=== PATIENT | male | born 1975 | race African-American/Black ===

== ENCOUNTER 2016-08-28 09:29 | Inpatient (IN) | payer OTHER ==
[2016-08-28 10:09] VITALS: BMI 22.8
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
[2016-08-28] MEDS ORDERED: P-EPHED 60MG/TRIPROLIDI 2.5MG TABLET PO PRN (10:27)
[2016-08-28] MEDS ORDERED: MAGNESIUM HYDROX 2400MG/30ML ORAL SUSPENSION 30 ML CUP PO PRN (10:27)
[2016-08-28] MEDS ORDERED: diphenhydrAMINE HCL 50 MG CAPSULE PO PRN (10:27)
[2016-08-28] MEDS ORDERED: MAGNESIUM CITRATE 300 ML BOTTLE PO PRN (10:27)
[2016-08-28] MEDS ORDERED: IBUPROFEN 400 MG TABLET (FP) PO PRN (10:27)
[2016-08-28] MEDS ORDERED: chlordiazePOXIDE HCL 25 MG CAPSULE PO PRN (10:27)
[2016-08-28] MEDS ORDERED: ACETAMINOPHEN 325 MG TABLET (FP) PO PRN (10:27)
[2016-08-28] MEDS ORDERED: guaiFENesin/D-METHORPHAN HB 10 ML UNIT-DOSE CUPS PO PRN (10:27)
[2016-08-28] MEDS ORDERED: hydrOXYzine PAMOATE 50 MG CAPSULE (FP) PO PRN (10:27)
[2016-08-28] MEDS ORDERED: LOPERAMIDE HCL 2 MG CAPSULE PO PRN (10:27)
[2016-08-28] MEDS ORDERED: MENTHOL/PHENOL 1 EACH UD MM PRN (10:27)
[2016-08-28] MEDS ORDERED: ALBUTEROL SO4 6.7 GM HFA INHALER IH PRN (10:30)
[2016-08-28] MEDS ORDERED: chlordiazePOXIDE HCL 25 MG CAPSULE PO ONE (11:30)
[2016-08-28] MEDS ORDERED: ESTRADIOL 0.05 MG/24 HR TD SCH (12:00)
[2016-08-28] MEDS: BUDESONIDE/FORMETEROL FUMARATE 80/4.5 mcg INHALER IH SCH ×2 (12:50→22:47)
[2016-08-28] MEDS: SILVER SULFADIAZINE 1% TOP CREAM 400 GM JAR TP SCH ×2 (12:56→22:47)
[2016-08-28] MEDS: NICOTINE 21 MG/24 HOURS TOPICAL PATCH TD SCH (12:57)
[2016-08-28 14:43] LABS: URINE APPEARANCE CLEAR; URINE BILIRUBIN NEGATIVE (NEGATIVE); URINE BLOOD NEGATIVE (NEGATIVE); URINE COLOR LTYELLOW; URINE GLUCOSE (UA) NEGATIVE (NEGATIVE); URINE KETONE NEGATIVE (NEGATIVE); URINE LEUK ESTERASE NEGATIVE (NEGATIVE); URINE NITRITE NEGATIVE (NEGATIVE); URINE PROTEIN NEGATIVE (NEGATIVE); URINE UROBILINOGEN NEGATIVE E.U./dl (0.2-1.0)
[2016-08-28] MEDS: chlordiazePOXIDE HCL 25 MG CAPSULE PO SCH ×2 (17:12→22:46)
[2016-08-28] MEDS: THIAMINE HCL 100 MG TABLET (FP) PO SCH (22:47)
[2016-08-29] MEDS: chlordiazePOXIDE HCL 25 MG CAPSULE PO SCH ×4 (07:51→22:39)
[2016-08-29] MEDS ORDERED: ESTRADIOL 6 MG PO SCH (10:00)
[2016-08-29 10:31] LABS: ALBUMIN 3.3 g/dl (3.4-5.0); ANION GAP 11 (8-16); CALCIUM 8.5 mg/dL (8.5-10.1); CO2 27 mmol/L (21-32); COCKROFT - GAULT 84.58; GLUCOSE,RANDOM 103 mg/dL (74-106); SGOT/AST 37 U/L (15-37); SGPT/ALT 33 U/L (12-78)
[2016-08-29 10:33] LABS: ALK PHOS 55 U/L (45-117); BILIRUBIN,TOTAL 0.4 mg/dL (0.2-1.0)
[2016-08-29] MEDS: FINASTERIDE 5 MG TABLET (FP) PO SCH (10:47)
[2016-08-29] MEDS: FERROUS SO4 325 MG TABLET (FP) PO SCH (10:47)
[2016-08-29] MEDS: BUDESONIDE/FORMETEROL FUMARATE 80/4.5 mcg INHALER IH SCH ×2 (10:47→22:40)
[2016-08-29] MEDS: PRENATAL VITAMINS W/ FOLIC ACID TABLET (FP) PO SCH (10:47)
[2016-08-29] MEDS: SILVER SULFADIAZINE 1% TOP CREAM 400 GM JAR TP SCH ×2 (10:47→22:40)
[2016-08-29] MEDS: NICOTINE 21 MG/24 HOURS TOPICAL PATCH TD SCH (10:48)
--- NOTE | 2016-08-29 11:08 | EKG ---
Test Reason : Blood Pressure : / mmHG Vent. Rate : 085 BPM Atrial Rate : 085 BPM P-R Int : 124 ms QRS Dur : 094 ms QT Int : 364 ms P-R-T Axes : 080 072 058 degrees QTc Int : 433 ms NORMAL SINUS RHYTHM BIATRIAL ENLARGEMENT LEFT VENTRICULAR HYPERTROPHY ABNORMAL ECG NO PREVIOUS ECGS AVAILABLE Confirmed by MD NIKO, SHIKHA ([id number]) on 08/29/2016 11:07:48 AM Referred By: Confirmed By:SHIKHA POPE MD
[2016-08-29 11:17] LABS: MCH 26.7 pg (25.7-33.7); MCHC 32.2 g/dl (32.0-35.9); MEAN CELL VOLUME 83.1 fl (80-96); MEAN PLT VOLUME 8.4 fl (7.5-11.1); PLATELET COUNT 202 K/MM3 (134-434); RDW 13.6 % (11.9-15.9); WHITE BLOOD COUNT 6.7 K/mm3 (4.0-10.0)
--- NOTE | 2016-08-29 12:27 | PN ---
S CIWA - CIWA Score Nausea/Vomitin Muscle Tremors: 3 Anxiety: 3 Agitation: 3 Paroxysmal Sweats: 2 Orientation: 0-Oriented Tacttile Disturbances: 1-Very Mild Itch/Numbness Auditory Disturbances: 1-Very Mild Visual Disturbances: 1-Very Mild Sensitivity Headache: 2-Mild CIWA-Ar Total Score: 19 S Progress Note (SOAP) Subjective: ALERT,IRRITABLE,ANXIOUS,INTERRUPTED SLEEP,ORAL CANDIDIASIS Objective: 08/29/16 12:24 Vital Signs Temperature 99 F 08/29/16 09:48 Pulse Rate 99 H 08/29/16 09:48 Respiratory Rate 18 08/29/16 09:48 Blood Pressure 118/85 08/29/16 09:48 O2 Sat by Pulse Oximetry (%) 08/29/16 12:24 EKG NSR,LVH Laboratory Last Values WBC 6.7 K/mm3 (4.0-10.0) 08/29/16 07:40 RBC 4.65 M/mm3 (4.00-5.60) 08/29/16 07:40 Hgb 12.4 GM/dL (11.7-16.9) 08/29/16 07:40 Hct 38.6 % (35.4-49) 08/29/16 07:40 MCV 83.1 fl (80-96) 08/29/16 07:40 MCHC 32.2 g/dl (32.0-35.9) 08/29/16 07:40 RDW 13.6 % (11.9-15.9) 08/29/16 07:40 Plt Count 202 K/MM3 (134-434) D 08/29/16 07:40 MPV 8.4 fl (7.5-11.1) 08/29/16 07:40 Sodium 142 mmol/L (136-145) 08/29/16 07:40 Potassium 3.8 mmol/L (3.5-5.1) 08/29/16 07:40 Chloride 104 mmol/L (98-107) 08/29/16 07:40 Carbon Dioxide 27 mmol/L (21-32) 08/29/16 07:40 Anion Gap 11 (8-16) 08/29/16 07:40 BUN 13 mg/dL (7-18) D 08/29/16 07:40 Creatinine 1.0 mg/dL (0.7-1.3) 08/29/16 07:40 Creat Clearance w eGFR > 60 (>60) 08/29/16 07:40 Random Glucose 103 mg/dL (74-106) 08/29/16 07:40 Calcium 8.5 mg/dL (8.5-10.1) 08/29/16 07:40 Total Bilirubin 0.4 mg/dL (0.2-1.0) D 08/29/16 07:40 AST 37 U/L (15-37) D 08/29/16 07:40 ALT 33 U/L (12-78) 08/29/16 07:40 Alkaline Phosphatase 55 U/L (45-117) 08/29/16 07:40 Total Protein 7.0 g/dl (6.4-8.2) 08/29/16 07:40 Albumin 3.3 g/dl (3.4-5.0) L 08/29/16 07:40 Urine Color Ltyellow 08/28/16 13:00 Urine Appearance Clear 08/28/16 13:00 Urine pH 6.0 (5.0-8.0) 08/28/16 13:00 Ur Specific [place] 1.015 (1.005-1.025) 08/28/16 13:00 Urine Protein Negative (NEGATIVE) 08/28/16 13:00 Urine Glucose (UA) Negative (NEGATIVE) 08/28/16 13:00 Urine Ketones Negative (NEGATIVE) 08/28/16 13:00 Urine Blood Negative (NEGATIVE) 08/28/16 13:00 Urine Nitrite Negative (NEGATIVE) 08/28/16 13:00 Urine Bilirubin Negative (NEGATIVE) 08/28/16 13:00 Urine Urobilinogen Negative E.U./dl (0.2-1.0) 08/28/16 13:00 Ur Leukocyte Esterase Negative (NEGATIVE) 08/28/16 13:00 RPR Titer Nonreactive (NONREACTIVE) 08/29/16 07:40 Assessment: 08/29/16 12:27 WITHDRAWAL SYMPTOM Plan: CONTINUE DETOX
[2016-08-29] MEDS: MAG HYDROX/AL HYDROX/SIMETH 30 ML UNIT-DOSE CUP PO PRN (14:30)
[2016-08-29] MEDS: CLOTRIMAZOLE 10 MG TROCHE (FP) PO SCH ×3 (14:30→22:40)
[2016-08-29] MEDS: THIAMINE HCL 100 MG TABLET (FP) PO SCH (22:40)
[2016-08-30] MEDS: FERROUS SO4 325 MG TABLET (FP) PO SCH (07:31)
[2016-08-30] MEDS: CLOTRIMAZOLE 10 MG TROCHE (FP) PO SCH ×5 (07:32→22:30)
[2016-08-30] MEDS: chlordiazePOXIDE HCL 25 MG CAPSULE PO SCH ×2 (07:33→10:26)
[2016-08-30] MEDS: PRENATAL VITAMINS W/ FOLIC ACID TABLET (FP) PO SCH (10:26)
[2016-08-30] MEDS: FINASTERIDE 5 MG TABLET (FP) PO SCH (10:27)
[2016-08-30] MEDS: BUDESONIDE/FORMETEROL FUMARATE 80/4.5 mcg INHALER IH SCH ×2 (10:27→22:38)
[2016-08-30] MEDS: NICOTINE 21 MG/24 HOURS TOPICAL PATCH TD SCH (10:27)
--- NOTE | 2016-08-30 10:27 | PN ---
[facility] CIWA - CIWA Score Nausea/Vomitin-No Nausea/No Vomiting Muscle Tremors: 4-Moderate,w/Arms Extend Anxiety: 4-Mod. Anxious/Guarded Agitation: 4-Moderately Restless Paroxysmal Sweats: 3 Orientation: 0-Oriented Tacttile Disturbances: 0-None Auditory Disturbances: 0-None Visual Disturbances: 0-None Headache: 0-None Present CIWA-Ar Total Score: 15 BHS Progress Note (SOAP) Subjective: sweats interrupted sleep agitation diarrhea oral thrush Objective: 08/30/16 10:26 Vital Signs Temperature 98.1 F 08/30/16 09:58 Pulse Rate 92 H 08/30/16 09:58 Respiratory Rate 16 08/30/16 09:58 Blood Pressure 122/84 08/30/16 09:58 O2 Sat by Pulse Oximetry (%) Laboratory Tests 08/28/16 08/29/16 08/29/16 13:00 07:40 07:40 WBC 6.7 RBC 4.65 Hgb 12.4 Hct 38.6 MCV 83.1 MCHC 32.2 RDW 13.6 Plt Count 202 D MPV 8.4 Sodium 142 Potassium 3.8 Chloride 104 Carbon Dioxide 27 Anion Gap 11 BUN 13 D Creatinine 1.0 Creat Clearance w eGFR > 60 Random Glucose 103 Calcium 8.5 Total Bilirubin 0.4 D AST 37 D ALT 33 Alkaline Phosphatase 55 Total Protein 7.0 Albumin 3.3 L Urine Color Ltyellow Urine Appearance Clear Urine pH 6.0 Ur Specific [place] 1.015 Urine Protein Negative Urine Glucose (UA) Negative Urine Ketones Negative Urine Blood Negative Urine Nitrite Negative Urine Bilirubin Negative Urine Urobilinogen Negative Ur Leukocyte Esterase Negative RPR Titer 08/29/16 07:40 WBC RBC Hgb Hct MCV MCHC RDW Plt Count MPV Sodium Potassium Chloride Carbon Dioxide Anion Gap BUN Creatinine Creat Clearance w eGFR Random Glucose Calcium Total Bilirubin AST ALT Alkaline Phosphatase Total Protein Albumin Urine Color Urine Appearance Urine pH Ur Specific [place] Urine Protein Urine Glucose (UA) Urine Ketones Urine Blood Urine Nitrite Urine Bilirubin Urine Urobilinogen Ur Leukocyte Esterase RPR Titer Nonreactive awake/alert ambulating no acute distress Assessment: 08/30/16 10:26 withdrawal sx Plan: continue detox immodium prn increase fluids continue mycelex thrush
[2016-08-30] MEDS: SILVER SULFADIAZINE 1% TOP CREAM 400 GM JAR TP SCH ×2 (10:29→22:38)
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
[2016-08-30] MEDS: chlordiazePOXIDE 5 MG CAPSULE PO SCH ×2 (18:25→22:30)
[2016-08-30] MEDS: MAG HYDROX/AL HYDROX/SIMETH 30 ML UNIT-DOSE CUP PO PRN (19:19)
[2016-08-30] MEDS: THIAMINE HCL 100 MG TABLET (FP) PO SCH (22:30)
[2016-08-30] MEDS: QUEtiapine FUMARATE 100 MG TABLET (FP) PO SCH (22:30)
[2016-08-31] MEDS: chlordiazePOXIDE 5 MG CAPSULE PO SCH ×2 (06:57→10:53)
[2016-08-31] MEDS: CLOTRIMAZOLE 10 MG TROCHE (FP) PO SCH ×4 (06:57→17:41)
[2016-08-31] MEDS: FERROUS SO4 325 MG TABLET (FP) PO SCH (07:05)
--- NOTE | 2016-08-31 09:02 | PN ---
S Progress Note (SOAP) Objective: 08/31/16 09:01 Vital Signs Temperature 99.9 F H 08/31/16 06:31 Pulse Rate 62 08/31/16 06:31 Respiratory Rate 16 08/31/16 06:31 Blood Pressure 120/75 08/31/16 06:31 O2 Sat by Pulse Oximetry (%) Laboratory Tests 08/28/16 08/29/16 08/29/16 13:00 07:40 07:40 WBC 6.7 RBC 4.65 Hgb 12.4 Hct 38.6 MCV 83.1 MCHC 32.2 RDW 13.6 Plt Count 202 D MPV 8.4 Sodium 142 Potassium 3.8 Chloride 104 Carbon Dioxide 27 Anion Gap 11 BUN 13 D Creatinine 1.0 Creat Clearance w eGFR > 60 Random Glucose 103 Calcium 8.5 Total Bilirubin 0.4 D AST 37 D ALT 33 Alkaline Phosphatase 55 Total Protein 7.0 Albumin 3.3 L Urine Color Ltyellow Urine Appearance Clear Urine pH 6.0 Ur Specific [place] 1.015 Urine Protein Negative Urine Glucose (UA) Negative Urine Ketones Negative Urine Blood Negative Urine Nitrite Negative Urine Bilirubin Negative Urine Urobilinogen Negative Ur Leukocyte Esterase Negative RPR Titer 08/29/16 07:40 WBC RBC Hgb Hct MCV MCHC RDW Plt Count MPV Sodium Potassium Chloride Carbon Dioxide Anion Gap BUN Creatinine Creat Clearance w eGFR Random Glucose Calcium Total Bilirubin AST ALT Alkaline Phosphatase Total Protein Albumin Urine Color Urine Appearance Urine pH Ur Specific [place] Urine Protein Urine Glucose (UA) Urine Ketones Urine Blood Urine Nitrite Urine Bilirubin Urine Urobilinogen Ur Leukocyte Esterase RPR Titer Nonreactive Assessment: 08/31/16 09:02 witrhdrawal sx;s Plan: cont. detox increase fluids d/c in am
[2016-08-31] MEDS: PRENATAL VITAMINS W/ FOLIC ACID TABLET (FP) PO SCH (10:51)
[2016-08-31] MEDS: FINASTERIDE 5 MG TABLET (FP) PO SCH (10:51)
[2016-08-31] MEDS: BUDESONIDE/FORMETEROL FUMARATE 80/4.5 mcg INHALER IH SCH (10:52)
[2016-08-31] MEDS: SILVER SULFADIAZINE 1% TOP CREAM 400 GM JAR TP SCH (10:52)
[2016-08-31] MEDS: NICOTINE 21 MG/24 HOURS TOPICAL PATCH TD SCH (10:52)
[2016-08-31] MEDS: chlordiazePOXIDE HCL 10 MG CAPSULE PO SCH (17:41)
[2016-09-01] MEDS: CLOTRIMAZOLE 10 MG TROCHE (FP) PO SCH ×3 (00:14→10:35)
[2016-09-01] MEDS: chlordiazePOXIDE HCL 10 MG CAPSULE PO SCH ×3 (00:14→11:30)
[2016-09-01] MEDS: THIAMINE HCL 100 MG TABLET (FP) PO SCH (00:15)
[2016-09-01] MEDS: BUDESONIDE/FORMETEROL FUMARATE 80/4.5 mcg INHALER IH SCH ×2 (00:15→10:37)
[2016-09-01] MEDS: QUEtiapine FUMARATE 100 MG TABLET (FP) PO SCH (00:15)
[2016-09-01] MEDS: SILVER SULFADIAZINE 1% TOP CREAM 400 GM JAR TP SCH ×2 (00:15→10:36)
[2016-09-01] MEDS: FERROUS SO4 325 MG TABLET (FP) PO SCH (08:04)
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
[2016-09-01] MEDS: PRENATAL VITAMINS W/ FOLIC ACID TABLET (FP) PO SCH (10:35)
[2016-09-01] MEDS: FINASTERIDE 5 MG TABLET (FP) PO SCH (10:35)
[2016-09-01] MEDS: NICOTINE 21 MG/24 HOURS TOPICAL PATCH TD SCH (10:36)
[2016-09-01 10:48] VITALS: BP 126/98; PULSE 87; TEMP 97.3
== END 2016-09-01 11:49 | disposition home or self-care (01) | DRG 896 ==
LOC: YASAS 09:29 → Y6N 11:09
PROVIDERS: ADMIT Internal Medicine Addiction Medicine; ATTEND Internal Medicine Addiction Medicine
PROC: HZ2ZZZZ Detoxification Services for Substance Abuse Treatment (ICD-10-PCS; principal; 2016-08-28)
DX: F19.230 Other psychoactive substance dependence with withdrawal, uncomplicated (principal); B20 Human immunodeficiency virus [HIV] disease; F14.20 Cocaine dependence, uncomplicated; F10.230 Alcohol dependence with withdrawal, uncomplicated; F12.20 Cannabis dependence, uncomplicated; F17.210 Nicotine dependence, cigarettes, uncomplicated; F31.9 Bipolar disorder, unspecified; F19.24 Other psychoactive substance dependence with psychoactive substance-induced mood disorder; J45.909 Unspecified asthma, uncomplicated; I10 Essential (primary) hypertension; D64.9 Anemia, unspecified; Z86.69 Personal history of other diseases of the nervous system and sense organs; Z91.5 Personal history of self-harm; Z87.890 Personal history of sex reassignment; Z87.898 Personal history of other specified conditions; T54.3X1D Toxic effect of corrosive alkalis and alkali-like substances, accidental (unintentional), subsequent encounter; T25.7 Corrosion of third degree of ankle and foot
CPT/HCPCS: 36415; 80053; 81003; 85027; 86593; 93005; 93010

== ENCOUNTER 2016-11-01 12:10 | Inpatient (IN) | payer OTHER ==
[2016-11-01 16:24] VITALS: BMI 22.3
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
[2016-11-01] MEDS ORDERED: MAGNESIUM CITRATE 300 ML BOTTLE PO PRN (20:12)
[2016-11-01] MEDS ORDERED: LOPERAMIDE HCL 2 MG CAPSULE PO PRN (20:12)
[2016-11-01] MEDS ORDERED: guaiFENesin/D-METHORPHAN HB 10 ML UNIT-DOSE CUPS PO PRN (20:12)
[2016-11-01] MEDS ORDERED: P-EPHED 60MG/TRIPROLIDI 2.5MG TABLET PO PRN (20:12)
[2016-11-01] MEDS ORDERED: MENTHOL/PHENOL 1 EACH UD MM PRN (20:12)
[2016-11-01] MEDS ORDERED: diphenhydrAMINE HCL 50 MG CAPSULE PO PRN (20:12)
[2016-11-01] MEDS ORDERED: ACETAMINOPHEN 325 MG TABLET (FP) PO PRN (20:12)
[2016-11-01] MEDS ORDERED: chlordiazePOXIDE HCL 25 MG CAPSULE PO ONE (20:12)
[2016-11-01] MEDS ORDERED: MAGNESIUM HYDROX 2400MG/30ML ORAL SUSPENSION 30 ML CUP PO PRN (20:12)
[2016-11-01] MEDS ORDERED: chlordiazePOXIDE HCL 25 MG CAPSULE PO PRN (20:12)
[2016-11-01] MEDS ORDERED: MAG HYDROX/AL HYDROX/SIMETH 30 ML UNIT-DOSE CUP PO PRN (20:12)
[2016-11-01] MEDS ORDERED: hydrOXYzine PAMOATE 25 MG CAPSULE (FP) PO PRN (20:12)
[2016-11-01] MEDS ORDERED: IBUPROFEN 400 MG TABLET (FP) PO PRN (20:12)
[2016-11-01] MEDS: NICOTINE 21 MG/24 HOURS TOPICAL PATCH TD SCH (21:43)
[2016-11-01] MEDS: THIAMINE HCL 100 MG TABLET (FP) PO SCH (21:45)
[2016-11-01] MEDS: chlordiazePOXIDE HCL 25 MG CAPSULE PO SCH (23:07)
[2016-11-01 23:14] LABS: URINE APPEARANCE CLEAR; URINE BILIRUBIN NEGATIVE (NEGATIVE); URINE BLOOD NEGATIVE (NEGATIVE); URINE COLOR LTYELLOW; URINE GLUCOSE (UA) NEGATIVE (NEGATIVE); URINE KETONE NEGATIVE (NEGATIVE); URINE LEUK ESTERASE TRACE (NEGATIVE); URINE NITRITE NEGATIVE (NEGATIVE); URINE PROTEIN NEGATIVE (NEGATIVE); URINE UROBILINOGEN NEGATIVE mg/dL (0.2-1.0)
[2016-11-01 23:18] LABS: URINE BACTERIA RARE /hpf (NONE SEEN); URINE RBC 3 /hpf (0-3); URINE WBC 10 /hpf (3-5)
[2016-11-02] MEDS: chlordiazePOXIDE HCL 25 MG CAPSULE PO SCH ×4 (06:02→22:48)
[2016-11-02] MEDS: FERROUS SO4 325 MG TABLET (FP) PO SCH (08:31)
[2016-11-02] MEDS ORDERED: ABACAVIR SULFATE 300 MG PO SCH (10:00)
[2016-11-02] MEDS ORDERED: PATIENT'S OWN MEDICATION (NON-FORMULARY) (Dolutegravir Sodium 50 MG) PO SCH (10:00)
[2016-11-02] MEDS ORDERED: PATIENT'S OWN MEDICATION (NON-FORMULARY) (Darunavir/Cobicistat [Prezcobix 800 Mg-150 Mg Ta PO SCH (10:00)
[2016-11-02] MEDS ORDERED: ESTRADIOL 6 MG PO SCH (10:00)
[2016-11-02] MEDS: PRENATAL VITAMINS W/ FOLIC ACID TABLET (FP) PO SCH (10:22)
[2016-11-02] MEDS: NICOTINE 21 MG/24 HOURS TOPICAL PATCH TD SCH (10:23)
[2016-11-02 10:31] LABS: MCH 26.9 pg (25.7-33.7); MCHC 32.5 g/dl (32.0-35.9); MEAN CELL VOLUME 82.7 fl (80-96); PLATELET COUNT 196 K/MM3 (134-434); RDW 13.5 % (11.9-15.9); WHITE BLOOD COUNT 3.7 K/mm3 (4.0-10.0)
--- NOTE | 2016-11-02 10:54 | PN ---
S CIWA - CIWA Score Nausea/Vomitin-No Nausea/No Vomiting Muscle Tremors: 4-Moderate,w/Arms Extend Anxiety: 3 Agitation: 4-Moderately Restless Paroxysmal Sweats: 3 Orientation: 0-Oriented Tacttile Disturbances: 0-None Auditory Disturbances: 0-None Visual Disturbances: 0-None Headache: 1-Very Mild CIWA-Ar Total Score: 15 BHS Progress Note (SOAP) Subjective: irritable sweats shakes tired agitation I want my HIV meds at night time Objective: 11/02/16 10:53 Vital Signs Temperature 96.9 F L 11/02/16 10:40 Pulse Rate 75 11/02/16 10:40 Respiratory Rate 20 11/02/16 10:40 Blood Pressure 97/61 11/02/16 10:40 O2 Sat by Pulse Oximetry (%) Laboratory Tests 11/01/16 11/02/16 23:00 06:30 WBC 3.7 L D RBC 4.46 Hgb 12.0 Hct 36.9 MCV 82.7 MCH 26.9 MCHC 32.5 RDW 13.5 Plt Count 196 MPV 8.0 Urine Color Ltyellow Urine Appearance Clear Urine pH 5.0 Ur Specific [place] 1.025 Urine Protein Negative Urine Glucose (UA) Negative Urine Ketones Negative Urine Blood Negative Urine Nitrite Negative Urine Bilirubin Negative Urine Urobilinogen Negative Ur Leukocyte Esterase Trace Urine RBC 3 Urine WBC 10 Ur Epithelial Cells Rare Urine Bacteria Rare labs pending awake/alert ambulating no acute distress Assessment: 11/02/16 10:57 withdrawal sx Plan: continue detox increase fluids medication time changed to 10pm as per pt request. labs pending
[2016-11-02 10:59] LABS: ALK PHOS 41 U/L (45-117); ANION GAP 6 (8-16); BILIRUBIN,TOTAL 0.4 mg/dL (0.2-1.0); CALCIUM 8.1 mg/dL (8.5-10.1); CO2 25 mmol/L (21-32); CREATININE 0.9 mg/dL (0.7-1.3); GLUCOSE,RANDOM 87 mg/dL (74-106); SGOT/AST 31 U/L (15-37); SGPT/ALT 24 U/L (12-78); TOT PROT 6.3 g/dl (6.4-8.2)
[2016-11-02] MEDS ORDERED: SPIRONOLACTONE 50 MG PO SCH (11:00)
[2016-11-02] MEDS: SPIRONOLACTONE 50 MG PO SCH (12:15)
--- NOTE | 2016-11-02 16:10 | CONSULT ---
[facility] Psychiatric Consult - Data Date of interview: 11/02/16 Admission source: [facility] Identifying data: One of multiple admissions to [facility] for this 41 y/o transgender male seeking detox treatment on for alcohol,cannabis and cocaine (crack) dependence.Patient is single without children,domiciled and supported on [employer] funds. Substance Abuse History: Discussed in this interview.Patient confirmed all elements included in this [facility] report. - Smoking Cessation. Smoking history: Current every day smoker. Have you smoked in the past 12 months: Yes. Aproximately how many cigarettes per day: 20. Hx Chewing Tobacco Use: No. Initiated information on smoking cessation: Yes. 'Breaking Loose' booklet given : 11/01/16. - Substance & Tx. History. Hx Alcohol Use: Yes. Hx Substance Use : No. Substance Use Type: Alcohol, Cocaine. Hx Substance Use Treatment: Yes ( [facility] 08/28/16 to 09/01/16). - Substances Abused. Alcohol. Route: Oral. Frequency: Daily. Amount used: liquor- 2 pints, beer- 2 six packs. Age of first use: 12. Date of Last Use: 11/01/16. Cocaine. Route: Smoking. Frequency: Daily. Amount used: 100$. Age of first use: 23. Date of Last Use: 11/01/16. Appreciated. Medical History: No changes : HIV infection (1999),bronchial asthma,anemia and recent onset of seizures (drug-related) in 2016. Psychiatric History: Patient is an unreliable historian.In this interview he denies having a psychiatric history.This contrasts with information provided to this resume writer in a previous interview on 08/30/16 .As follows : " history of three psychiatric hospitalizations since childhood.First psychiatric problems are reported to having occurred at age 12 (first suicide attempt and hospitalization at [facility]).Patient states that she used the antihypertensive medications of her grand mother.Ms Hinojosa is known to several institutions : [facility].Patient endorses the diagnosis of Bipolar Disorder but she also indicates total non-adherence to OPD care." I don't see psychiatrists outside.I used to go to [facility]." No recent history of suicide attempts.End of quotation. Physical/Sexual Abuse/Trauma History: Patient declines to discuss this domain. Additional Comment: Urine Drug Screen Results: YANNICK-Cocaine.Noted. Mental Status Exam - Mental Status Exam Alert and Oriented to: Time, Place, Person Cognitive Function: Good Patient Appearance: Unkempt, Disheveled Mood: Euthymic Affect: Normal Range Patient Behavior: Passive (indifferent,unconcerned), Cooperative (superficially) Speech Pattern: Clear Voice Loudness: Normal Thought Process: Goal Oriented Thought Disorder: Not Present Hallucinations: Denies Suicidal Ideation: Denies Homicidal Ideation: Denies Insight/Judgement: Poor Sleep: Well Appetite: Good Muscle strength/Tone: Normal Gait/Station: Normal Psychiatric Findings - Problem List ([place] 1, 2,3) (1) Alcohol dependence with uncomplicated withdrawal Current Visit: Yes Status: Acute (2) Cocaine dependence Current Visit: Yes Status: Acute (3) Nicotine dependence Current Visit: Yes Status: Acute Qualifiers: Nicotine product type: cigarettes Substance use status: uncomplicated Qualified Code(s): F17.210 - Nicotine dependence, cigarettes, uncomplicated (4) Acquired immune deficiency syndrome (AIDS) Current Visit: Yes Status: Chronic (5) Asthma Current Visit: Yes Status: Chronic Qualifiers: Asthma severity: mild persistent (6) HTN (hypertension) Current Visit: Yes Status: Chronic Qualifiers: Hypertension type: essential hypertension Qualified Code(s): I10 - Essential (primary) hypertension - Initial Treatment Plan Initial Treatment Plan: Psychoeducation offered (patient not receptive) .Detoxification in progress.Observation.
--- NOTE | 2016-11-02 21:57 | EKG ---
Test Reason : Blood Pressure : / mmHG Vent. Rate : 062 BPM Atrial Rate : 062 BPM P-R Int : 136 ms QRS Dur : 096 ms QT Int : 424 ms P-R-T Axes : 066 071 065 degrees QTc Int : 430 ms NORMAL SINUS RHYTHM ST ELEVATION, CONSIDER EARLY REPOLARIZATION WHEN COMPARED WITH ECG OF 28-AUG-2016 11:06, NO SIGNIFICANT CHANGE WAS FOUND Confirmed by JOVANA NIELSON MD ([id number]) on 11/02/2016 9:57:01 PM Referred By: Confirmed By:JOVANA NIELSON MD
[2016-11-02] MEDS: THIAMINE HCL 100 MG TABLET (FP) PO SCH (22:48)
[2016-11-02] MEDS: PATIENT'S OWN MEDICATION (NON-FORMULARY) (Dolutegravir Sodium 50 MG) PO SCH (22:51)
[2016-11-02] MEDS: PATIENT'S OWN MEDICATION (NON-FORMULARY) (Darunavir/Cobicistat [Prezcobix 800 Mg-150 Mg Ta PO SCH (22:52)
[2016-11-02] MEDS: ABACAVIR SULFATE 600 MG PO SCH (22:52)
[2016-11-03] MEDS: chlordiazePOXIDE HCL 25 MG CAPSULE PO SCH ×4 (06:25→18:02)
[2016-11-03] MEDS: FERROUS SO4 325 MG TABLET (FP) PO SCH (08:16)
--- NOTE | 2016-11-03 10:31 | PN ---
S CIWA - CIWA Score Nausea/Vomitin-No Nausea/No Vomiting Muscle Tremors: 4-Moderate,w/Arms Extend Anxiety: 3 Agitation: 3 Paroxysmal Sweats: 3 Orientation: 0-Oriented Tacttile Disturbances: 0-None Auditory Disturbances: 0-None Visual Disturbances: 0-None Headache: 0-None Present CIWA-Ar Total Score: 13 S Progress Note (SOAP) Subjective: sweats interrupted sleep irritable Objective: 11/03/16 10:30 Vital Signs Temperature 98.7 F 11/03/16 10:00 Pulse Rate 82 11/03/16 10:00 Respiratory Rate 16 11/03/16 10:00 Blood Pressure 116/86 11/03/16 10:00 O2 Sat by Pulse Oximetry (%) Laboratory Tests 11/01/16 11/02/16 11/02/16 23:00 06:30 06:30 WBC 3.7 L D RBC 4.46 Hgb 12.0 Hct 36.9 MCV 82.7 MCH 26.9 MCHC 32.5 RDW 13.5 Plt Count 196 MPV 8.0 Sodium 142 Potassium 3.7 Chloride 111 H Carbon Dioxide 25 Anion Gap 6 L BUN 21 H D Creatinine 0.9 Creat Clearance w eGFR > 60 Random Glucose 87 Calcium 8.1 L Total Bilirubin 0.4 AST 31 ALT 24 D Alkaline Phosphatase 41 L D Total Protein 6.3 L Albumin 3.0 L Urine Color Ltyellow Urine Appearance Clear Urine pH 5.0 Ur Specific [place] 1.025 Urine Protein Negative Urine Glucose (UA) Negative Urine Ketones Negative Urine Blood Negative Urine Nitrite Negative Urine Bilirubin Negative Urine Urobilinogen Negative Ur Leukocyte Esterase Trace Urine RBC 3 Urine WBC 10 Ur Epithelial Cells Rare Urine Bacteria Rare RPR Titer 11/02/16 06:30 WBC RBC Hgb Hct MCV MCH MCHC RDW Plt Count MPV Sodium Potassium Chloride Carbon Dioxide Anion Gap BUN Creatinine Creat Clearance w eGFR Random Glucose Calcium Total Bilirubin AST ALT Alkaline Phosphatase Total Protein Albumin Urine Color Urine Appearance Urine pH Ur Specific [place] Urine Protein Urine Glucose (UA) Urine Ketones Urine Blood Urine Nitrite Urine Bilirubin Urine Urobilinogen Ur Leukocyte Esterase Urine RBC Urine WBC Ur Epithelial Cells Urine Bacteria RPR Titer Nonreactive awake/alert ambulating no acute distress Assessment: 11/03/16 10:30 withdrawal sx Plan: continue detox increase fluids
[2016-11-03] MEDS: PRENATAL VITAMINS W/ FOLIC ACID TABLET (FP) PO SCH (10:50)
[2016-11-03] MEDS: NICOTINE 21 MG/24 HOURS TOPICAL PATCH TD SCH (10:52)
[2016-11-03] MEDS: ESTRADIOL 2 MG PO SCH (10:53)
[2016-11-03] MEDS: SPIRONOLACTONE 50 MG PO SCH (10:53)
[2016-11-03] MEDS: chlordiazePOXIDE 5 MG CAPSULE PO SCH (22:06)
[2016-11-03] MEDS: THIAMINE HCL 100 MG TABLET (FP) PO SCH (22:07)
[2016-11-03] MEDS: PATIENT'S OWN MEDICATION (NON-FORMULARY) (Dolutegravir Sodium 50 MG) PO SCH (22:08)
[2016-11-03] MEDS: ABACAVIR SULFATE 600 MG PO SCH (22:08)
[2016-11-03] MEDS: PATIENT'S OWN MEDICATION (NON-FORMULARY) (Darunavir/Cobicistat [Prezcobix 800 Mg-150 Mg Ta PO SCH (22:08)
[2016-11-04] MEDS: chlordiazePOXIDE 5 MG CAPSULE PO SCH ×3 (06:10→17:08)
[2016-11-04] MEDS: FERROUS SO4 325 MG TABLET (FP) PO SCH (07:44)
[2016-11-04] MEDS: PRENATAL VITAMINS W/ FOLIC ACID TABLET (FP) PO SCH (10:37)
[2016-11-04] MEDS: ESTRADIOL 2 MG PO SCH (10:38)
[2016-11-04] MEDS: NICOTINE 21 MG/24 HOURS TOPICAL PATCH TD SCH (10:39)
[2016-11-04] MEDS: SPIRONOLACTONE 50 MG PO SCH (10:39)
--- NOTE | 2016-11-04 12:11 | PN ---
BHS Progress Note (SOAP) Subjective: Nausea (mild). Objective: PT. A & O X 3, OBSERVED AMBULATING ON UNIT. NO ACUTE DISTRESS. 11/04/16 12:10 Vital Signs Temperature 97.8 F 11/04/16 10:00 Pulse Rate 86 11/04/16 10:00 Respiratory Rate 18 11/04/16 10:00 Blood Pressure 124/71 11/04/16 10:00 O2 Sat by Pulse Oximetry (%) Laboratory Tests 11/01/16 11/02/16 11/02/16 23:00 06:30 06:30 WBC 3.7 L D RBC 4.46 Hgb 12.0 Hct 36.9 MCV 82.7 MCH 26.9 MCHC 32.5 RDW 13.5 Plt Count 196 MPV 8.0 Sodium 142 Potassium 3.7 Chloride 111 H Carbon Dioxide 25 Anion Gap 6 L BUN 21 H D Creatinine 0.9 Creat Clearance w eGFR > 60 Random Glucose 87 Calcium 8.1 L Total Bilirubin 0.4 AST 31 ALT 24 D Alkaline Phosphatase 41 L D Total Protein 6.3 L Albumin 3.0 L Urine Color Ltyellow Urine Appearance Clear Urine pH 5.0 Ur Specific [place] 1.025 Urine Protein Negative Urine Glucose (UA) Negative Urine Ketones Negative Urine Blood Negative Urine Nitrite Negative Urine Bilirubin Negative Urine Urobilinogen Negative Ur Leukocyte Esterase Trace Urine RBC 3 Urine WBC 10 Ur Epithelial Cells Rare Urine Bacteria Rare RPR Titer 11/02/16 06:30 WBC RBC Hgb Hct MCV MCH MCHC RDW Plt Count MPV Sodium Potassium Chloride Carbon Dioxide Anion Gap BUN Creatinine Creat Clearance w eGFR Random Glucose Calcium Total Bilirubin AST ALT Alkaline Phosphatase Total Protein Albumin Urine Color Urine Appearance Urine pH Ur Specific [place] Urine Protein Urine Glucose (UA) Urine Ketones Urine Blood Urine Nitrite Urine Bilirubin Urine Urobilinogen Ur Leukocyte Esterase Urine RBC Urine WBC Ur Epithelial Cells Urine Bacteria RPR Titer Nonreactive LABS NOTED. Assessment: 11/04/16 12:10 WITHDRAWAL SYMPTOMS. Plan: CONTINUE DETOX.
[2016-11-04] MEDS: chlordiazePOXIDE HCL 10 MG CAPSULE PO SCH (22:19)
[2016-11-04] MEDS: ABACAVIR SULFATE 600 MG PO SCH (22:19)
[2016-11-04] MEDS: PATIENT'S OWN MEDICATION (NON-FORMULARY) (Dolutegravir Sodium 50 MG) PO SCH (22:19)
[2016-11-04] MEDS: THIAMINE HCL 100 MG TABLET (FP) PO SCH (22:19)
[2016-11-04] MEDS: PATIENT'S OWN MEDICATION (NON-FORMULARY) (Darunavir/Cobicistat [Prezcobix 800 Mg-150 Mg Ta PO SCH (22:19)
[2016-11-05] MEDS: chlordiazePOXIDE HCL 10 MG CAPSULE PO SCH ×3 (07:37→17:25)
[2016-11-05] MEDS: FERROUS SO4 325 MG TABLET (FP) PO SCH (08:47)
[2016-11-05] MEDS: ESTRADIOL 2 MG PO SCH (09:44)
[2016-11-05] MEDS: SPIRONOLACTONE 50 MG PO SCH (09:45)
[2016-11-05] MEDS: PRENATAL VITAMINS W/ FOLIC ACID TABLET (FP) PO SCH (09:45)
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
[2016-11-05] MEDS: NICOTINE 21 MG/24 HOURS TOPICAL PATCH TD SCH (10:42)
[2016-11-05] MEDS ORDERED: diphenhydrAMINE HCL 50 MG CAPSULE PO PRN (21:46)
[2016-11-05] MEDS ORDERED: ACETAMINOPHEN 325 MG TABLET (FP) PO PRN (21:46)
[2016-11-05] MEDS ORDERED: guaiFENesin/D-METHORPHAN HB 10 ML UNIT-DOSE CUPS PO PRN ×3 (21:46→21:49)
[2016-11-05] MEDS ORDERED: IBUPROFEN 400 MG TABLET (FP) PO PRN ×2 (21:47→21:48)
[2016-11-05] MEDS ORDERED: LOPERAMIDE HCL 2 MG CAPSULE PO PRN ×2 (21:47→21:48)
[2016-11-05] MEDS ORDERED: hydrOXYzine PAMOATE 25 MG CAPSULE (FP) PO PRN ×2 (21:47→21:48)
[2016-11-05] MEDS ORDERED: MAG HYDROX/AL HYDROX/SIMETH 30 ML UNIT-DOSE CUP PO PRN (21:48)
[2016-11-05] MEDS ORDERED: P-EPHED 60MG/TRIPROLIDI 2.5MG TABLET PO PRN (21:50)
[2016-11-05] MEDS ORDERED: MAGNESIUM CITRATE 300 ML BOTTLE PO PRN (21:50)
[2016-11-05] MEDS ORDERED: MAGNESIUM HYDROX 2400MG/30ML ORAL SUSPENSION 30 ML CUP PO PRN (21:51)
[2016-11-05] MEDS ORDERED: MENTHOL/PHENOL 1 EACH UD MM PRN (21:51)
[2016-11-05] MEDS: ABACAVIR SULFATE 600 MG PO SCH (21:53)
[2016-11-05] MEDS ORDERED: PATIENT'S OWN MEDICATION (NON-FORMULARY) (Darunavir/Cobicistat [Prezcobix 800 Mg-150 Mg Ta PO SCH (22:00)
[2016-11-05] MEDS ORDERED: ABACAVIR SULFATE 600 MG PO SCH (22:00)
[2016-11-05] MEDS ORDERED: PATIENT'S OWN MEDICATION (NON-FORMULARY) (Dolutegravir Sodium 50 MG) PO SCH (22:00)
[2016-11-05] MEDS ORDERED: THIAMINE HCL 100 MG TABLET (FP) PO SCH (22:00)
[2016-11-06 07:29] VITALS: BP 113/75; PULSE 73; TEMP 98.1
[2016-11-06] MEDS ORDERED: FERROUS SO4 325 MG TABLET (FP) PO SCH (08:00)
[2016-11-06] MEDS ORDERED: PT OWN MED DRAWER 7, Y5N ONE (08:00)
[2016-11-06] MEDS ORDERED: NICOTINE 21 MG/24 HOURS TOPICAL PATCH TD SCH (10:00)
[2016-11-06] MEDS ORDERED: SPIRONOLACTONE 50 MG PO SCH (10:00)
[2016-11-06] MEDS ORDERED: PRENATAL VITAMINS W/ FOLIC ACID TABLET (FP) PO SCH (10:00)
[2016-11-06] MEDS ORDERED: ESTRADIOL 2 MG PO SCH (10:00)
== END 2016-11-06 09:20 | disposition left against medical advice (07) | DRG 894 ==
LOC: YASAS 12:10 → Y6N 18:42 → Y3E 11-05 11:24
PROVIDERS: ADMIT Internal Medicine; ATTEND Psychiatry & Neurology Psychiatry
PROC: HZ42ZZZ Group Counseling for Substance Abuse Treatment, Cognitive-Behavioral (ICD-10-PCS; principal; 2016-11-06)
DX: F10.230 Alcohol dependence with withdrawal, uncomplicated (principal); B20 Human immunodeficiency virus [HIV] disease; F14.20 Cocaine dependence, uncomplicated; F12.20 Cannabis dependence, uncomplicated; F17.210 Nicotine dependence, cigarettes, uncomplicated; F39 Unspecified mood [affective] disorder; F19.24 Other psychoactive substance dependence with psychoactive substance-induced mood disorder; I10 Essential (primary) hypertension; D64.9 Anemia, unspecified; Z86.69 Personal history of other diseases of the nervous system and sense organs; Z91.5 Personal history of self-harm; Z87.890 Personal history of sex reassignment; R63.4 Abnormal weight loss; Z68.22 Body mass index [BMI] 22.0-22.9, adult; F64.8 Other gender identity disorders
CPT/HCPCS: 36415; 80053; 81003; 81015; 85027; 86593; 93005; 93010

== ENCOUNTER 2019-02-27 16:18 | Inpatient (IN) | payer OTHER ==
[2019-02-27 19:51] VITALS: BMI 23.4
--- NOTE | 2019-02-27 21:40 | HP ---
CIWA Score Nausea/Vomitin Muscle Tremors: 3 Anxiety: 2 Agitation: 2 Paroxysmal Sweats: 2 Orientation: 0-Oriented Tacttile Disturbances: 0-None Auditory Disturbances: 0-None Visual Disturbances: 0-None Headache: 1-Very Mild CIWA-Ar Total Score: 12 - Admission Criteria OASAS Guidelines: Admission for Medically Managed Detox: Requires at least one of the followin. CIWA greater than 12 2. Seizures within the past 24 hours 3. Delirium tremens within the past 24 hours 4. Hallucinations within the past 24 hours 5. Acute intervention needed for co occurring medical disorder 6. Acute intervention needed for co occurring psychiatric disorder 7. Severe withdrawal that cannot be handled at a lower level of care (continued vomiting, continued diarrhea, abnormal vital signs) requiring intravenous medication and/or fluids 8. Patient presents the following: CIWA greater than 12 Admission Criteria Met: Admission criteria met Admitting History and Physical - Past Medical History ...LMP: 10/01/13 - Smoking History Smoking history: Current every day smoker Have you smoked in the past 12 months: Yes Aproximately how many cigarettes per day: 20 - Alcohol/Substance Use Hx Alcohol Use: Yes Admission ROS [facility] Chief Complaint: alcohol detox Allergies/Adverse Reactions: Allergies Allergy/AdvReac Type Severity Reaction Status Date / Time No Known Allergies Allergy Verified 02/27/19 19:38 History of Present Illness: 43 yo with HIV pos, asthma, no MH problems, was last here 2 years ago. Since then pt has been in an outpt program at [facility]-alcohol support groups, HIV care. Pt states she has been drinking a lot: 2 6packs/day- h/o blackouts, no seizures. Cocaine 4 times a week- $100 each time. HIV- Biktarvy, takes it every day, does not know CD4 or VL. DUR- no controlled meds Utox- THC, carlos, RUPA-0 - Ebola screening Have you traveled outside of the country in the last 21 days: No (N) Have you had contact with anyone from an Ebola affected area: No Do you have a fever: No - Review of Systems Constitutional: No Symptoms Reported EENT: reports: No Symptoms Reported Respiratory: reports: No Symptoms reported Cardiac: reports: No Symptoms Reported GI: reports: No Symptoms Reported : reports: No Symptoms Reported Musculoskeletal: reports: No Symptoms Reported Integumentary: reports: No Symptoms Reported Neuro: reports: No Symptoms reported Endocrine: reports: No Symptoms Reported Hematology: reports: No Symptoms Reported Psychiatric: reports: No Sypmtoms Reported Other Systems: Reviewed and Negative Patient History - Patient Medical History Hx Anemia: Yes (non compliance) Hx Asthma: Yes (on albuterol inhaler) Hx Chronic Obstructive Pulmonary Disease (COPD): No Hx Cancer: No Hx Cardiac Disorders: No Hx Congestive Heart Failure: No Hx Hypertension: No Hx Hypercholesterolemia: No Hx Pacemaker: No HX Cerebrovascular Accident: No Hx Seizures: No Hx Dementia: No Hx Diabetes: No Hx Gastrointestinal Disorders: No Hx Liver Disease: No Hx Genitourinary Disorders: No Hx Sexually Transmitted Disorders: No Hx Renal Disease (ESRD): No Hx Human Immunodeficiency Virus (HIV): Yes (SINCE 1999 - t cells ? 300) Hx Hepatitis C: No Hx Depression: Yes Hx Suicide Attempt: Yes (DRUG OVERDOSE A teen) Hx Bipolar Disorder: Yes Hx Schizophrenia: No - Patient Surgical History Past Surgical History: No Hx Neurologic Surgery: No Hx Cataract Extraction: No Hx Cardiac Surgery: No Hx Lung Surgery: No Hx Breast Surgery: No Hx Breast Biopsy: No Hx Abdominal Surgery: No Hx Appendectomy: No Hx Cholecystectomy: No Hx Genitourinary Surgery: No Hx Section: No Hx Orthopedic Surgery: No Anesthesia Reaction: No - PPD History Date: 08/30/16 Results: 0 - Reproductive History Last Menstrual Period: 10/01/13 - Smoking Cessation Smoking history: Current every day smoker Have you smoked in the past 12 months: Yes Aproximately how many cigarettes per day: 20 Hx Chewing Tobacco Use: No Initiated information on smoking cessation: Yes 'Breaking Loose' booklet given: 02/27/19 - Substances abused Alcohol Substance route: Oral Frequency: Daily Amount used: 2 six packs 12 oz cans Age of first use: 12 Date of last use: 02/27/19 Heroin Substance route: Smoking Frequency: 3-6 times per week Amount used: 1bag Age of first use: 40 Date of last use: 02/24/19 Crack Substance route: Smoking Frequency: Daily Amount used: $100/day Age of first use: 23 Date of last use: 02/26/19 Admission Physical Exam BHS - Vital Signs Vital Signs: Vital Signs - 24 hr 02/27/19 19:45 Temperature 99.6 F Pulse Rate 93 H Respiratory 18 Rate Blood Pressure 123/77 - Physical General Appearance: Yes: Within Normal Limits, Disheveled HEENTM: Yes: Within Normal Limits, Hearing grossly Normal, Normocephalic, Normal Voice Respiratory: Yes: Within Normal Limits, Lungs Clear Neck: Yes: Within Normal Limits Cardiology: Yes: Within Normal Limits, Regular Rhythm, Regular Rate Abdominal: Yes: Within Normal Limits, Normal Bowel Sounds Genitourinary: Yes: Within Normal Limits Back: Yes: Within Normal Limits, Normal Inspection Musculoskeletal: Yes: Within Normal Limits Extremities: Yes: Within Normal Limits, Normal Inspection Neurological: Yes: Within Normal Limits, kai[place] kura [place] maori II-XII NML intact, Fully Oriented Integumentary: Yes: Within Normal Limits Lymphatic: Yes: Within Normal Limits - Diagnostic (1) Acquired immune deficiency syndrome (AIDS) Current Visit: No Status: Chronic (2) Alcohol dependence with uncomplicated withdrawal Current Visit: No Status: Chronic (3) Asthma Current Visit: No Status: Chronic Qualifiers: Asthma severity: mild persistent (4) Cocaine dependence Current Visit: No Status: Chronic (5) Nicotine dependence Current Visit: No Status: Chronic Qualifiers: Nicotine product type: cigarettes Substance use status: uncomplicated Qualified Code(s): F17.210 - Nicotine dependence, cigarettes, uncomplicated Breathalyzer - Breathalyzer Breathalyzer: 0 Urine Drug Screen - Test Device Lot number: [id number] Expiration date: 11/07/20 - Results Urine drug screen results: THC-Marijuana, CARLOS-Cocaine Inpatient Rehab Admission - Rehab Decision to Admit Inpatient rehab admission?: No
[2019-02-27] MEDS ORDERED: NICOTINE POLACRILEX 2 MG GUM BUC PRN (21:48)
[2019-02-27] MEDS ORDERED: MAG HYDROX/AL HYDROX/SIMETH 30 ML UNIT-DOSE CUP PO PRN (21:48)
[2019-02-27] MEDS ORDERED: ONDANSETRON *ODT* 4 MG TABLET SL PRN (21:48)
[2019-02-27] MEDS ORDERED: MENTHOL/PHENOL 1 EACH UD MM PRN (21:48)
[2019-02-27] MEDS ORDERED: LORazepam 1 MG TABLET PO PRN (21:48)
[2019-02-27] MEDS ORDERED: MAGNESIUM HYDROX 2400MG/30ML ORAL SUSPENSION 30 ML CUP PO PRN (21:48)
[2019-02-27] MEDS ORDERED: ACETAMINOPHEN 325 MG TABLET (FP) PO PRN ×2 (21:48)
[2019-02-27] MEDS ORDERED: METHOCARBAMOL 500 MG TABLET PO PRN (21:48)
[2019-02-27] MEDS ORDERED: MELATONIN 5 MG TABLETS PO PRN (21:48)
[2019-02-27] MEDS ORDERED: IBUPROFEN 400 MG TABLET (FP) PO PRN (21:48)
[2019-02-27] MEDS ORDERED: MAGNESIUM CITRATE 300 ML BOTTLE PO PRN (21:48)
[2019-02-27] MEDS ORDERED: BISMUTH SUBSALICYLATE 524 MG/30 ML UD PO PRN (21:48)
[2019-02-27] MEDS ORDERED: hydrOXYzine PAMOATE 25 MG CAPSULE (FP) PO PRN (21:48)
[2019-02-27] MEDS ORDERED: ALBUTEROL SO4 8 GM HFA INHALER IH PRN (22:00)
[2019-02-27] MEDS: QUEtiapine FUMARATE 50 MG TABLET PO SCH (23:20)
[2019-02-27] MEDS: LORazepam 2 MG TABLET PO SCH (23:20)
[2019-02-27] MEDS: THIAMINE HCL 100 MG TABLET (FP) PO SCH (23:22)
[2019-02-28] MEDS: LORazepam 2 MG TABLET PO SCH ×4 (06:34→22:12)
[2019-02-28] MEDS ORDERED: PATIENT'S OWN MEDICATION (NON-FORMULARY) (Bictegrav/Emtricit/Tenofov Ala 1 EACH) PO SCH (10:00)
[2019-02-28 10:14] LABS: HEMOGLOBIN 12.6 GM/dL (10.7-15.3); MCH 27.6 pg (25.7-33.7); MCHC 32.2 g/dl (32.0-36.0); MEAN CELL VOLUME 85.8 fl (80-96); MEAN PLT VOLUME 7.5 fl (7.5-11.1); PLATELET COUNT 270 K/MM3 (134-434); RBC 4.55 M/mm3 (3.60-5.2); RDW 14.4 % (11.6-15.6); WHITE BLOOD COUNT 4.2 K/mm3 (4.0-10.0)
[2019-02-28] MEDS: NICOTINE 21 MG/24 HOURS TOPICAL PATCH TD SCH (10:24)
[2019-02-28] MEDS: SULFAMETHOXAZOLE/TRIMETHOPRIM 800MG/160MG D.S. TABLET PO SCH (10:24)
[2019-02-28] MEDS: PRENATAL VITAMINS W/ FOLIC ACID TABLET (FP) PO SCH (10:24)
[2019-02-28 10:30] LABS: ALBUMIN 2.9 g/dl (3.4-5.0); BILIRUBIN,TOTAL 0.2 mg/dL (0.2-1); BLOOD UREA NITROGEN 20.9 mg/dL (7-18); CALCIUM 8.4 mg/dL (8.5-10.1); CREATININE 1.2 mg/dL (0.55-1.3); POTASSIUM 4.1 mmol/L (3.5-5.1); TOT PROT 6.1 g/dl (6.4-8.2)
[2019-02-28] MEDS: BICTEGRAV/EMTRICIT/TENOFOV (BIKTARVY) 50-200-25 MG TABLET PO SCH (11:00)
[2019-02-28] MEDS: BUDESONIDE/FORMETEROL FUMARATE 80/4.5 mcg INHALER IH SCH ×2 (11:00→22:08)
[2019-02-28] MEDS: ESTRADIOL 2 MG TABLET (NON-FORMULARY) PO SCH (11:00)
--- NOTE | 2019-02-28 12:07 | PN ---
S CIWA - CIWA Score Nausea/Vomitin-Mild Nausea/No Vomiting Muscle Tremors: 3 Anxiety: 3 Agitation: 2 Paroxysmal Sweats: 2 Orientation: 0-Oriented Tacttile Disturbances: 1-Very Mild Itch/Numbness Auditory Disturbances: 0-None Visual Disturbances: 0-None Headache: 1-Very Mild CIWA-Ar Total Score: 13 BHS Progress Note (SOAP) Subjective: 43 years old female admitted on 02/27/19 for alcohol withdrawal sx management treated with ativan detox regimen ate breakfast resting on bed sleeping comfortably limited conversation with staff Objective: 02/28/19 12:10 Vital Signs Temperature 97.5 F L 02/28/19 09:18 Pulse Rate 96 H 02/28/19 09:18 Respiratory Rate 18 02/28/19 09:18 Blood Pressure 112/73 02/28/19 09:18 O2 Sat by Pulse Oximetry (%) Laboratory Last Values WBC 4.2 K/mm3 (4.0-10.0) 02/28/19 08:15 RBC 4.55 M/mm3 (3.60-5.2) 02/28/19 08:15 Hgb 12.6 GM/dL (10.7-15.3) 02/28/19 08:15 Hct 39.0 % (32.4-45.2) 02/28/19 08:15 MCV 85.8 fl (80-96) 02/28/19 08:15 MCH 27.6 pg (25.7-33.7) 02/28/19 08:15 MCHC 32.2 g/dl (32.0-36.0) 02/28/19 08:15 RDW 14.4 % (11.6-15.6) 02/28/19 08:15 Plt Count 270 K/MM3 (134-434) D 02/28/19 08:15 MPV 7.5 fl (7.5-11.1) 02/28/19 08:15 Sodium 140 mmol/L (136-145) 02/28/19 08:15 Potassium 4.1 mmol/L (3.5-5.1) 02/28/19 08:15 Chloride 108 mmol/L (98-107) H 02/28/19 08:15 Carbon Dioxide 26 mmol/L (21-32) 02/28/19 08:15 Anion Gap 7 MMOL/L (8-16) L 02/28/19 08:15 BUN 20.9 mg/dL (7-18) H 02/28/19 08:15 Creatinine 1.2 mg/dL (0.55-1.3) 02/28/19 08:15 Est GFR (CKD-EPI)AfAm 63.65 02/28/19 08:15 Est GFR (CKD-EPI)NonAf 54.92 02/28/19 08:15 Random Glucose 113 mg/dL (74-106) H 02/28/19 08:15 Calcium 8.4 mg/dL (8.5-10.1) L 02/28/19 08:15 Total Bilirubin 0.2 mg/dL (0.2-1) 02/28/19 08:15 AST 29 U/L (15-37) 02/28/19 08:15 ALT 29 U/L (13-61) 02/28/19 08:15 Alkaline Phosphatase 42 U/L (45-117) L 02/28/19 08:15 Total Protein 6.1 g/dl (6.4-8.2) L 02/28/19 08:15 Albumin 2.9 g/dl (3.4-5.0) L 02/28/19 08:15 lab noted Assessment: 02/28/19 12:10 alcohol withdrawal sx Plan: continue ativan detox regimen
--- NOTE | 2019-02-28 15:20 | CONSULT ---
[facility] Psychiatric Consult - Data Date of interview: 02/28/19 Admission source: [facility] Identifying data: Patient is approached at bedside. THREE visits. Found asleep and resting confortably. No evidence of distress. Nursing staff is made aware.
[2019-02-28] MEDS: QUEtiapine FUMARATE 50 MG TABLET PO SCH (22:08)
[2019-02-28] MEDS: THIAMINE HCL 100 MG TABLET (FP) PO SCH (22:08)
[2019-03-01] MEDS: LORazepam 1 MG TABLET PO SCH ×4 (05:39→22:09)
[2019-03-01] MEDS: BUDESONIDE/FORMETEROL FUMARATE 80/4.5 mcg INHALER IH SCH ×2 (10:38→22:08)
[2019-03-01] MEDS: PRENATAL VITAMINS W/ FOLIC ACID TABLET (FP) PO SCH (10:38)
[2019-03-01] MEDS: SULFAMETHOXAZOLE/TRIMETHOPRIM 800MG/160MG D.S. TABLET PO SCH (10:38)
[2019-03-01] MEDS: ESTRADIOL 2 MG TABLET (NON-FORMULARY) PO SCH (10:39)
[2019-03-01] MEDS: BICTEGRAV/EMTRICIT/TENOFOV (BIKTARVY) 50-200-25 MG TABLET PO SCH (10:39)
[2019-03-01] MEDS: NICOTINE 21 MG/24 HOURS TOPICAL PATCH TD SCH (10:40)
--- NOTE | 2019-03-01 12:45 | PN ---
S CIWA - CIWA Score Nausea/Vomitin-Mild Nausea/No Vomiting Muscle Tremors: 3 Anxiety: 2 Agitation: 0-Normal Activity Paroxysmal Sweats: 1-Minimal Palms Moist Orientation: 0-Oriented Tacttile Disturbances: 1-Very Mild Itch/Numbness Auditory Disturbances: 0-None Visual Disturbances: 0-None Headache: 1-Very Mild CIWA-Ar Total Score: 9 BHS Progress Note (SOAP) Subjective: 43 years old female admitted on 02/27/19 for alcohol withdrawal sx management treatd with ativan detox regimen ate breakfast tolerated food and fluid well social with peers in day room Objective: 03/01/19 12:45 Vital Signs Temperature 97.6 F 03/01/19 09:06 Pulse Rate 94 H 03/01/19 09:06 Respiratory Rate 18 03/01/19 09:06 Blood Pressure 115/71 03/01/19 09:06 O2 Sat by Pulse Oximetry (%) Laboratory Last Values WBC 4.2 K/mm3 (4.0-10.0) 02/28/19 08:15 RBC 4.55 M/mm3 (3.60-5.2) 02/28/19 08:15 Hgb 12.6 GM/dL (10.7-15.3) 02/28/19 08:15 Hct 39.0 % (32.4-45.2) 02/28/19 08:15 MCV 85.8 fl (80-96) 02/28/19 08:15 MCH 27.6 pg (25.7-33.7) 02/28/19 08:15 MCHC 32.2 g/dl (32.0-36.0) 02/28/19 08:15 RDW 14.4 % (11.6-15.6) 02/28/19 08:15 Plt Count 270 K/MM3 (134-434) D 02/28/19 08:15 MPV 7.5 fl (7.5-11.1) 02/28/19 08:15 Sodium 140 mmol/L (136-145) 02/28/19 08:15 Potassium 4.1 mmol/L (3.5-5.1) 02/28/19 08:15 Chloride 108 mmol/L (98-107) H 02/28/19 08:15 Carbon Dioxide 26 mmol/L (21-32) 02/28/19 08:15 Anion Gap 7 MMOL/L (8-16) L 02/28/19 08:15 BUN 20.9 mg/dL (7-18) H 02/28/19 08:15 Creatinine 1.2 mg/dL (0.55-1.3) 02/28/19 08:15 Est GFR (CKD-EPI)AfAm 63.65 02/28/19 08:15 Est GFR (CKD-EPI)NonAf 54.92 02/28/19 08:15 Random Glucose 113 mg/dL (74-106) H 02/28/19 08:15 Calcium 8.4 mg/dL (8.5-10.1) L 02/28/19 08:15 Total Bilirubin 0.2 mg/dL (0.2-1) 02/28/19 08:15 AST 29 U/L (15-37) 02/28/19 08:15 ALT 29 U/L (13-61) 02/28/19 08:15 Alkaline Phosphatase 42 U/L (45-117) L 02/28/19 08:15 Total Protein 6.1 g/dl (6.4-8.2) L 02/28/19 08:15 Albumin 2.9 g/dl (3.4-5.0) L 02/28/19 08:15 RPR Titer Nonreactive (NONREACTIVE) 02/28/19 08:15 lab noted Assessment: 03/01/19 12:45 alcohol withdrawal sx Plan: continue ativan detox regimen
[2019-03-01 18:43] LABS: URINE APPEARANCE CLEAR; URINE BILIRUBIN NEGATIVE (NEGATIVE); URINE COLOR YELLOW; URINE GLUCOSE (UA) NEGATIVE (NEGATIVE); URINE KETONE TRACE (NEGATIVE); URINE LEUK ESTERASE NEGATIVE (NEGATIVE); URINE NITRITE NEGATIVE (NEGATIVE); URINE PROTEIN NEGATIVE (NEGATIVE); URINE UROBILINOGEN 0.2 mg/dL (0.2-1.0)
[2019-03-01] MEDS: THIAMINE HCL 100 MG TABLET (FP) PO SCH (22:09)
[2019-03-01] MEDS: QUEtiapine FUMARATE 50 MG TABLET PO SCH (22:09)
[2019-03-02] MEDS ORDERED: LORazepam 0.5 MG TABLET PO PRN
[2019-03-02] MEDS: LORazepam 0.5 MG TABLET PO SCH ×4 (07:56→22:11)
[2019-03-02] MEDS: ESTRADIOL 2 MG TABLET (NON-FORMULARY) PO SCH (10:23)
[2019-03-02] MEDS: BUDESONIDE/FORMETEROL FUMARATE 80/4.5 mcg INHALER IH SCH ×2 (10:23→22:12)
[2019-03-02] MEDS: SULFAMETHOXAZOLE/TRIMETHOPRIM 800MG/160MG D.S. TABLET PO SCH (10:23)
[2019-03-02] MEDS: PRENATAL VITAMINS W/ FOLIC ACID TABLET (FP) PO SCH (10:23)
[2019-03-02] MEDS: NICOTINE 21 MG/24 HOURS TOPICAL PATCH TD SCH (10:23)
[2019-03-02] MEDS: BICTEGRAV/EMTRICIT/TENOFOV (BIKTARVY) 50-200-25 MG TABLET PO SCH (10:23)
--- NOTE | 2019-03-02 14:53 | PN ---
S CIWA - CIWA Score Nausea/Vomitin-Mild Nausea/No Vomiting Muscle Tremors: 1-None Visible, but [place] Anxiety: 2 Agitation: 2 Paroxysmal Sweats: No Perspiration Orientation: 0-Oriented Tacttile Disturbances: 1-Very Mild Itch/Numbness Auditory Disturbances: 0-None Visual Disturbances: 0-None Headache: 1-Very Mild CIWA-Ar Total Score: 8 BHS Progress Note (SOAP) Subjective: alert,irritable,anxious,interrupted sleep,pain in the body Objective: 03/02/19 14:52 Vital Signs Temperature 97.7 F 03/02/19 09:12 Pulse Rate 107 H 03/02/19 09:12 Respiratory Rate 18 03/02/19 09:12 Blood Pressure 113/81 03/02/19 09:12 O2 Sat by Pulse Oximetry (%) Assessment: 03/02/19 14:52 withdrawal symptom Plan: continue detox,ativan regimen,discharge in am
[2019-03-02] MEDS: QUEtiapine FUMARATE 50 MG TABLET PO SCH (22:11)
[2019-03-02] MEDS: THIAMINE HCL 100 MG TABLET (FP) PO SCH (22:11)
[2019-03-03] MEDS ORDERED: LORazepam 0.5 MG TABLET PO ONE (05:00)
[2019-03-03 09:28] VITALS: BP 124/78; PULSE 102; TEMP 97.6
[2019-03-03] MEDS: ESTRADIOL 2 MG TABLET (NON-FORMULARY) PO SCH (10:32)
[2019-03-03] MEDS: SULFAMETHOXAZOLE/TRIMETHOPRIM 800MG/160MG D.S. TABLET PO SCH (10:32)
[2019-03-03] MEDS: PRENATAL VITAMINS W/ FOLIC ACID TABLET (FP) PO SCH (10:32)
[2019-03-03] MEDS: BICTEGRAV/EMTRICIT/TENOFOV (BIKTARVY) 50-200-25 MG TABLET PO SCH (10:32)
[2019-03-03] MEDS: NICOTINE 21 MG/24 HOURS TOPICAL PATCH TD SCH (10:32)
[2019-03-03] MEDS: BUDESONIDE/FORMETEROL FUMARATE 80/4.5 mcg INHALER IH SCH (10:35)
--- NOTE | 2019-03-03 13:51 | DS ---
[facility] Detox Discharge Summary Admission Date: 02/27/19 Discharge Date: 03/03/19 - History Present History: Alcohol Dependence, Cannabis Dependence, Cocaine Dependence Additional Comments: Pt is medically cleared and is discharged today and is accepted to [facility] for continued management. Pt is alert and oriented x3 and in no respiratory distress. Pertinent Past History: H/O HIV+, asthma, alcohol, and cocaine use disorder. - Physical Exam Results Vital Signs: Vital Signs Temperature 97.6 F 03/03/19 09:27 Pulse Rate 102 H 03/03/19 09:27 Respiratory Rate 18 03/03/19 09:27 Blood Pressure 124/78 03/03/19 09:27 O2 Sat by Pulse Oximetry (%) Vital Signs 03/03/19 03/03/19 06:46 09:27 Temperature 97.9 F 97.6 F Pulse Rate 81 102 H Respiratory 18 18 Rate Blood Pressure 125/76 124/78 Laboratory Last Values WBC 4.2 K/mm3 (4.0-10.0) 02/28/19 08:15 RBC 4.55 M/mm3 (3.60-5.2) 02/28/19 08:15 Hgb 12.6 GM/dL (10.7-15.3) 02/28/19 08:15 Hct 39.0 % (32.4-45.2) 02/28/19 08:15 MCV 85.8 fl (80-96) 02/28/19 08:15 MCH 27.6 pg (25.7-33.7) 02/28/19 08:15 MCHC 32.2 g/dl (32.0-36.0) 02/28/19 08:15 RDW 14.4 % (11.6-15.6) 02/28/19 08:15 Plt Count 270 K/MM3 (134-434) D 02/28/19 08:15 MPV 7.5 fl (7.5-11.1) 02/28/19 08:15 Sodium 140 mmol/L (136-145) 02/28/19 08:15 Potassium 4.1 mmol/L (3.5-5.1) 02/28/19 08:15 Chloride 108 mmol/L (98-107) H 02/28/19 08:15 Carbon Dioxide 26 mmol/L (21-32) 02/28/19 08:15 Anion Gap 7 MMOL/L (8-16) L 02/28/19 08:15 BUN 20.9 mg/dL (7-18) H 02/28/19 08:15 Creatinine 1.2 mg/dL (0.55-1.3) 02/28/19 08:15 Est GFR (CKD-EPI)AfAm 63.65 02/28/19 08:15 Est GFR (CKD-EPI)NonAf 54.92 02/28/19 08:15 Random Glucose 113 mg/dL (74-106) H 02/28/19 08:15 Calcium 8.4 mg/dL (8.5-10.1) L 02/28/19 08:15 Total Bilirubin 0.2 mg/dL (0.2-1) 02/28/19 08:15 AST 29 U/L (15-37) 02/28/19 08:15 ALT 29 U/L (13-61) 02/28/19 08:15 Alkaline Phosphatase 42 U/L (45-117) L 02/28/19 08:15 Total Protein 6.1 g/dl (6.4-8.2) L 02/28/19 08:15 Albumin 2.9 g/dl (3.4-5.0) L 02/28/19 08:15 Urine Color Yellow 03/01/19 15:34 Urine Appearance Clear 03/01/19 15:34 Urine pH 8.0 (5.0-8.0) D 03/01/19 15:34 Ur Specific Burden 1.024 (1.010-1.035) 03/01/19 15:34 Urine Protein Negative (NEGATIVE) 03/01/19 15:34 Urine Glucose (UA) Negative (NEGATIVE) 03/01/19 15:34 Urine Ketones Trace (NEGATIVE) H 03/01/19 15:34 Urine Blood Negative (NEGATIVE) 03/01/19 15:34 Urine Nitrite Negative (NEGATIVE) 03/01/19 15:34 Urine Bilirubin Negative (NEGATIVE) 03/01/19 15:34 Urine Urobilinogen 0.2 mg/dL (0.2-1.0) 03/01/19 15:34 Ur Leukocyte Esterase Negative (NEGATIVE) 03/01/19 15:34 RPR Titer Nonreactive (NONREACTIVE) 02/28/19 08:15 Labs noted. Pertinent Admission Physical Exam Findings: withdrawal symptoms. - Treatment Hospital Course: Detox Protocol Followed, Detoxed Safely, Responded well, Discharged Condition Good, Rehab Referral Accepted - Medication Discharge Medications: Ambulatory Orders Estradiol [Estrace] 6 mg PO DAILY 03/06/12 Ferrous Sulfate [Feosol] 325 mg PO DAILY@0800 #30 ud 08/26/15 Albuterol Sulfate Inhaler - [Ventolin Hfa Inhaler -] 1 puff IH BID 02/27/19 Bictegrav/Emtricit/Tenofov Ala [Biktarvy 50-200-25 mg Tablet] 1 each PO DAILY Fluticasone/Salmeterol [Advair 250-50 Diskus] 2 puff IH DAILY 02/27/19 Quetiapine Fumarate [Seroquel] 50 mg PO HS 02/27/19 Sulfamethoxazole/Trimethoprim [Bactrim DS -] 1 each PO DAILY 02/27/19 - Diagnosis (1) Acquired immune deficiency syndrome (AIDS) Current Visit: No Status: Chronic (2) Alcohol dependence with uncomplicated withdrawal Current Visit: No Status: Chronic (3) Asthma Current Visit: No Status: Chronic Qualifiers: Asthma severity: mild persistent (4) Cannabis dependence Current Visit: No Status: Chronic (5) Cocaine dependence Current Visit: No Status: Chronic (6) HTN (hypertension) Current Visit: No Status: Chronic Qualifiers: Hypertension type: essential hypertension Qualified Code(s): I10 - Essential (primary) hypertension (7) Nicotine dependence Current Visit: No Status: Chronic Qualifiers: Nicotine product type: cigarettes Substance use status: uncomplicated Qualified Code(s): F17.210 - Nicotine dependence, cigarettes, uncomplicated (8) TRANSGENDER PATIENT Current Visit: No Status: Chronic - AMA Did Patient Leave Against Medical Advice: No BHS CIWA - CIWA Score Nausea/Vomitin-No Nausea/No Vomiting Muscle Tremors: None Anxiety: 3 Agitation: 0-Normal Activity Paroxysmal Sweats: 2 Orientation: 0-Oriented Tacttile Disturbances: 0-None Auditory Disturbances: 0-None Visual Disturbances: 0-None Headache: 0-None Present CIWA-Ar Total Score: 5
== END 2019-03-03 12:40 | disposition other institution (70) | DRG 897 ==
LOC: YASAS 16:18 → Y3N 22:18
PROVIDERS: ADMIT Allergy & Immunology; ATTEND Allergy & Immunology
PROC: HZ2ZZZZ Detoxification Services for Substance Abuse Treatment (ICD-10-PCS; principal; 2019-02-27)
DX: F10.230 Alcohol dependence with withdrawal, uncomplicated (principal); F14.20 Cocaine dependence, uncomplicated; B20 Human immunodeficiency virus [HIV] disease; F11.10 Opioid abuse, uncomplicated; F12.20 Cannabis dependence, uncomplicated; F17.210 Nicotine dependence, cigarettes, uncomplicated; F31.9 Bipolar disorder, unspecified; F64.0 Transsexualism; I10 Essential (primary) hypertension; J45.20 Mild intermittent asthma, uncomplicated; D64.9 Anemia, unspecified; Z91.5 Personal history of self-harm
CPT/HCPCS: 36415; 80053; 81003; 85027; 86593

== ENCOUNTER 2019-03-03 12:05 | Inpatient (IN) | payer OTHER ==
[2019-03-03] MEDS ORDERED: guaiFENesin 200 MG/10 ML 10 ML UNIT-DOSE CUPS PO PRN (14:00)
[2019-03-03] MEDS ORDERED: ACETAMINOPHEN 325 MG TABLET (FP) PO PRN (14:00)
[2019-03-03] MEDS ORDERED: MAGNESIUM HYDROX 2400MG/30ML ORAL SUSPENSION 30 ML CUP PO PRN (14:00)
[2019-03-03] MEDS ORDERED: P-EPHED 60MG/TRIPROLIDI 2.5MG TABLET PO PRN (14:00)
[2019-03-03] MEDS ORDERED: MENTHOL/PHENOL 1 EACH UD MM PRN (14:00)
[2019-03-03] MEDS ORDERED: IBUPROFEN 400 MG TABLET (FP) PO PRN (14:00)
[2019-03-03] MEDS ORDERED: LOPERAMIDE HCL 2 MG CAPSULE PO PRN (14:00)
--- NOTE | 2019-03-03 14:00 | HP ---
[facility] Rehab Assess/Revision - Admission History Admitted to Rehab from: [facility] Date of Admission to Rehab: 03/03/2019 - Vital signs Vital Signs: Vital Signs Period Temp Pulse Resp BP Sys/Keys Pulse Ox Last 24 Hr 98.1 F 108 18 122/86 - Findings Detox History & Physical reviewed: Yes Concur with findings: Yes Inpatient Rehab Admission - Rehab Decision to Admit Inpatient rehab admission?: Yes - Initial Determination Are CD services needed?: Yes Free of communicable disease: Yes Not in need of hospitalization: Yes - Rehab Admission Criteria Previous failed treatment: Yes Poor recovery environment: Yes Comorbidities: Yes Lacks judgement: No Patient is meeting Inpatient Rehab admission criteria:: Yes
[2019-03-03] MEDS ORDERED: ALBUTEROL SO4 8 GM HFA INHALER IH PRN (14:05)
[2019-03-03] MEDS ORDERED: PT OWN MED DRAWER 7, Y5N ONE (17:16)
[2019-03-03] MEDS: THIAMINE HCL 100 MG TABLET (FP) PO SCH (21:40)
[2019-03-03] MEDS: MELATONIN 5 MG TABLETS PO PRN (21:40)
[2019-03-03] MEDS: BUDESONIDE/FORMETEROL FUMARATE 160/4.5 mcg INHALER IH SCH (21:42)
[2019-03-03] MEDS ORDERED: BUDESONIDE/FORMETEROL FUMARATE 160/4.5 mcg INHALER IH SCH (22:00)
[2019-03-04] MEDS: SULFAMETHOXAZOLE/TRIMETHOPRIM 800MG/160MG D.S. TABLET PO SCH (09:48)
[2019-03-04] MEDS: PRENATAL VITAMINS W/ FOLIC ACID TABLET (FP) PO SCH (09:48)
[2019-03-04] MEDS: BICTEGRAV/EMTRICIT/TENOFOV (BIKTARVY) 50-200-25 MG TABLET PO SCH (09:49)
[2019-03-04] MEDS: ESTRADIOL 2 MG TABLET (NON-FORMULARY) PO SCH (09:49)
[2019-03-04] MEDS ORDERED: FLUTICASONE/SALMETEROL 100 MCG/50 MCG DISKUS IH SCH (10:00)
[2019-03-04] MEDS ORDERED: PATIENT'S OWN MEDICATION (NON-FORMULARY) (Bictegrav/Emtricit/Tenofov Ala 1 EACH) PO SCH (10:00)
[2019-03-04] MEDS ORDERED: ESTRADIOL 2 MG TABLET (NON-FORMULARY) PO SCH (10:00)
[2019-03-04] MEDS: hydrOXYzine PAMOATE 25 MG CAPSULE (FP) PO PRN ×2 (10:49→21:34)
[2019-03-04] MEDS: BUDESONIDE/FORMETEROL FUMARATE 160/4.5 mcg INHALER IH SCH (11:45)
[2019-03-04] MEDS: NICOTINE 21 MG/24 HOURS TOPICAL PATCH TD SCH (11:45)
[2019-03-04] MEDS: BUDESONIDE/FORMETEROL FUMARATE 80/4.5 mcg INHALER IH SCH ×2 (11:45→21:33)
[2019-03-04] MEDS: NICOTINE POLACRILEX 2 MG GUM BUC PRN (12:06)
[2019-03-04] MEDS: THIAMINE HCL 100 MG TABLET (FP) PO SCH (21:33)
[2019-03-04] MEDS: MELATONIN 5 MG TABLETS PO PRN (21:34)
[2019-03-05] MEDS ORDERED: PT OWN MED DRAWER 7, Y5N ONE ×2 (08:23→21:07)
[2019-03-05] MEDS: NICOTINE 21 MG/24 HOURS TOPICAL PATCH TD SCH (09:53)
[2019-03-05] MEDS: SULFAMETHOXAZOLE/TRIMETHOPRIM 800MG/160MG D.S. TABLET PO SCH (09:54)
[2019-03-05] MEDS: PRENATAL VITAMINS W/ FOLIC ACID TABLET (FP) PO SCH (09:54)
[2019-03-05] MEDS: BUDESONIDE/FORMETEROL FUMARATE 80/4.5 mcg INHALER IH SCH ×2 (09:54→21:07)
[2019-03-05] MEDS: BICTEGRAV/EMTRICIT/TENOFOV (BIKTARVY) 50-200-25 MG TABLET PO SCH (09:55)
[2019-03-05] MEDS: ESTRADIOL 2 MG TABLET (NON-FORMULARY) PO SCH (09:55)
--- NOTE | 2019-03-05 13:02 | CONSULT ---
[facility] Psychiatric Consult - Data Date of interview: 03/05/19 Admission source: [facility] Identifying data: Revisit to [facility] and admission to [address] for this 41 y/o transgender (male to female) for rehabilitative care (completed detoxification at [address] [place] [address]) to address CAMILLA issues (alcohol, cannabis, cocaine ( crack), nicotine) co-morbid with mood disorder + insomnia. Patient is single without children, domiciled ([place] setting), unemployed and supported on SSI benefits/HASA funds. Substance Abuse History: Discussed with patient. Details in current [facility] report as follows : Smoking history: Current every day smoker. Have you smoked in the past 12 months: Yes. Aproximately how many cigarettes per day: 20. Hx Chewing Tobacco Use: No. Initiated information on smoking cessation: Yes. 'Breaking Loose' booklet given: 02/27/19. Substances abused. Alcohol. Substance route: Oral. Frequency: Daily. Amount used: 2 six packs 12 oz cans. Age of first use: 12. Date of last use: 02/27/19. Heroin. Substance route: Smoking. Frequency: 3-6 times per week. Amount used: 1bag. Age of first use: 40. Date of last use: 02/24/19. Crack. Substance route: Smoking. Frequency: Daily. Amount used: $100/day. Age of first use: 23. Date of last use: 02/26/19 Medical History: Medical profile is remarkable for anemia, HIV infection [id number] (on HAART medications), bronchial asthma and distant antecedent of seizures (drug-related). Psychiatric History: Patient presents with a history of multiple psychiatric hospitalizations since childhood. Onset of psychiatric problems : age 12 (first suicide attempt - via overdose with antihypertensive medications + tylenol belonging to her grand-mother - which led to first psychiatric hospitalization at [facility]). Patient has been treated at several institutions : [facility], [facility], [facility], [facility]. Diagnosed with Bipolar Disorder. Ms Temple reports chronic non- adherence to OPD care. Lost to follow-up. She has been off psychotropic medications for several months (used to be on valproate, quetiapine, paroxetine , olanzapine). No recent history of suicide attempts. Physical/Sexual Abuse/Trauma History: Not discussed in this interview. Patient declines. Additional Comment: Urine drug screen results: THC-Marijuana, YANNICK-Cocaine. Noted. Mental Status Exam - Mental Status Exam Alert and Oriented to: Time, Place, Person Cognitive Function: Good Patient Appearance: Disheveled (thin habitus) Mood: Hopeful, Euthymic Affect: Appropriate, Normal Range Patient Behavior: Appropriate, Cooperative Speech Pattern: Clear Voice Loudness: Normal Thought Process: Intact, Goal Oriented Thought Disorder: Not Present Hallucinations: Denies Suicidal Ideation: Denies Homicidal Ideation: Denies Insight/Judgement: Fair Sleep: Poorly, Difficulty falling asleep Appetite: Good Gait/Station: Normal
[2019-03-05] MEDS: MINERAL OIL/PETROLAT/WATER TOPICAL CREAM 113 GM JAR TP SCH ×2 (14:47→21:05)
[2019-03-05] MEDS: COLLOIDAL OATMEAL 1 BAR EACH TP PRN (15:46)
[2019-03-05] MEDS: MELATONIN 5 MG TABLETS PO PRN (21:05)
[2019-03-05] MEDS: THIAMINE HCL 100 MG TABLET (FP) PO SCH (21:05)
[2019-03-05] MEDS: hydrOXYzine PAMOATE 25 MG CAPSULE (FP) PO PRN (21:07)
[2019-03-05] MEDS: MAG HYDROX/AL HYDROX/SIMETH 30 ML UNIT-DOSE CUP PO PRN (22:09)
[2019-03-06] MEDS: NICOTINE 21 MG/24 HOURS TOPICAL PATCH TD SCH (10:05)
[2019-03-06] MEDS: BICTEGRAV/EMTRICIT/TENOFOV (BIKTARVY) 50-200-25 MG TABLET PO SCH (10:06)
[2019-03-06] MEDS: SULFAMETHOXAZOLE/TRIMETHOPRIM 800MG/160MG D.S. TABLET PO SCH (10:06)
[2019-03-06] MEDS: PRENATAL VITAMINS W/ FOLIC ACID TABLET (FP) PO SCH (10:06)
[2019-03-06] MEDS: BUDESONIDE/FORMETEROL FUMARATE 80/4.5 mcg INHALER IH SCH ×2 (10:06→21:43)
[2019-03-06] MEDS: MINERAL OIL/PETROLAT/WATER TOPICAL CREAM 113 GM JAR TP SCH ×2 (10:07→21:43)
[2019-03-06] MEDS: ESTRADIOL 2 MG TABLET (NON-FORMULARY) PO SCH ×2 (10:07→13:09)
[2019-03-06] MEDS: NICOTINE POLACRILEX 2 MG GUM BUC PRN (10:08)
[2019-03-06] MEDS ORDERED: PT OWN MED DRAWER 7, Y5N ONE ×2 (11:16→16:24)
[2019-03-06] MEDS: THIAMINE HCL 100 MG TABLET (FP) PO SCH (21:44)
[2019-03-07] MEDS ORDERED: PT OWN MED DRAWER 7, Y5N ONE ×3 (08:55→13:43)
[2019-03-07] MEDS: BUDESONIDE/FORMETEROL FUMARATE 80/4.5 mcg INHALER IH SCH ×2 (10:35→21:06)
[2019-03-07] MEDS: MINERAL OIL/PETROLAT/WATER TOPICAL CREAM 113 GM JAR TP SCH ×2 (10:35→22:23)
[2019-03-07] MEDS: PRENATAL VITAMINS W/ FOLIC ACID TABLET (FP) PO SCH (10:35)
[2019-03-07] MEDS: SULFAMETHOXAZOLE/TRIMETHOPRIM 800MG/160MG D.S. TABLET PO SCH (10:35)
[2019-03-07] MEDS: NICOTINE 21 MG/24 HOURS TOPICAL PATCH TD SCH (10:35)
[2019-03-07] MEDS: BICTEGRAV/EMTRICIT/TENOFOV (BIKTARVY) 50-200-25 MG TABLET PO SCH (10:35)
[2019-03-07] MEDS: NICOTINE POLACRILEX 2 MG GUM BUC PRN (10:36)
[2019-03-07] MEDS: ESTRADIOL 2 MG TABLET (NON-FORMULARY) PO SCH (13:43)
[2019-03-07] MEDS: THIAMINE HCL 100 MG TABLET (FP) PO SCH (21:09)
[2019-03-07] MEDS: MELATONIN 5 MG TABLETS PO PRN (21:09)
[2019-03-07] MEDS: hydrOXYzine PAMOATE 50 MG CAPSULE (FP) PO PRN (21:11)
[2019-03-08] MEDS ORDERED: PT OWN MED DRAWER 7, Y5N ONE (08:05)
[2019-03-08] MEDS: MINERAL OIL/PETROLAT/WATER TOPICAL CREAM 113 GM JAR TP SCH ×2 (10:06→21:49)
[2019-03-08] MEDS: BICTEGRAV/EMTRICIT/TENOFOV (BIKTARVY) 50-200-25 MG TABLET PO SCH (10:06)
[2019-03-08] MEDS: SULFAMETHOXAZOLE/TRIMETHOPRIM 800MG/160MG D.S. TABLET PO SCH (10:06)
[2019-03-08] MEDS: NICOTINE 21 MG/24 HOURS TOPICAL PATCH TD SCH (10:07)
[2019-03-08] MEDS: PRENATAL VITAMINS W/ FOLIC ACID TABLET (FP) PO SCH (10:07)
[2019-03-08] MEDS: BUDESONIDE/FORMETEROL FUMARATE 80/4.5 mcg INHALER IH SCH ×2 (10:08→21:41)
[2019-03-08] MEDS: ESTRADIOL 2 MG TABLET (NON-FORMULARY) PO SCH (13:02)
[2019-03-08] MEDS: THIAMINE HCL 100 MG TABLET (FP) PO SCH (21:40)
[2019-03-08] MEDS: hydrOXYzine PAMOATE 50 MG CAPSULE (FP) PO PRN (21:41)
[2019-03-09] MEDS ORDERED: PT OWN MED DRAWER 7, Y5N ONE ×3 (09:06→20:41)
[2019-03-09] MEDS: MINERAL OIL/PETROLAT/WATER TOPICAL CREAM 113 GM JAR TP SCH ×2 (09:08→09:32)
[2019-03-09] MEDS: NICOTINE 21 MG/24 HOURS TOPICAL PATCH TD SCH (09:31)
[2019-03-09] MEDS: BUDESONIDE/FORMETEROL FUMARATE 80/4.5 mcg INHALER IH SCH ×2 (09:31→21:06)
[2019-03-09] MEDS: PRENATAL VITAMINS W/ FOLIC ACID TABLET (FP) PO SCH (09:32)
[2019-03-09] MEDS: BICTEGRAV/EMTRICIT/TENOFOV (BIKTARVY) 50-200-25 MG TABLET PO SCH (09:32)
[2019-03-09] MEDS: SULFAMETHOXAZOLE/TRIMETHOPRIM 800MG/160MG D.S. TABLET PO SCH (09:32)
--- NOTE | 2019-03-09 13:21 | PN ---
S Progress Note (SOAP) Subjective: Patient c/o gas and difficulty passing stool. states colace does not work for her. Objective: General: no apparent distress HEENTM:normocephalic Neck: supple ABD: soft, non-tender, +BS 03/09/19 13:19 Assessment: constipation, flatus 03/09/19 13:20 Plan: Started on senna and Gas-x. Instructed patient that she should ask for these medications.
[2019-03-09] MEDS: SIMETHICONE 80 MG TAB.CHEW (FP) PO PRN ×2 (14:28→21:07)
[2019-03-09] MEDS: ESTRADIOL 2 MG TABLET (NON-FORMULARY) PO SCH (14:28)
[2019-03-09] MEDS: THIAMINE HCL 100 MG TABLET (FP) PO SCH (21:06)
[2019-03-09] MEDS: SENNOSIDES 8.6MG TABLET (FP) PO PRN (21:07)
[2019-03-09] MEDS: MELATONIN 5 MG TABLETS PO PRN (21:08)
[2019-03-10] MEDS: SIMETHICONE 80 MG TAB.CHEW (FP) PO PRN ×2 (05:00→11:52)
[2019-03-10] MEDS ORDERED: PT OWN MED DRAWER 7, Y5N ONE (08:33)
[2019-03-10] MEDS: NICOTINE 21 MG/24 HOURS TOPICAL PATCH TD SCH (09:36)
[2019-03-10] MEDS: BUDESONIDE/FORMETEROL FUMARATE 80/4.5 mcg INHALER IH SCH ×2 (09:37→20:59)
[2019-03-10] MEDS: PRENATAL VITAMINS W/ FOLIC ACID TABLET (FP) PO SCH (09:37)
[2019-03-10] MEDS: MINERAL OIL/PETROLAT/WATER TOPICAL CREAM 113 GM JAR TP SCH ×2 (09:37→20:59)
[2019-03-10] MEDS: SULFAMETHOXAZOLE/TRIMETHOPRIM 800MG/160MG D.S. TABLET PO SCH (09:37)
[2019-03-10] MEDS: BICTEGRAV/EMTRICIT/TENOFOV (BIKTARVY) 50-200-25 MG TABLET PO SCH (09:37)
[2019-03-10] MEDS: ESTRADIOL 2 MG TABLET (NON-FORMULARY) PO SCH (13:57)
[2019-03-10] MEDS: MELATONIN 5 MG TABLETS PO PRN (20:59)
[2019-03-10] MEDS: SENNOSIDES 8.6MG TABLET (FP) PO PRN (20:59)
[2019-03-10] MEDS: THIAMINE HCL 100 MG TABLET (FP) PO SCH (20:59)
[2019-03-10] MEDS: hydrOXYzine PAMOATE 50 MG CAPSULE (FP) PO PRN (20:59)
[2019-03-11] MEDS ORDERED: PT OWN MED DRAWER 7, Y5N ONE ×2 (08:26→19:56)
[2019-03-11] MEDS: NICOTINE 21 MG/24 HOURS TOPICAL PATCH TD SCH (09:39)
[2019-03-11] MEDS: SULFAMETHOXAZOLE/TRIMETHOPRIM 800MG/160MG D.S. TABLET PO SCH (09:40)
[2019-03-11] MEDS: BUDESONIDE/FORMETEROL FUMARATE 80/4.5 mcg INHALER IH SCH ×2 (09:40→21:06)
[2019-03-11] MEDS: PRENATAL VITAMINS W/ FOLIC ACID TABLET (FP) PO SCH (09:40)
[2019-03-11] MEDS: SIMETHICONE 80 MG TAB.CHEW (FP) PO PRN (09:42)
[2019-03-11] MEDS: BICTEGRAV/EMTRICIT/TENOFOV (BIKTARVY) 50-200-25 MG TABLET PO SCH (09:43)
[2019-03-11] MEDS: MINERAL OIL/PETROLAT/WATER TOPICAL CREAM 113 GM JAR TP SCH ×2 (09:43→21:06)
[2019-03-11] MEDS: NICOTINE POLACRILEX 2 MG GUM BUC PRN (09:43)
[2019-03-11] MEDS: ESTRADIOL 2 MG TABLET (NON-FORMULARY) PO SCH (13:43)
[2019-03-11] MEDS: MAGNESIUM CITRATE 300 ML BOTTLE PO PRN (13:45)
[2019-03-11] MEDS: THIAMINE HCL 100 MG TABLET (FP) PO SCH (21:06)
[2019-03-11] MEDS: MELATONIN 5 MG TABLETS PO PRN (21:08)
[2019-03-11] MEDS: SENNOSIDES 8.6MG TABLET (FP) PO PRN (21:08)
[2019-03-11] MEDS: hydrOXYzine PAMOATE 50 MG CAPSULE (FP) PO PRN (21:09)
[2019-03-12] MEDS ORDERED: PT OWN MED DRAWER 7, Y5N ONE (08:58)
[2019-03-12] MEDS: NICOTINE 21 MG/24 HOURS TOPICAL PATCH TD SCH (10:19)
[2019-03-12] MEDS: PRENATAL VITAMINS W/ FOLIC ACID TABLET (FP) PO SCH (10:19)
[2019-03-12] MEDS: BICTEGRAV/EMTRICIT/TENOFOV (BIKTARVY) 50-200-25 MG TABLET PO SCH (10:19)
[2019-03-12] MEDS: SULFAMETHOXAZOLE/TRIMETHOPRIM 800MG/160MG D.S. TABLET PO SCH (10:19)
[2019-03-12] MEDS: BUDESONIDE/FORMETEROL FUMARATE 80/4.5 mcg INHALER IH SCH ×2 (10:19→21:44)
[2019-03-12] MEDS: MINERAL OIL/PETROLAT/WATER TOPICAL CREAM 113 GM JAR TP SCH ×2 (10:20→21:44)
[2019-03-12] MEDS: ESTRADIOL 2 MG TABLET (NON-FORMULARY) PO SCH (13:56)
[2019-03-12] MEDS: THIAMINE HCL 100 MG TABLET (FP) PO SCH (21:43)
[2019-03-12] MEDS: MELATONIN 5 MG TABLETS PO PRN (21:45)
[2019-03-12] MEDS: hydrOXYzine PAMOATE 50 MG CAPSULE (FP) PO PRN (21:45)
[2019-03-12] MEDS: SIMETHICONE 80 MG TAB.CHEW (FP) PO PRN (21:45)
[2019-03-13] MEDS ORDERED: PT OWN MED DRAWER 7, Y5N ONE ×5 (08:13→21:08)
[2019-03-13] MEDS: SULFAMETHOXAZOLE/TRIMETHOPRIM 800MG/160MG D.S. TABLET PO SCH (09:49)
[2019-03-13] MEDS: BICTEGRAV/EMTRICIT/TENOFOV (BIKTARVY) 50-200-25 MG TABLET PO SCH (09:49)
[2019-03-13] MEDS: PRENATAL VITAMINS W/ FOLIC ACID TABLET (FP) PO SCH (09:49)
[2019-03-13] MEDS: BUDESONIDE/FORMETEROL FUMARATE 80/4.5 mcg INHALER IH SCH ×2 (09:50→21:38)
[2019-03-13] MEDS: MINERAL OIL/PETROLAT/WATER TOPICAL CREAM 113 GM JAR TP SCH ×2 (09:50→21:39)
[2019-03-13] MEDS: NICOTINE 21 MG/24 HOURS TOPICAL PATCH TD SCH (09:50)
[2019-03-13] MEDS: SIMETHICONE 80 MG TAB.CHEW (FP) PO PRN ×2 (09:52→13:59)
[2019-03-13] MEDS: ESTRADIOL 2 MG TABLET (NON-FORMULARY) PO SCH (13:58)
[2019-03-13] MEDS: THIAMINE HCL 100 MG TABLET (FP) PO SCH (21:38)
[2019-03-13] MEDS: MELATONIN 5 MG TABLETS PO PRN (21:39)
[2019-03-13] MEDS: hydrOXYzine PAMOATE 50 MG CAPSULE (FP) PO PRN (21:39)
[2019-03-14] MEDS: BUDESONIDE/FORMETEROL FUMARATE 80/4.5 mcg INHALER IH SCH ×2 (09:49→21:40)
[2019-03-14] MEDS: SULFAMETHOXAZOLE/TRIMETHOPRIM 800MG/160MG D.S. TABLET PO SCH (09:50)
[2019-03-14] MEDS: BICTEGRAV/EMTRICIT/TENOFOV (BIKTARVY) 50-200-25 MG TABLET PO SCH (09:50)
[2019-03-14] MEDS: MINERAL OIL/PETROLAT/WATER TOPICAL CREAM 113 GM JAR TP SCH ×2 (09:50→21:39)
[2019-03-14] MEDS: PRENATAL VITAMINS W/ FOLIC ACID TABLET (FP) PO SCH (09:50)
[2019-03-14] MEDS: SIMETHICONE 80 MG TAB.CHEW (FP) PO PRN (09:50)
[2019-03-14] MEDS: NICOTINE 21 MG/24 HOURS TOPICAL PATCH TD SCH (09:51)
[2019-03-14] MEDS: NICOTINE POLACRILEX 2 MG GUM BUC PRN (09:51)
[2019-03-14] MEDS ORDERED: PT OWN MED DRAWER 7, Y5N ONE (12:56)
[2019-03-14] MEDS: ESTRADIOL 2 MG TABLET (NON-FORMULARY) PO SCH (13:11)
--- NOTE | 2019-03-14 17:40 | PN ---
Psychiatric Progress Note Vital Signs: Vital Signs Period Temp Pulse Resp BP Sys/Keys Pulse Ox Last 24 Hr 97.8 F 83 18-18 115/75 Date of Session: 03/14/19 Chief Complaint:: " I cannot sleep at night ". HPI: Psychiatric re-consult is sought to address insomnia. Hospital course is otherwise unremarkable. ROS: No issues. Current Medications: Active Medications Generic Name Dose Route Start Last Admin Trade Name Freq PRN Reason Stop Dose Admin Acetaminophen 650 mg 03/03/19 14:00 Tylenol - PO Q6H PRN FEVER Al Hydroxide/Mg Hydroxide 30 ml 03/03/19 14:00 03/05/19 22:09 Mylanta Oral Suspension - PO 30 ml Q6H PRN Administration DYSPEPSIA Albuterol Sulfate 2 puff 03/03/19 14:05 Ventolin Hfa Inhaler - IH Q6H PRN SHORT OF BREATH/WHEEZING Bictegravir/Emtricitabine/Tenofovir 1 each 03/04/19 10:00 03/14/19 09:50 Biktarvy 50-200-25 Mg Tablet PO 1 each DAILY OLVIN Administration Budesonide/Formoterol Fumarate 2 puff 03/04/19 11:00 03/14/19 09:49 Symbicort 80/4.5mcg - IH 2 puff BID OLVIN Administration Colloidal Oatmeal 1 applic 03/05/19 13:55 03/05/19 15:46 Aveeno Soap - TP 1 bar DAILY PRN Administration HYGEINE Estradiol 6 mg 03/06/19 14:00 03/14/19 13:11 Estradiol (Non-Formulary) PO 6 mg DAILY@1400 OLVIN Administration Eucalyptus/Menthol/Phenol/Sorbitol 1 each 03/03/19 14:00 Cepastat Lozenge - MM Q4H PRN SORE THROAT Guaifenesin 10 ml 03/03/19 14:00 Robitussin - PO Q6H PRN COUGH Hydroxyzine Pamoate 50 mg 03/06/19 08:07 03/13/19 21:39 Vistaril - PO 50 mg Q6H PRN Administration ANXIETY Ibuprofen 400 mg 03/03/19 14:00 03/10/19 05:00 Motrin - PO 400 mg Q6H PRN Administration Pain Level 4-6 Loperamide HCl 4 mg 03/03/19 14:00 Imodium - PO Q6H PRN DIARRHEA Magnesium Citrate 300 ml 03/03/19 14:00 03/11/19 13:45 Citroma - PO 300 ml Q48H PRN Administration CONSTIPATION Magnesium Hydroxide 30 ml 03/03/19 14:00 03/07/19 14:07 Milk Of Magnesia - PO 30 ml DAILY PRN Administration CONSTIPATION Melatonin 10 mg 03/12/19 14:38 03/13/19 21:39 Melatonin PO 10 mg HS PRN Administration INSOMNIA Multi-Ingredient Lotion 1 applic 03/05/19 14:00 03/14/19 09:50 Eucerin (Small Jar) - TP Not Given BID OLVIN Nicotine 21 mg 03/04/19 11:00 03/14/19 09:51 Nicoderm Patch - TD 21 mg DAILY OLVIN Administration Nicotine Polacrilex 2 mg 03/04/19 10:48 03/14/19 09:51 Nicorette Gum - BUC 2 mg Q2H PRN Administration NICOTINE REPLACEMENT RX Multivit/Folic Acid/Iron 1 tab 03/04/19 10:00 03/14/19 09:50 Vitamins (Sjr) - PO 1 tab DAILY OLVIN Administration Pseudoephedrine/Triprolidine 1 combo 03/03/19 14:00 Actifed - PO TID PRN NASAL CONGESTION Senna 2 tab 03/07/19 14:54 03/11/19 21:08 Senna - PO 2 tab HS PRN Administration CONSTIPATION Simethicone 80 mg 03/07/19 14:54 03/14/19 09:50 Mylicon - PO 80 mg QID PRN Administration GAS Suvorexant 10 mg 03/14/19 22:00 Belsomra PO HS PRN INSOMNIA Thiamine HCl 100 mg 03/03/19 22:00 03/13/19 21:38 Vitamin B1 - PO 100 mg HS OLVIN Administration Trimethoprim/Sulfamethoxazole 1 each 03/04/19 10:00 03/14/19 09:50 Bactrim Ds - PO 1 each DAILY OLVIN Administration Medication(s) Change(s): Suvorexant 10 mg po hs prn is added to the regimen with patient's informed consent. Current Side Effect: No Lab tests ordered: No Lab tests reviewed: Yes Provider note:: Chart reviewed. Met with the patient (in the presence of female nursing home director, Isaac Tolliver). She is already known to this magazine writer (see my note from [address] [place] [address] for details). Doing well. Patient is complaining of difficulty staying asleep. Principles of sleep hygiene are discussed. Side effects/benefits of belsomra revisited with patient. Verbal consent granted to MD. Mental status assessed. Stable. See MSE report. Total face to face time:: 25 Mental Status Exam - Mental Status Exam Alert and Oriented to: Time, Place, Person Cognitive Function: Good Patient Appearance: Well Groomed Mood: Hopeful, Euthymic Affect: Appropriate, Mood Congruent, Normal Range Patient Behavior: Appropriate, Cooperative Speech Pattern: Clear Voice Loudness: Normal Thought Process: Intact, Goal Oriented Thought Disorder: Not Present Hallucinations: Denies Suicidal Ideation: Denies Homicidal Ideation: Denies Insight/Judgement: Fair Sleep: Poorly, Difficulty falling asleep Appetite: Good Gait/Station: Normal Psychiatric Treatment Plan - Problem List (1) Insomnia Current Visit: Yes Comment: .
[2019-03-14] MEDS: THIAMINE HCL 100 MG TABLET (FP) PO SCH (21:36)
[2019-03-14] MEDS: MELATONIN 5 MG TABLETS PO PRN (21:37)
[2019-03-14] MEDS: hydrOXYzine PAMOATE 50 MG CAPSULE (FP) PO PRN (21:37)
[2019-03-14] MEDS: SUVOREXANT 10 MG TABLET PO PRN (21:38)
[2019-03-15] MEDS ORDERED: PT OWN MED DRAWER 7, Y5N ONE ×3 (08:38→21:34)
[2019-03-15] MEDS: SULFAMETHOXAZOLE/TRIMETHOPRIM 800MG/160MG D.S. TABLET PO SCH (09:50)
[2019-03-15] MEDS: NICOTINE 21 MG/24 HOURS TOPICAL PATCH TD SCH (09:50)
[2019-03-15] MEDS: BICTEGRAV/EMTRICIT/TENOFOV (BIKTARVY) 50-200-25 MG TABLET PO SCH (09:50)
[2019-03-15] MEDS: BUDESONIDE/FORMETEROL FUMARATE 80/4.5 mcg INHALER IH SCH ×2 (09:50→21:38)
[2019-03-15] MEDS: PRENATAL VITAMINS W/ FOLIC ACID TABLET (FP) PO SCH (09:50)
[2019-03-15] MEDS: MINERAL OIL/PETROLAT/WATER TOPICAL CREAM 113 GM JAR TP SCH ×2 (09:51→21:37)
[2019-03-15] MEDS: SIMETHICONE 80 MG TAB.CHEW (FP) PO PRN (09:53)
[2019-03-15] MEDS: ESTRADIOL 2 MG TABLET (NON-FORMULARY) PO SCH (14:09)
[2019-03-15] MEDS: THIAMINE HCL 100 MG TABLET (FP) PO SCH (21:36)
[2019-03-15] MEDS: SUVOREXANT 10 MG TABLET PO PRN (21:36)
[2019-03-16] MEDS ORDERED: PT OWN MED DRAWER 7, Y5N ONE ×2 (08:11→20:41)
[2019-03-16] MEDS: BUDESONIDE/FORMETEROL FUMARATE 80/4.5 mcg INHALER IH SCH ×2 (09:52→21:54)
[2019-03-16] MEDS: NICOTINE 21 MG/24 HOURS TOPICAL PATCH TD SCH (09:52)
[2019-03-16] MEDS: PRENATAL VITAMINS W/ FOLIC ACID TABLET (FP) PO SCH (09:53)
[2019-03-16] MEDS: SULFAMETHOXAZOLE/TRIMETHOPRIM 800MG/160MG D.S. TABLET PO SCH (09:53)
[2019-03-16] MEDS: BICTEGRAV/EMTRICIT/TENOFOV (BIKTARVY) 50-200-25 MG TABLET PO SCH (09:53)
[2019-03-16] MEDS: MINERAL OIL/PETROLAT/WATER TOPICAL CREAM 113 GM JAR TP SCH ×2 (09:54→22:08)
--- NOTE | 2019-03-16 11:10 | PN ---
Psychiatric Progress Note Vital Signs: Vital Signs Period Temp Pulse Resp BP Sys/Keys Pulse Ox Last 24 Hr 98.0 F 76 18-18 117/82 Date of Session: 03/16/19 Chief Complaint:: " I'm having trouble sleeping and anxiety." HPI: Patient admitted to [facility] for alcohol, cannabis, cocaine (crack), and nicotine dependence co-morbid mood disorder + insomnia. Consultation ordered to address anxiety and insomnia. ROS: Patient is coherent, alert + oriented X3. Current Medications: Active Medications Generic Name Dose Route Start Last Admin Trade Name Freq PRN Reason Stop Dose Admin Acetaminophen 650 mg 03/03/19 14:00 Tylenol - PO Q6H PRN FEVER Al Hydroxide/Mg Hydroxide 30 ml 03/03/19 14:00 03/05/19 22:09 Mylanta Oral Suspension - PO 30 ml Q6H PRN Administration DYSPEPSIA Albuterol Sulfate 2 puff 03/03/19 14:05 Ventolin Hfa Inhaler - IH Q6H PRN SHORT OF BREATH/WHEEZING Bictegravir/Emtricitabine/Tenofovir 1 each 03/04/19 10:00 03/16/19 09:53 Biktarvy 50-200-25 Mg Tablet PO 1 each DAILY OLVIN Administration Budesonide/Formoterol Fumarate 2 puff 03/04/19 11:00 03/16/19 09:52 Symbicort 80/4.5mcg - IH 2 puff BID OLVIN Administration Colloidal Oatmeal 1 applic 03/05/19 13:55 03/05/19 15:46 Aveeno Soap - TP 1 bar DAILY PRN Administration HYGEINE Estradiol 6 mg 03/06/19 14:00 03/15/19 14:09 Estradiol (Non-Formulary) PO 6 mg DAILY@1400 OLVIN Administration Eucalyptus/Menthol/Phenol/Sorbitol 1 each 03/03/19 14:00 Cepastat Lozenge - MM Q4H PRN SORE THROAT Guaifenesin 10 ml 03/03/19 14:00 Robitussin - PO Q6H PRN COUGH Hydroxyzine Pamoate 50 mg 03/06/19 08:07 03/14/19 21:37 Vistaril - PO 50 mg Q6H PRN Administration ANXIETY Ibuprofen 400 mg 03/03/19 14:00 03/10/19 05:00 Motrin - PO 400 mg Q6H PRN Administration Pain Level 4-6 Loperamide HCl 4 mg 03/03/19 14:00 Imodium - PO Q6H PRN DIARRHEA Magnesium Citrate 300 ml 03/03/19 14:00 03/11/19 13:45 Citroma - PO 300 ml Q48H PRN Administration CONSTIPATION Magnesium Hydroxide 30 ml 03/03/19 14:00 03/07/19 14:07 Milk Of Magnesia - PO 30 ml DAILY PRN Administration CONSTIPATION Melatonin 10 mg 03/12/19 14:38 03/14/19 21:37 Melatonin PO 10 mg HS PRN Administration INSOMNIA Multi-Ingredient Lotion 1 applic 03/05/19 14:00 03/16/19 09:54 Eucerin (Small Jar) - TP Not Given BID OLVIN Nicotine 21 mg 03/04/19 11:00 03/16/19 09:52 Nicoderm Patch - TD 21 mg DAILY OLVIN Administration Nicotine Polacrilex 2 mg 03/04/19 10:48 03/14/19 09:51 Nicorette Gum - BUC 2 mg Q2H PRN Administration NICOTINE REPLACEMENT RX Multivit/Folic Acid/Iron 1 tab 03/04/19 10:00 03/16/19 09:53 Vitamins (Sjr) - PO 1 tab DAILY OLVIN Administration Pseudoephedrine/Triprolidine 1 combo 03/03/19 14:00 Actifed - PO TID PRN NASAL CONGESTION Senna 2 tab 03/07/19 14:54 03/11/19 21:08 Senna - PO 2 tab HS PRN Administration CONSTIPATION Simethicone 80 mg 03/07/19 14:54 03/15/19 09:53 Mylicon - PO 80 mg QID PRN Administration GAS Suvorexant 10 mg 03/14/19 22:00 03/15/19 21:36 Belsomra PO 10 mg HS PRN Administration INSOMNIA Thiamine HCl 100 mg 03/03/19 22:00 03/15/19 21:36 Vitamin B1 - PO 100 mg HS OLVIN Administration Trimethoprim/Sulfamethoxazole 1 each 03/04/19 10:00 03/16/19 09:53 Bactrim Ds - PO 1 each DAILY OLVIN Administration Medication(s) Change(s): Yes. Will d/c Belsomra 10mg. Will order Belsomra 15mg HS. Current Side Effect: No Lab tests ordered: No Lab tests reviewed: Yes Provider note:: Patient reports anxiety and difficulty sleeping despite accepting belsomra 10mg HS. Medications reviewed with patient. Will d/c belsomra 10mg HS and will order Belsomra 15mg HS. Patient informed that vistaril 50mg is available every 6 hours as needed. As per the MAR patient last accepted vistaril 50mg on 03/14/19. Patient educated on the importance of proper sleep hygiene and on utilizing her coping skills to help manage her anxiety. Patient satisfied and receptive to feedback. Benefits and side effects discussed. Verbal consent given. Total face to face time:: 25 Mental Status Exam - Mental Status Exam Alert and Oriented to: Time, Place, Person Cognitive Function: Good Patient Appearance: Well Groomed Mood: Euthymic Affect: Mood Congruent Patient Behavior: Cooperative Speech Pattern: Appropriate Voice Loudness: Normal Thought Process: Goal Oriented Thought Disorder: Not Present Hallucinations: Denies Suicidal Ideation: Denies Homicidal Ideation: Denies Insight/Judgement: Poor Sleep: Poorly Appetite: Fair Muscle strength/Tone: Normal Gait/Station: Normal Psychiatric Treatment Plan - Problem List (1) Alcohol use disorder Current Visit: Yes (2) Cocaine use disorder Current Visit: Yes (3) Insomnia Current Visit: Yes Comment: . (4) Mood disorder Current Visit: No
[2019-03-16] MEDS: ESTRADIOL 2 MG TABLET (NON-FORMULARY) PO SCH (14:36)
[2019-03-16] MEDS: THIAMINE HCL 100 MG TABLET (FP) PO SCH (21:53)
[2019-03-16] MEDS: MELATONIN 5 MG TABLETS PO PRN (21:54)
[2019-03-16] MEDS: hydrOXYzine PAMOATE 50 MG CAPSULE (FP) PO PRN (21:55)
[2019-03-16] MEDS: SUVOREXANT 15 MG TABLET PO PRN (21:56)
[2019-03-17] MEDS: NICOTINE 21 MG/24 HOURS TOPICAL PATCH TD SCH (09:47)
[2019-03-17] MEDS: BUDESONIDE/FORMETEROL FUMARATE 80/4.5 mcg INHALER IH SCH ×2 (09:48→21:23)
[2019-03-17] MEDS: BICTEGRAV/EMTRICIT/TENOFOV (BIKTARVY) 50-200-25 MG TABLET PO SCH (09:48)
[2019-03-17] MEDS: SULFAMETHOXAZOLE/TRIMETHOPRIM 800MG/160MG D.S. TABLET PO SCH (09:48)
[2019-03-17] MEDS: PRENATAL VITAMINS W/ FOLIC ACID TABLET (FP) PO SCH (09:48)
[2019-03-17] MEDS: MINERAL OIL/PETROLAT/WATER TOPICAL CREAM 113 GM JAR TP SCH ×2 (09:49→21:22)
[2019-03-17] MEDS: ESTRADIOL 2 MG TABLET (NON-FORMULARY) PO SCH (13:11)
[2019-03-17] MEDS ORDERED: PT OWN MED DRAWER 7, Y5N ONE (13:12)
[2019-03-17] MEDS: SIMETHICONE 80 MG TAB.CHEW (FP) PO PRN (13:13)
[2019-03-17] MEDS: hydrOXYzine PAMOATE 50 MG CAPSULE (FP) PO PRN (21:20)
[2019-03-17] MEDS: THIAMINE HCL 100 MG TABLET (FP) PO SCH (21:20)
[2019-03-17] MEDS: SUVOREXANT 15 MG TABLET PO PRN (21:22)
[2019-03-17] MEDS: MELATONIN 5 MG TABLETS PO PRN (21:22)
[2019-03-18] MEDS ORDERED: PT OWN MED DRAWER 7, Y5N ONE ×2 (08:28→18:30)
[2019-03-18] MEDS: PRENATAL VITAMINS W/ FOLIC ACID TABLET (FP) PO SCH (10:09)
[2019-03-18] MEDS: SULFAMETHOXAZOLE/TRIMETHOPRIM 800MG/160MG D.S. TABLET PO SCH (10:09)
[2019-03-18] MEDS: BICTEGRAV/EMTRICIT/TENOFOV (BIKTARVY) 50-200-25 MG TABLET PO SCH (10:10)
[2019-03-18] MEDS: BUDESONIDE/FORMETEROL FUMARATE 80/4.5 mcg INHALER IH SCH ×2 (10:10→21:09)
[2019-03-18] MEDS: NICOTINE 21 MG/24 HOURS TOPICAL PATCH TD SCH (10:10)
[2019-03-18] MEDS: MINERAL OIL/PETROLAT/WATER TOPICAL CREAM 113 GM JAR TP SCH ×2 (10:11→21:08)
[2019-03-18] MEDS: ESTRADIOL 2 MG TABLET (NON-FORMULARY) PO SCH (13:49)
[2019-03-18] MEDS: THIAMINE HCL 100 MG TABLET (FP) PO SCH (21:09)
[2019-03-18] MEDS: hydrOXYzine PAMOATE 50 MG CAPSULE (FP) PO PRN (21:09)
[2019-03-18] MEDS: SUVOREXANT 15 MG TABLET PO PRN (21:09)
[2019-03-18] MEDS: MELATONIN 5 MG TABLETS PO PRN (21:10)
[2019-03-19] MEDS ORDERED: PT OWN MED DRAWER 7, Y5N ONE ×3 (08:31→21:08)
[2019-03-19] MEDS: SULFAMETHOXAZOLE/TRIMETHOPRIM 800MG/160MG D.S. TABLET PO SCH (09:38)
[2019-03-19] MEDS: PRENATAL VITAMINS W/ FOLIC ACID TABLET (FP) PO SCH (09:38)
[2019-03-19] MEDS: BICTEGRAV/EMTRICIT/TENOFOV (BIKTARVY) 50-200-25 MG TABLET PO SCH (09:39)
[2019-03-19] MEDS: MINERAL OIL/PETROLAT/WATER TOPICAL CREAM 113 GM JAR TP SCH ×2 (09:40→21:06)
[2019-03-19] MEDS: NICOTINE 21 MG/24 HOURS TOPICAL PATCH TD SCH (09:40)
[2019-03-19] MEDS: BUDESONIDE/FORMETEROL FUMARATE 80/4.5 mcg INHALER IH SCH ×2 (09:40→21:06)
[2019-03-19] MEDS: ESTRADIOL 2 MG TABLET (NON-FORMULARY) PO SCH (14:03)
[2019-03-19] MEDS: SUVOREXANT 15 MG TABLET PO PRN (21:05)
[2019-03-19] MEDS: THIAMINE HCL 100 MG TABLET (FP) PO SCH (21:05)
[2019-03-19] MEDS: hydrOXYzine PAMOATE 50 MG CAPSULE (FP) PO PRN (21:06)
[2019-03-19] MEDS: MELATONIN 5 MG TABLETS PO PRN (21:07)
[2019-03-20] MEDS: NICOTINE 21 MG/24 HOURS TOPICAL PATCH TD SCH (09:55)
[2019-03-20] MEDS: MINERAL OIL/PETROLAT/WATER TOPICAL CREAM 113 GM JAR TP SCH ×2 (09:56→21:30)
[2019-03-20] MEDS: SULFAMETHOXAZOLE/TRIMETHOPRIM 800MG/160MG D.S. TABLET PO SCH (09:56)
[2019-03-20] MEDS: BICTEGRAV/EMTRICIT/TENOFOV (BIKTARVY) 50-200-25 MG TABLET PO SCH (09:56)
[2019-03-20] MEDS: PRENATAL VITAMINS W/ FOLIC ACID TABLET (FP) PO SCH (09:56)
[2019-03-20] MEDS: BUDESONIDE/FORMETEROL FUMARATE 80/4.5 mcg INHALER IH SCH ×2 (09:57→21:15)
[2019-03-20] MEDS ORDERED: PT OWN MED DRAWER 7, Y5N ONE ×3 (10:44→21:47)
--- NOTE | 2019-03-20 13:52 | PN ---
[facility] Progress Note (SOAP) Subjective: patient c/o blister between her first and second toes. States it hurts to walk. Objective: P/E General: no apparent distress MSK: Limping, favoring right foot SKIN:Blister between toes on plantar aspect of foot; raised, fluid filled. Also , fungus on great toes, bilaterally 03/20/19 13:50 Assessment: Blister, plantar aspect of foot, between 1st and 2nd toes. tinea pedis 03/20/19 13:48 03/20/19 13:50 Plan: Blister: Blister was cleaned with alcohol. Then 3 punctures were made with a needle, clear fluid drained. Clean 2x2 applied. Patient cautioned to keep feet clean and dry. Tinea: tinactin cream ordered. Patient encouraged to follow up with brand strategist or PCP upon admission.
[2019-03-20] MEDS: ESTRADIOL 2 MG TABLET (NON-FORMULARY) PO SCH (13:56)
[2019-03-20] MEDS: SIMETHICONE 80 MG TAB.CHEW (FP) PO PRN (21:16)
[2019-03-20] MEDS: MELATONIN 5 MG TABLETS PO PRN (21:16)
[2019-03-20] MEDS: SENNOSIDES 8.6MG TABLET (FP) PO PRN (21:16)
[2019-03-20] MEDS: THIAMINE HCL 100 MG TABLET (FP) PO SCH (21:16)
[2019-03-20] MEDS: MAGNESIUM CITRATE 300 ML BOTTLE PO PRN (21:18)
[2019-03-20] MEDS: TOLNAFTATE 1% CREAM 15 GM TUBE TP SCH ×2 (21:30→21:47)
[2019-03-21] MEDS ORDERED: PT OWN MED DRAWER 7, Y5N ONE ×2 (08:38→09:40)
[2019-03-21] MEDS: NICOTINE 21 MG/24 HOURS TOPICAL PATCH TD SCH (09:38)
[2019-03-21] MEDS: PRENATAL VITAMINS W/ FOLIC ACID TABLET (FP) PO SCH (09:38)
[2019-03-21] MEDS: SULFAMETHOXAZOLE/TRIMETHOPRIM 800MG/160MG D.S. TABLET PO SCH (09:38)
[2019-03-21] MEDS: BUDESONIDE/FORMETEROL FUMARATE 80/4.5 mcg INHALER IH SCH ×2 (09:38→21:12)
[2019-03-21] MEDS: BICTEGRAV/EMTRICIT/TENOFOV (BIKTARVY) 50-200-25 MG TABLET PO SCH (09:39)
[2019-03-21] MEDS: TOLNAFTATE 1% CREAM 15 GM TUBE TP SCH ×2 (09:40→21:12)
[2019-03-21] MEDS: MINERAL OIL/PETROLAT/WATER TOPICAL CREAM 113 GM JAR TP SCH ×2 (09:40→21:11)
[2019-03-21] MEDS: COLLOIDAL OATMEAL 1 BAR EACH TP PRN (10:20)
--- NOTE | 2019-03-21 10:24 | DS ---
[facility] Rehab Discharge Summary - [facility] Rehab Discharge Summary Admission Date: 03/03/19 Discharge Date: 03/22/19 - History Present History: Alcohol dependence, Cocaine dependence Pertinent Past History: 43 yo with HIV pos, asthma, no MH problems, was last here 2 years ago. Since then pt has been in an outpt program at [facility]-alcohol support groups, HIV care. Pt states she has been drinking a lot: 2 6packs/day- h/o blackouts, no seizures. Cocaine 4 times a week- $100 each time. HIV- Biktarvy, takes it every day, does not know CD4 or VL. 0 - Discharge Physical Exam Vital Signs: Vital Signs Temperature 97.9 F 03/21/19 07:23 Pulse Rate 76 03/21/19 07:23 Respiratory Rate 18 03/21/19 07:23 Blood Pressure 106/78 03/21/19 07:23 O2 Sat by Pulse Oximetry (%) Pertinent Admission Physical Exam Findings: P/E General: No apparent distress HEENTM: Normocephalic, PERRLA Neck: supple Heart: S1 s2 Lungs: clear ABD: +BS, non-tender, non-distended MSK: Full weight bearing, full ROM, Steady gait Neuro: CN 2-12 intact SKIN: Blister, between 1st and 2nd toe, resolving - Treatment Discharge Condition: Discharge condition good (Medically stable for discharge.Patient will go to [facility] for aftercare.) Hospital Course: Patient attended groups, had 1:1 with counselor, was seen by psychiatric service. Her only medical problems while in rehab were constipation and a blister on her right foot. Both were resolved satisfactorily. - Medication Discharge Medications: Ambulatory Orders Estradiol [Estrace] 6 mg PO DAILY 03/06/12 Quetiapine Fumarate [Seroquel] 50 mg PO HS 02/27/19 Albuterol Sulfate Inhaler - [Ventolin HFA Inhaler -] 2 puff IH BID PRN #1 inhaler 03/21/19 Bictegrav/Emtricit/Tenofov Ala [Biktarvy 50-200-25 mg Tablet] 1 each PO DAILY # 30 tablet 03/21/19 Bictegrav/Emtricit/Tenofov Ala [Biktarvy 50-200-25 mg Tablet] 1 each PO DAILY # 30 tablet 03/21/19 Budesonide/Formeterol Fumarate [SYMBICORT 80/4.5mcg -] 2 inh PO BID #1 inhaler 03/21/19 Estradiol [Estradiol (Non-Formulary)] 6 mg PO DAILY@1400 #30 tablet 03/21/19 Ferrous Sulfate [Feosol] 325 mg PO DAILY@0800 #30 ud 03/21/19 Fluticasone/Salmeterol [Advair 250-50 Diskus] 2 puff IH DAILY #1 blst.w.dev 02/27 Sulfamethoxazole/Trimethoprim [Bactrim DS -] 1 each PO DAILY #30 tablet - Medication-Assisted Treatment (MAT) Medication-Assisted Treatment (MAT): No - Discharge Instructions Diet, activity, other medical instructions: Diet: as tolerated Activity: as tolerated Other medical instructions: Please follow up with aftercare referral and see PCP /HIV Specialist within 2 weeks of discharge. - Diagnosis (1) Alcohol use disorder Current Visit: Yes Status: Chronic (2) Cocaine use disorder Current Visit: Yes Status: Chronic - Follow-up Referral Minutes to complete discharge: 20 - AMA Did Patient Leave Against Medical Advice: No Additional Comments: Prescriptions transmitted to [facility] pharmacy.
[2019-03-21] MEDS: ESTRADIOL 2 MG TABLET (NON-FORMULARY) PO SCH (13:45)
[2019-03-21] MEDS: THIAMINE HCL 100 MG TABLET (FP) PO SCH (21:07)
[2019-03-21] MEDS: MELATONIN 5 MG TABLETS PO PRN (21:09)
[2019-03-21] MEDS: hydrOXYzine PAMOATE 50 MG CAPSULE (FP) PO PRN (21:11)
[2019-03-21] MEDS ORDERED: SUVOREXANT 15 MG TABLET PO PRN (22:00)
[2019-03-22 06:48] VITALS: BP 117/81; PULSE 73; TEMP 98.2
[2019-03-22] MEDS: BUDESONIDE/FORMETEROL FUMARATE 80/4.5 mcg INHALER IH SCH (09:03)
[2019-03-22] MEDS: TOLNAFTATE 1% CREAM 15 GM TUBE TP SCH (09:03)
[2019-03-22] MEDS: SULFAMETHOXAZOLE/TRIMETHOPRIM 800MG/160MG D.S. TABLET PO SCH (09:03)
[2019-03-22] MEDS: PRENATAL VITAMINS W/ FOLIC ACID TABLET (FP) PO SCH (09:03)
[2019-03-22] MEDS: MAG HYDROX/AL HYDROX/SIMETH 30 ML UNIT-DOSE CUP PO PRN (09:06)
[2019-03-22] MEDS: NICOTINE 21 MG/24 HOURS TOPICAL PATCH TD SCH (09:07)
== END 2019-03-22 09:30 | disposition home or self-care (01) | DRG 895 ==
LOC: YASAS 12:05 → Y3E 12:06
PROVIDERS: ADMIT Neuromusculoskeletal Medicine & OMM; ATTEND Neuromusculoskeletal Medicine & OMM
PROC: HZ42ZZZ Group Counseling for Substance Abuse Treatment, Cognitive-Behavioral (ICD-10-PCS; principal; 2019-03-02)
DX: F10.20 Alcohol dependence, uncomplicated (principal); F14.20 Cocaine dependence, uncomplicated; F12.20 Cannabis dependence, uncomplicated; F17.210 Nicotine dependence, cigarettes, uncomplicated; F39 Unspecified mood [affective] disorder; Z21 Asymptomatic human immunodeficiency virus [HIV] infection status; G47.00 Insomnia, unspecified; D64.9 Anemia, unspecified; J45.909 Unspecified asthma, uncomplicated; B35.3 Tinea pedis; K59.00 Constipation, unspecified; S90.821A Blister (nonthermal), right foot, initial encounter; Z86.69 Personal history of other diseases of the nervous system and sense organs

== ENCOUNTER 2021-05-15 13:13 | Inpatient (IN) | payer OTHER ==
[2021-05-15] MEDS ORDERED: MAGNESIUM CITRATE 300 ML BOTTLE PO PRN (14:38)
[2021-05-15] MEDS ORDERED: ONDANSETRON *ODT* 4 MG TABLET SL PRN (14:38)
[2021-05-15] MEDS ORDERED: chlordiazePOXIDE HCL 25 MG CAPSULE PO PRN (14:38)
[2021-05-15] MEDS ORDERED: BISMUTH SUBSALICYLATE 524 MG/30 ML PO PRN (14:38)
[2021-05-15] MEDS ORDERED: MAG HYDROX/AL HYDROX/SIMETH 30 ML UNIT-DOSE CUP PO PRN (14:38)
[2021-05-15] MEDS ORDERED: IBUPROFEN 400 MG TABLET (FP) PO PRN (14:38)
[2021-05-15] MEDS ORDERED: ACETAMINOPHEN 325 MG TABLET (FP) PO PRN ×2 (14:38)
[2021-05-15] MEDS ORDERED: NICOTINE 10 MG CARTRIDGE (INHALER) IH PRN (14:38)
[2021-05-15] MEDS ORDERED: MAGNESIUM HYDROX 2400MG/30ML ORAL SUSPENSION 30 ML CUP PO PRN (14:38)
[2021-05-15] MEDS ORDERED: MENTHOL/PHENOL 1 EACH UD MM PRN (14:38)
[2021-05-15 14:59] VITALS: BMI 26.1
[2021-05-15] MEDS: guaiFENesin 200 MG/10 ML 10 ML UNIT-DOSE CUPS PO PRN ×2 (15:59→22:55)
[2021-05-15] MEDS: hydrOXYzine PAMOATE 25 MG CAPSULE (FP) PO SCH ×2 (20:53→22:51)
[2021-05-15] MEDS: chlordiazePOXIDE HCL 25 MG CAPSULE PO SCH ×2 (20:53→22:51)
[2021-05-15] MEDS: THIAMINE HCL 100 MG TABLET (FP) PO SCH (22:51)
[2021-05-15] MEDS: MELATONIN 5 MG TABLETS PO SCH (22:51)
[2021-05-16] MEDS: guaiFENesin 200 MG/10 ML 10 ML UNIT-DOSE CUPS PO PRN (05:21)
[2021-05-16] MEDS: chlordiazePOXIDE HCL 25 MG CAPSULE PO SCH ×4 (05:21→22:17)
[2021-05-16] MEDS: hydrOXYzine PAMOATE 25 MG CAPSULE (FP) PO SCH ×5 (05:22→22:18)
[2021-05-16] MEDS: PRENATAL VITAMINS W/ FOLIC ACID TABLET (FP) PO SCH (10:15)
[2021-05-16] MEDS ORDERED: ALBUTEROL SO4 HFA INHALER IH PRN (13:32)
[2021-05-16] MEDS ORDERED: BICTEGRAV/EMTRICIT/TENOFOV (BIKTARVY) 50-200-25 MG TABLET PO SCH (13:45)
[2021-05-16 13:53] LABS: HEMATOCRIT 36.2 % (32.4-45.2); HEMOGLOBIN 12.1 GM/dL (10.7-15.3); MCH 27.6 pg (25.7-33.7); MCHC 33.4 g/dl (32.0-36.0); MEAN CELL VOLUME 82.7 fl (80-96); MEAN PLT VOLUME 7.2 fl (7.5-11.1); PLATELET COUNT 277 10^3/uL (134-434); RBC 4.38 M/mm3 (3.60-5.2); RDW 13.9 % (11.6-15.6); WHITE BLOOD COUNT 4.7 K/mm3 (4.0-10.0)
[2021-05-16] MEDS: SULFAMETHOXAZOLE/TRIMETHOPRIM 800MG/160MG D.S. TABLET PO SCH (14:02)
[2021-05-16 14:26] LABS: ALBUMIN 3.2 g/dl (3.4-5.0); BLOOD UREA NITROGEN 16.3 mg/dL (7-18); CALCIUM 9.2 mg/dL (8.5-10.1)
[2021-05-16 14:28] LABS: CREATININE 1.2 mg/dL (0.55-1.3)
[2021-05-16 14:31] LABS: BILIRUBIN,TOTAL 0.2 mg/dL (0.2-1)
[2021-05-16] MEDS: THIAMINE HCL 100 MG TABLET (FP) PO SCH (22:17)
[2021-05-16] MEDS: ESTRADIOL 2 MG PO SCH (22:17)
[2021-05-16] MEDS: QUEtiapine FUMARATE 50 MG TABLET PO SCH (22:17)
[2021-05-16] MEDS: PATIENT'S OWN MEDICATION (NON-FORMULARY) (Elviteg/Cob/Emtri/Tenof Alafen 1 TAB Tablet) PO SCH (22:17)
[2021-05-16] MEDS: BUDESONIDE/FORMETEROL FUMARATE 80/4.5 mcg INHALER IH SCH (22:19)
[2021-05-16] MEDS: MELATONIN 5 MG TABLETS PO SCH (22:19)
[2021-05-16] MEDS: guaiFENesin 200 MG/10 ML 10 ML UNIT-DOSE CUPS PO SCH (22:20)
[2021-05-17] MEDS: guaiFENesin 200 MG/10 ML 10 ML UNIT-DOSE CUPS PO SCH ×3 (02:50→18:31)
[2021-05-17] MEDS: chlordiazePOXIDE HCL 25 MG CAPSULE PO SCH ×4 (05:13→23:31)
[2021-05-17] MEDS: hydrOXYzine PAMOATE 25 MG CAPSULE (FP) PO SCH ×5 (05:15→23:41)
[2021-05-17] MEDS: BUDESONIDE/FORMETEROL FUMARATE 80/4.5 mcg INHALER IH SCH ×2 (10:55→23:30)
[2021-05-17] MEDS: PRENATAL VITAMINS W/ FOLIC ACID TABLET (FP) PO SCH (10:55)
[2021-05-17] MEDS: SULFAMETHOXAZOLE/TRIMETHOPRIM 800MG/160MG D.S. TABLET PO SCH (10:56)
[2021-05-17] MEDS: PATIENT'S OWN MEDICATION (NON-FORMULARY) (Elviteg/Cob/Emtri/Tenof Alafen 1 TAB Tablet) PO SCH (10:58)
[2021-05-17] MEDS: ESTRADIOL 2 MG PO SCH (10:58)
[2021-05-17] MEDS: QUEtiapine FUMARATE 50 MG TABLET PO SCH (23:30)
[2021-05-17] MEDS: MELATONIN 5 MG TABLETS PO SCH (23:30)
[2021-05-17] MEDS: THIAMINE HCL 100 MG TABLET (FP) PO SCH (23:41)
[2021-05-18] MEDS ORDERED: chlordiazePOXIDE HCL 10 MG CAPSULE PO PRN
[2021-05-18] MEDS: guaiFENesin 200 MG/10 ML 10 ML UNIT-DOSE CUPS PO SCH ×2 (03:30→10:16)
[2021-05-18] MEDS: chlordiazePOXIDE HCL 10 MG CAPSULE PO SCH ×4 (05:10→22:34)
[2021-05-18] MEDS: hydrOXYzine PAMOATE 25 MG CAPSULE (FP) PO SCH ×5 (05:10→22:34)
[2021-05-18] MEDS: PRENATAL VITAMINS W/ FOLIC ACID TABLET (FP) PO SCH (10:13)
[2021-05-18] MEDS: BUDESONIDE/FORMETEROL FUMARATE 80/4.5 mcg INHALER IH SCH ×2 (10:13→22:33)
[2021-05-18] MEDS: ESTRADIOL 2 MG PO SCH (10:14)
[2021-05-18] MEDS: SULFAMETHOXAZOLE/TRIMETHOPRIM 800MG/160MG D.S. TABLET PO SCH (10:14)
[2021-05-18] MEDS: METHOCARBAMOL 500 MG TABLET PO PRN (10:14)
[2021-05-18] MEDS ORDERED: NICOTINE POLACRILEX 2 MG GUM BUC PRN (10:35)
[2021-05-18] MEDS: MELATONIN 5 MG TABLETS PO SCH (22:34)
[2021-05-18] MEDS: THIAMINE HCL 100 MG TABLET (FP) PO SCH (22:34)
[2021-05-18] MEDS: QUEtiapine FUMARATE 50 MG TABLET PO SCH (22:34)
[2021-05-19] MEDS: chlordiazePOXIDE HCL 10 MG CAPSULE PO SCH ×2 (06:27→17:49)
[2021-05-19] MEDS: hydrOXYzine PAMOATE 25 MG CAPSULE (FP) PO SCH ×5 (06:28→21:58)
[2021-05-19] MEDS: ELVITEG/COB/EMTRI/TENOF (GENVOYA) TABLET (NF) PO SCH (07:05)
[2021-05-19] MEDS: ESTRADIOL 2 MG PO SCH (10:04)
[2021-05-19] MEDS: PRENATAL VITAMINS W/ FOLIC ACID TABLET (FP) PO SCH (10:05)
[2021-05-19] MEDS: SULFAMETHOXAZOLE/TRIMETHOPRIM 800MG/160MG D.S. TABLET PO SCH (10:05)
[2021-05-19] MEDS: NICOTINE 21 MG/24 HOURS TOPICAL PATCH TD SCH ×2 (10:05→10:08)
[2021-05-19] MEDS: BUDESONIDE/FORMETEROL FUMARATE 80/4.5 mcg INHALER IH SCH ×2 (10:05→21:59)
[2021-05-19] MEDS: METHOCARBAMOL 500 MG TABLET PO PRN (10:05)
[2021-05-19] MEDS: MELATONIN 5 MG TABLETS PO SCH (21:58)
[2021-05-19] MEDS: QUEtiapine FUMARATE 50 MG TABLET PO SCH (21:58)
[2021-05-19] MEDS: THIAMINE HCL 100 MG TABLET (FP) PO SCH (21:58)
[2021-05-20] MEDS ORDERED: chlordiazePOXIDE HCL 10 MG CAPSULE PO ONE (05:00)
[2021-05-20] MEDS: hydrOXYzine PAMOATE 25 MG CAPSULE (FP) PO SCH ×4 (06:15→13:35)
[2021-05-20] MEDS: ELVITEG/COB/EMTRI/TENOF (GENVOYA) TABLET (NF) PO SCH (07:13)
[2021-05-20] MEDS: METHOCARBAMOL 500 MG TABLET PO PRN (10:06)
[2021-05-20] MEDS: PRENATAL VITAMINS W/ FOLIC ACID TABLET (FP) PO SCH (10:06)
[2021-05-20] MEDS: SULFAMETHOXAZOLE/TRIMETHOPRIM 800MG/160MG D.S. TABLET PO SCH (10:06)
[2021-05-20] MEDS: NICOTINE 21 MG/24 HOURS TOPICAL PATCH TD SCH ×2 (10:07→10:08)
[2021-05-20] MEDS: ESTRADIOL 2 MG PO SCH (10:07)
[2021-05-20] MEDS: BUDESONIDE/FORMETEROL FUMARATE 80/4.5 mcg INHALER IH SCH (10:09)
[2021-05-20 13:33] VITALS: BP 131/81; PULSE 87; TEMP 97.4
== END 2021-05-20 16:17 | disposition other institution (70) | DRG 897 ==
LOC: YASAS 13:13 → Y6N 18:26
PROVIDERS: ADMIT Allergy & Immunology; ATTEND Allergy & Immunology
PROC: HZ2ZZZZ Detoxification Services for Substance Abuse Treatment (ICD-10-PCS; principal; 2021-05-15)
DX: F10.230 Alcohol dependence with withdrawal, uncomplicated (principal); F14.20 Cocaine dependence, uncomplicated; F12.20 Cannabis dependence, uncomplicated; F17.210 Nicotine dependence, cigarettes, uncomplicated; F31.9 Bipolar disorder, unspecified; F19.24 Other psychoactive substance dependence with psychoactive substance-induced mood disorder; F64.0 Transsexualism; R73.9 Hyperglycemia, unspecified; Z62.810 Personal history of physical and sexual abuse in childhood; Z91.410 Personal history of adult physical and sexual abuse; Z86.19 Personal history of other infectious and parasitic diseases; Z86.69 Personal history of other diseases of the nervous system and sense organs; Z91.14 Patient's other noncompliance with medication regimen
CPT/HCPCS: 36415; 80053; 80164; 82962; 85027; 86593; 86780; 93005; 93010; C9803; U0003; U0005

== ENCOUNTER 2022-05-03 10:36 | Inpatient (IN) | payer OTHER ==
[2022-05-03 11:03] VITALS: BMI 21.9
[2022-05-03] MEDS ORDERED: BENZOCAINE/MENTHOL (CHLORASEPTIC ) LOZENGE MM PRN (11:30)
[2022-05-03] MEDS ORDERED: P-EPHED 60MG/TRIPROLIDI 2.5MG TABLET PO PRN (11:30)
[2022-05-03] MEDS ORDERED: NICOTINE POLACRILEX 2 MG GUM BC PRN (11:30)
[2022-05-03] MEDS ORDERED: POLYETHYLENE GLYCOL (HEALTHYLAX) 3350 17 GM PACKET PO PRN (11:30)
[2022-05-03] MEDS ORDERED: IBUPROFEN 400 MG TABLET (FP) PO PRN (11:30)
[2022-05-03] MEDS ORDERED: hydrOXYzine PAMOATE 25 MG CAPSULE (FP) PO PRN (11:30)
[2022-05-03] MEDS ORDERED: MAGNESIUM HYDROX 2400MG/30ML ORAL SUSPENSION 30 ML CUP PO PRN (11:30)
[2022-05-03] MEDS ORDERED: LOPERAMIDE HCL 2 MG CAPSULE PO PRN (11:30)
[2022-05-03] MEDS ORDERED: MAG HYDROX/AL HYDROX/SIMETH 30 ML UNIT-DOSE CUP PO PRN (11:30)
[2022-05-03] MEDS ORDERED: PATIENT'S OWN MEDICATION (NON-FORMULARY) (Elviteg/Cob/Emtri/Tenof Alafen 1 TAB Tablet) PO SCH (12:00)
[2022-05-03 15:46] LABS: ALBUMIN 3.1 g/dl (3.4-5.0)
[2022-05-03 15:50] LABS: CREATININE 1.1 mg/dL (0.55-1.3)
[2022-05-03 15:51] LABS: BILIRUBIN,TOTAL 0.1 mg/dL (0.2-1); TOT PROT 6.7 g/dl (6.4-8.2)
[2022-05-03] MEDS: NICOTINE 7 MG/24 HOURS TOPICAL PATCH TD SCH (15:53)
[2022-05-03] MEDS: PRENATAL VITAMINS W/ FOLIC ACID TABLET (FP) PO SCH (15:54)
[2022-05-03] MEDS: BUDESONIDE/FORMETEROL FUMARATE 160/4.5 mcg INHALER IH SCH ×2 (15:54→23:11)
[2022-05-03 16:08] LABS: HEMATOCRIT 44.5 % (32.4-45.2); HEMOGLOBIN 14.1 GM/dL (10.7-15.3); MCH 27.1 pg (25.7-33.7); MCHC 31.8 g/dl (32.0-36.0); MEAN CELL VOLUME 85.2 fl (80-96); MEAN PLT VOLUME 7.5 fl (7.5-11.1); PLATELET COUNT 305 10^3/uL (134-434); RBC 5.23 M/mm3 (3.60-5.2); RDW 13.7 % (11.6-15.6); WHITE BLOOD COUNT 8.8 K/mm3 (4.0-10.0)
[2022-05-03 18:50] LABS: SYPHILIS W/ RPR CONF REACTIVE (NONREACTIVE)
[2022-05-03] MEDS: MELATONIN 5 MG TABLETS PO SCH (23:11)
[2022-05-03] MEDS: THIAMINE HCL 100 MG TABLET (FP) PO SCH (23:11)
[2022-05-04 08:44] VITALS: RESP 18
[2022-05-04] MEDS: NICOTINE 7 MG/24 HOURS TOPICAL PATCH TD SCH (10:46)
[2022-05-04] MEDS: BUDESONIDE/FORMETEROL FUMARATE 160/4.5 mcg INHALER IH SCH ×2 (10:46→22:31)
[2022-05-04] MEDS: PRENATAL VITAMINS W/ FOLIC ACID TABLET (FP) PO SCH (10:46)
[2022-05-04] MEDS: ELVITEG/COB/EMTRI/TENOF (GENVOYA) TABLET (NF) PO SCH (10:46)
[2022-05-04 11:20] LABS: EPI CELLS 30 /uL (0-25.1); HYALINE CASTS 2 /uL (0-3.1); PH,URINE 6.5 (5.0-8.0); URINE APPEARANCE CLEAR; URINE BACTERIA 1531 /uL (0-1359); URINE BILIRUBIN NEGATIVE (NEGATIVE); URINE COLOR YELLOW; URINE GLUCOSE (UA) NEGATIVE (NEGATIVE); URINE KETONE TRACE (NEGATIVE); URINE LEUK ESTERASE 1+ (NEGATIVE); URINE NITRITE NEGATIVE (NEGATIVE); URINE PROTEIN NEGATIVE (NEGATIVE); URINE RBC 10 /uL (0-23.9); URINE WBC 34 /uL (0-25.8)
[2022-05-04] MEDS: MELATONIN 5 MG TABLETS PO SCH (22:30)
[2022-05-04] MEDS: QUEtiapine FUMARATE 50 MG TABLET PO SCH (22:30)
[2022-05-04] MEDS: THIAMINE HCL 100 MG TABLET (FP) PO SCH (22:31)
[2022-05-05] MEDS: ELVITEG/COB/EMTRI/TENOF (GENVOYA) TABLET (NF) PO SCH (07:03)
[2022-05-05] MEDS: PRENATAL VITAMINS W/ FOLIC ACID TABLET (FP) PO SCH (10:22)
[2022-05-05] MEDS: BUDESONIDE/FORMETEROL FUMARATE 160/4.5 mcg INHALER IH SCH ×2 (10:22→21:55)
[2022-05-05] MEDS: NICOTINE 7 MG/24 HOURS TOPICAL PATCH TD SCH (10:22)
[2022-05-05] MEDS: ALBUTEROL SO4 HFA INHALER IH PRN (16:13)
[2022-05-05] MEDS: QUEtiapine FUMARATE 50 MG TABLET PO SCH (21:55)
[2022-05-05] MEDS: MELATONIN 5 MG TABLETS PO SCH (21:55)
[2022-05-05] MEDS: THIAMINE HCL 100 MG TABLET (FP) PO SCH (21:55)
[2022-05-06] MEDS: ELVITEG/COB/EMTRI/TENOF (GENVOYA) TABLET (NF) PO SCH (08:59)
[2022-05-06] MEDS: ALBUTEROL SO4 HFA INHALER IH PRN (09:00)
[2022-05-06] MEDS: PRENATAL VITAMINS W/ FOLIC ACID TABLET (FP) PO SCH (10:24)
[2022-05-06] MEDS: SULFAMETHOXAZOLE/TRIMETHOPRIM 800MG/160MG D.S. TABLET PO SCH (10:24)
[2022-05-06] MEDS: NICOTINE 7 MG/24 HOURS TOPICAL PATCH TD SCH (10:24)
[2022-05-06] MEDS: BUDESONIDE/FORMETEROL FUMARATE 160/4.5 mcg INHALER IH SCH ×2 (10:24→21:41)
[2022-05-06] MEDS: guaiFENesin 200 MG/10 ML 10 ML UNIT-DOSE CUPS PO PRN (10:28)
[2022-05-06] MEDS ORDERED: NICOTINE 14 MG/24 HOURS TOPICAL PATCH TD PRN (15:40)
[2022-05-06] MEDS: THIAMINE HCL 100 MG TABLET (FP) PO SCH (21:41)
[2022-05-06] MEDS: QUEtiapine FUMARATE 50 MG TABLET PO SCH (21:41)
[2022-05-06] MEDS: MELATONIN 5 MG TABLETS PO SCH (21:41)
[2022-05-07] MEDS: ELVITEG/COB/EMTRI/TENOF (GENVOYA) TABLET (NF) PO SCH (07:13)
[2022-05-07] MEDS: BUDESONIDE/FORMETEROL FUMARATE 160/4.5 mcg INHALER IH SCH ×2 (10:43→21:34)
[2022-05-07] MEDS: ALBUTEROL SO4 HFA INHALER IH PRN ×2 (10:43→21:33)
[2022-05-07] MEDS: SULFAMETHOXAZOLE/TRIMETHOPRIM 800MG/160MG D.S. TABLET PO SCH (10:43)
[2022-05-07] MEDS: PRENATAL VITAMINS W/ FOLIC ACID TABLET (FP) PO SCH (10:43)
[2022-05-07] MEDS: ACETAMINOPHEN 325 MG TABLET (FP) PO PRN (10:44)
[2022-05-07] MEDS: guaiFENesin 200 MG/10 ML 10 ML UNIT-DOSE CUPS PO PRN (10:47)
[2022-05-07] MEDS: QUEtiapine FUMARATE 50 MG TABLET PO SCH (21:32)
[2022-05-07] MEDS: THIAMINE HCL 100 MG TABLET (FP) PO SCH (21:32)
[2022-05-07] MEDS: MELATONIN 5 MG TABLETS PO SCH (21:32)
[2022-05-08] MEDS: ELVITEG/COB/EMTRI/TENOF (GENVOYA) TABLET (NF) PO SCH (07:45)
[2022-05-08] MEDS: SULFAMETHOXAZOLE/TRIMETHOPRIM 800MG/160MG D.S. TABLET PO SCH (10:32)
[2022-05-08] MEDS: PRENATAL VITAMINS W/ FOLIC ACID TABLET (FP) PO SCH (10:32)
[2022-05-08] MEDS: BUDESONIDE/FORMETEROL FUMARATE 160/4.5 mcg INHALER IH SCH ×2 (10:33→21:46)
[2022-05-08] MEDS: NICOTINE 21 MG/24 HOURS TOPICAL PATCH TD SCH (11:38)
[2022-05-08] MEDS: NICOTINE 10 MG CARTRIDGE (INHALER) IH PRN (19:33)
[2022-05-08] MEDS: THIAMINE HCL 100 MG TABLET (FP) PO SCH (21:45)
[2022-05-08] MEDS: QUEtiapine FUMARATE 50 MG TABLET PO SCH (21:45)
[2022-05-08] MEDS: MELATONIN 5 MG TABLETS PO SCH (21:46)
[2022-05-09] MEDS: ELVITEG/COB/EMTRI/TENOF (GENVOYA) TABLET (NF) PO SCH (07:27)
[2022-05-09] MEDS: BUDESONIDE/FORMETEROL FUMARATE 160/4.5 mcg INHALER IH SCH ×2 (10:07→21:29)
[2022-05-09] MEDS: NICOTINE 21 MG/24 HOURS TOPICAL PATCH TD SCH (10:08)
[2022-05-09] MEDS: SULFAMETHOXAZOLE/TRIMETHOPRIM 800MG/160MG D.S. TABLET PO SCH (10:08)
[2022-05-09] MEDS: PRENATAL VITAMINS W/ FOLIC ACID TABLET (FP) PO SCH (10:08)
[2022-05-09] MEDS: THIAMINE HCL 100 MG TABLET (FP) PO SCH (21:29)
[2022-05-09] MEDS: QUEtiapine FUMARATE 50 MG TABLET PO SCH (21:29)
[2022-05-09] MEDS: MELATONIN 5 MG TABLETS PO SCH (21:29)
[2022-05-10] MEDS: ELVITEG/COB/EMTRI/TENOF (GENVOYA) TABLET (NF) PO SCH (07:12)
[2022-05-10] MEDS: ALBUTEROL SO4 HFA INHALER IH PRN (10:14)
[2022-05-10] MEDS: BUDESONIDE/FORMETEROL FUMARATE 160/4.5 mcg INHALER IH SCH ×2 (10:14→21:47)
[2022-05-10] MEDS: PRENATAL VITAMINS W/ FOLIC ACID TABLET (FP) PO SCH (10:15)
[2022-05-10] MEDS: SULFAMETHOXAZOLE/TRIMETHOPRIM 800MG/160MG D.S. TABLET PO SCH (10:15)
[2022-05-10] MEDS: NICOTINE 21 MG/24 HOURS TOPICAL PATCH TD SCH (10:15)
[2022-05-10] MEDS: ACETAMINOPHEN 325 MG TABLET (FP) PO PRN (10:15)
[2022-05-10] MEDS: NICOTINE 10 MG CARTRIDGE (INHALER) IH PRN (10:17)
[2022-05-10] MEDS: guaiFENesin 200 MG/10 ML 10 ML UNIT-DOSE CUPS PO PRN (10:18)
[2022-05-10] MEDS: THIAMINE HCL 100 MG TABLET (FP) PO SCH (21:47)
[2022-05-10] MEDS: QUEtiapine FUMARATE 50 MG TABLET PO SCH (21:47)
[2022-05-10] MEDS: MELATONIN 5 MG TABLETS PO SCH (21:47)
[2022-05-11] MEDS: ELVITEG/COB/EMTRI/TENOF (GENVOYA) TABLET (NF) PO SCH (07:11)
[2022-05-11 07:29] VITALS: BP 130/85; PULSE 85; TEMP 97.2
[2022-05-11] MEDS: PRENATAL VITAMINS W/ FOLIC ACID TABLET (FP) PO SCH (09:57)
[2022-05-11] MEDS: BUDESONIDE/FORMETEROL FUMARATE 160/4.5 mcg INHALER IH SCH (09:57)
[2022-05-11] MEDS: NICOTINE 21 MG/24 HOURS TOPICAL PATCH TD SCH (09:57)
[2022-05-11] MEDS: ALBUTEROL SO4 HFA INHALER IH PRN (09:58)
== END 2022-05-11 10:50 | disposition home or self-care (01) | DRG 895 ==
LOC: YASAS 10:36 → Y5N 15:29
PROVIDERS: ADMIT Allergy & Immunology; ATTEND Psychiatry & Neurology Pain Medicine
PROC: HZ42ZZZ Group Counseling for Substance Abuse Treatment, Cognitive-Behavioral (ICD-10-PCS; principal; 2022-05-03)
DX: F14.10 Cocaine abuse, uncomplicated (principal); F19.282 Other psychoactive substance dependence with psychoactive substance-induced sleep disorder; B20 Human immunodeficiency virus [HIV] disease; F12.20 Cannabis dependence, uncomplicated; F17.210 Nicotine dependence, cigarettes, uncomplicated; F19.24 Other psychoactive substance dependence with psychoactive substance-induced mood disorder; F31.9 Bipolar disorder, unspecified; Z79.899 Other long term (current) drug therapy; F64.0 Transsexualism; J45.909 Unspecified asthma, uncomplicated; Z62.810 Personal history of physical and sexual abuse in childhood; Z91.410 Personal history of adult physical and sexual abuse; Z86.19 Personal history of other infectious and parasitic diseases
CPT/HCPCS: 36415; 71045-TC-FY; 80053; 81003; 82962; 85027; 86593; 86780; 86803; 87811; C9803-CS; U0003; U0005

== ENCOUNTER 2022-11-19 12:28 | Inpatient (IN) | payer OTHER ==
[2022-11-19 14:27] VITALS: BMI 22.6
[2022-11-19] MEDS ORDERED: BISMUTH SUBSALICYLATE 524 MG/30 ML PO PRN (17:02)
[2022-11-19] MEDS ORDERED: POLYETHYLENE GLYCOL (HEALTHYLAX) 3350 17 GM PACKET PO PRN (17:02)
[2022-11-19] MEDS ORDERED: BENZONATATE 200 MG CAPSULE PO PRN (17:02)
[2022-11-19] MEDS ORDERED: NALOXONE HCL 0.4 MG/ML VIAL IM PRN (17:02)
[2022-11-19] MEDS ORDERED: MAGNESIUM HYDROX 2400MG/30ML ORAL SUSPENSION 30 ML CUP PO PRN (17:02)
[2022-11-19] MEDS ORDERED: METHOCARBAMOL 500 MG TABLET PO PRN (17:02)
[2022-11-19] MEDS ORDERED: IBUPROFEN 400 MG TABLET (FP) PO PRN (17:02)
[2022-11-19] MEDS ORDERED: BENZOCAINE/MENTHOL (CHLORASEPTIC ) LOZENGE MM PRN (17:02)
[2022-11-19] MEDS ORDERED: IBUPROFEN 600 MG TABLET (FP) PO PRN (17:02)
[2022-11-19] MEDS ORDERED: ACETAMINOPHEN 325 MG TABLET (FP) PO PRN (17:02)
[2022-11-19] MEDS ORDERED: LOPERAMIDE HCL 2 MG CAPSULE PO PRN (17:02)
[2022-11-19] MEDS ORDERED: guaiFENesin 600 MG TABLET.ER (FP) PO PRN (17:02)
[2022-11-19] MEDS ORDERED: DICYCLOMINE HCL 10 MG CAPSULE PO PRN (17:02)
[2022-11-19] MEDS ORDERED: ONDANSETRON *ODT* 4 MG TABLET SL PRN (17:02)
[2022-11-19] MEDS ORDERED: NALOXONE HCL (KLOXXADO) 8 MG SPRAY NS PRN (17:02)
[2022-11-19] MEDS ORDERED: MAG HYDROX/AL HYDROX/SIMETH 30 ML UNIT-DOSE CUP PO PRN (17:02)
[2022-11-19] MEDS ORDERED: ALBUTEROL SO4 2.5/IPRATROPIUM 0.5 INH SOL 3 ML VIAL.NEB. NEB ONE ×2 (17:04→17:10)
[2022-11-19] MEDS: predniSONE 20 MG TABLET (UD) PO SCH (18:52)
[2022-11-19] MEDS ORDERED: ALBUTEROL SO4 HFA INHALER IH PRN (19:25)
[2022-11-19] MEDS: THIAMINE HCL 100 MG TABLET (FP) PO SCH (22:45)
[2022-11-19] MEDS: MELATONIN 5 MG TABLETS PO SCH (22:45)
[2022-11-19] MEDS: BUDESONIDE/FORMETEROL FUMARATE 160/4.5 mcg INHALER IH SCH (23:02)
[2022-11-20 09:38] LABS: CALCIUM 8.4 mg/dL (8.5-10.1); HEMATOCRIT 36.4 % (32.4-45.2); HEMOGLOBIN 11.5 GM/dL (10.7-15.3); MCHC 31.8 g/dl (32.0-36.0); MEAN CELL VOLUME 84.9 fl (80-96); MEAN PLT VOLUME 7.2 fl (7.5-11.1); PLATELET COUNT 420 10^3/uL (134-434); RBC 4.28 M/mm3 (3.60-5.2); RDW 14.1 % (11.6-15.6); WHITE BLOOD COUNT 6.3 K/mm3 (4.0-10.0)
[2022-11-20 09:39] LABS: ALBUMIN 2.8 g/dl (3.4-5.0); BLOOD UREA NITROGEN 25.3 mg/dL (7-18)
[2022-11-20 09:42] LABS: CREATININE 1.1 mg/dL (0.55-1.3)
[2022-11-20 09:44] LABS: BILIRUBIN,TOTAL 0.3 mg/dL (0.2-1); TOT PROT 7.6 g/dl (6.4-8.2)
[2022-11-20] MEDS ORDERED: ELVITEG/COB/EMTRI/TENOF (GENVOYA) TABLET PO SCH (10:00)
[2022-11-20] MEDS: PRENATAL VITAMINS W/ FOLIC ACID TABLET (FP) PO SCH (10:24)
[2022-11-20] MEDS: BUDESONIDE/FORMETEROL FUMARATE 160/4.5 mcg INHALER IH SCH ×2 (10:24→22:18)
[2022-11-20] MEDS: predniSONE 20 MG TABLET (UD) PO SCH (11:00)
[2022-11-20] MEDS: PATIENT'S OWN MEDICATION (NON-FORMULARY) (Darunavir/Cob/Emtri/Tenof Alaf 1 EACH Tablet) PO SCH (11:28)
[2022-11-20] MEDS: SULFAMETHOXAZOLE/TRIMETHOPRIM 800MG/160MG D.S. TABLET PO SCH (11:28)
[2022-11-20] MEDS: hydrOXYzine PAMOATE 25 MG CAPSULE (FP) PO PRN ×2 (15:08→22:19)
[2022-11-20] MEDS: MELATONIN 5 MG TABLETS PO SCH (22:18)
[2022-11-20] MEDS: THIAMINE HCL 100 MG TABLET (FP) PO SCH (22:18)
[2022-11-21 09:45] VITALS: TEMP 97.7
[2022-11-21] MEDS: predniSONE 20 MG TABLET (UD) PO SCH (10:33)
[2022-11-21] MEDS: SULFAMETHOXAZOLE/TRIMETHOPRIM 800MG/160MG D.S. TABLET PO SCH (10:33)
[2022-11-21] MEDS: PRENATAL VITAMINS W/ FOLIC ACID TABLET (FP) PO SCH (10:34)
[2022-11-21] MEDS: BUDESONIDE/FORMETEROL FUMARATE 160/4.5 mcg INHALER IH SCH (10:34)
[2022-11-21] MEDS: PATIENT'S OWN MEDICATION (NON-FORMULARY) (Darunavir/Cob/Emtri/Tenof Alaf 1 EACH Tablet) PO SCH (10:34)
[2022-11-21 12:59] VITALS: BP 129/91; PULSE 90; RESP 18
[2022-11-21] MEDS ORDERED: QUEtiapine FUMARATE 50 MG TABLET PO SCH (22:00)
== END 2022-11-21 15:47 | disposition other institution (70) | DRG 897 ==
LOC: YASAS 12:28 → Y6N 18:20
PROVIDERS: ADMIT Allergy & Immunology; ATTEND Psychiatry & Neurology Pain Medicine
PROC: HZ2ZZZZ Detoxification Services for Substance Abuse Treatment (ICD-10-PCS; principal; 2022-11-19)
DX: F10.230 Alcohol dependence with withdrawal, uncomplicated (principal); F14.20 Cocaine dependence, uncomplicated; J45.22 Mild intermittent asthma with status asthmaticus; F19.24 Other psychoactive substance dependence with psychoactive substance-induced mood disorder; F31.9 Bipolar disorder, unspecified; F64.0 Transsexualism; Z21 Asymptomatic human immunodeficiency virus [HIV] infection status; Z62.810 Personal history of physical and sexual abuse in childhood; Z86.19 Personal history of other infectious and parasitic diseases
CPT/HCPCS: 36415; 80053; 85027; 86593; 86780; 87635; 94640

== ENCOUNTER 2022-11-21 15:56 | Inpatient (IN) | payer OTHER ==
[2022-11-21] MEDS ORDERED: BENZONATATE 200 MG CAPSULE PO PRN (21:44)
[2022-11-21] MEDS ORDERED: guaiFENesin 600 MG TABLET.ER (FP) PO PRN (21:44)
[2022-11-21] MEDS ORDERED: MAGNESIUM HYDROX 2400MG/30ML ORAL SUSPENSION 30 ML CUP PO PRN (21:44)
[2022-11-21] MEDS ORDERED: ACETAMINOPHEN 325 MG TABLET (FP) PO PRN (21:44)
[2022-11-21] MEDS ORDERED: BENZOCAINE/MENTHOL (CHLORASEPTIC ) LOZENGE MM PRN (21:44)
[2022-11-21] MEDS ORDERED: NALOXONE HCL (KLOXXADO) 8 MG SPRAY NS PRN (21:44)
[2022-11-21] MEDS ORDERED: IBUPROFEN 400 MG TABLET (FP) PO PRN (21:44)
[2022-11-21] MEDS ORDERED: AMMONIUM LACTATE 12% LOTION 225 GM BOTTLE TP PRN (21:44)
[2022-11-21] MEDS ORDERED: COLLOIDAL OATMEAL 1 BAR EACH TP PRN (21:44)
[2022-11-21] MEDS ORDERED: POLYETHYLENE GLYCOL (HEALTHYLAX) 3350 17 GM PACKET PO PRN (21:44)
[2022-11-21] MEDS ORDERED: TUBERCULIN PPD 5 TU/0.1ML SYRINGE (IN PATIENT USE ONLY) ID ONE (21:44)
[2022-11-21] MEDS ORDERED: NALOXONE HCL 0.4 MG/ML VIAL IVPUSH PRN (21:44)
[2022-11-21] MEDS ORDERED: LOPERAMIDE HCL 2 MG CAPSULE PO PRN (21:44)
[2022-11-21] MEDS ORDERED: MAG HYDROX/AL HYDROX/SIMETH 30 ML UNIT-DOSE CUP PO PRN (21:44)
[2022-11-21] MEDS: BUDESONIDE/FORMETEROL FUMARATE 160/4.5 mcg INHALER IH SCH (22:22)
[2022-11-21] MEDS: THIAMINE HCL 100 MG TABLET (FP) PO SCH (22:22)
[2022-11-21] MEDS: MELATONIN 5 MG TABLETS PO SCH (22:22)
[2022-11-22 07:07] VITALS: RESP 18
[2022-11-22] MEDS: PRENATAL VITAMINS W/ FOLIC ACID TABLET (FP) PO SCH (09:51)
[2022-11-22] MEDS: SULFAMETHOXAZOLE/TRIMETHOPRIM 800MG/160MG D.S. TABLET PO SCH (09:53)
[2022-11-22] MEDS: BUDESONIDE/FORMETEROL FUMARATE 160/4.5 mcg INHALER IH SCH ×2 (09:53→21:29)
[2022-11-22] MEDS: DARUNAVIR/COB/EMTRI/TENOF (SYMTUZA) TABLET (NF) PO SCH (11:24)
[2022-11-22] MEDS: THIAMINE HCL 100 MG TABLET (FP) PO SCH (21:29)
[2022-11-22] MEDS: MELATONIN 5 MG TABLETS PO SCH (21:29)
[2022-11-23] MEDS: DARUNAVIR/COB/EMTRI/TENOF (SYMTUZA) TABLET (NF) PO SCH (08:11)
[2022-11-23] MEDS ORDERED: PATIENT'S OWN MEDICATION (NON-FORMULARY) (Darunavir/Cob/Emtri/Tenof Alaf 1 EACH Tablet) PO SCH (10:00)
[2022-11-23] MEDS: PRENATAL VITAMINS W/ FOLIC ACID TABLET (FP) PO SCH (10:25)
[2022-11-23] MEDS: SULFAMETHOXAZOLE/TRIMETHOPRIM 800MG/160MG D.S. TABLET PO SCH (10:25)
[2022-11-23] MEDS: BUDESONIDE/FORMETEROL FUMARATE 160/4.5 mcg INHALER IH SCH ×2 (10:54→21:31)
[2022-11-23] MEDS: THIAMINE HCL 100 MG TABLET (FP) PO SCH (21:32)
[2022-11-23] MEDS: QUEtiapine FUMARATE 50 MG TABLET PO SCH (21:32)
[2022-11-23] MEDS: MELATONIN 5 MG TABLETS PO SCH (21:32)
[2022-11-24] MEDS: ALBUTEROL SO4 HFA INHALER IH PRN (06:14)
[2022-11-24] MEDS: DARUNAVIR/COB/EMTRI/TENOF (SYMTUZA) TABLET (NF) PO SCH (07:36)
[2022-11-24] MEDS: PRENATAL VITAMINS W/ FOLIC ACID TABLET (FP) PO SCH (10:05)
[2022-11-24] MEDS: BUDESONIDE/FORMETEROL FUMARATE 160/4.5 mcg INHALER IH SCH ×2 (10:06→21:33)
[2022-11-24] MEDS: SULFAMETHOXAZOLE/TRIMETHOPRIM 800MG/160MG D.S. TABLET PO SCH (10:06)
[2022-11-24] MEDS: THIAMINE HCL 100 MG TABLET (FP) PO SCH (21:33)
[2022-11-24] MEDS: MELATONIN 5 MG TABLETS PO SCH (21:33)
[2022-11-24] MEDS: QUEtiapine FUMARATE 50 MG TABLET PO SCH (21:34)
[2022-11-25] MEDS: DARUNAVIR/COB/EMTRI/TENOF (SYMTUZA) TABLET (NF) PO SCH (07:06)
[2022-11-25] MEDS: SULFAMETHOXAZOLE/TRIMETHOPRIM 800MG/160MG D.S. TABLET PO SCH (09:52)
[2022-11-25] MEDS: PRENATAL VITAMINS W/ FOLIC ACID TABLET (FP) PO SCH (09:52)
[2022-11-25] MEDS: BUDESONIDE/FORMETEROL FUMARATE 160/4.5 mcg INHALER IH SCH ×2 (09:52→21:18)
[2022-11-25] MEDS: THIAMINE HCL 100 MG TABLET (FP) PO SCH (21:17)
[2022-11-25] MEDS: MELATONIN 5 MG TABLETS PO SCH (21:17)
[2022-11-25] MEDS: QUEtiapine FUMARATE 50 MG TABLET PO SCH (21:18)
[2022-11-26] MEDS: DARUNAVIR/COB/EMTRI/TENOF (SYMTUZA) TABLET (NF) PO SCH (07:15)
[2022-11-26] MEDS: PRENATAL VITAMINS W/ FOLIC ACID TABLET (FP) PO SCH (09:43)
[2022-11-26] MEDS: SULFAMETHOXAZOLE/TRIMETHOPRIM 800MG/160MG D.S. TABLET PO SCH (09:43)
[2022-11-26] MEDS: BUDESONIDE/FORMETEROL FUMARATE 160/4.5 mcg INHALER IH SCH ×2 (09:43→21:26)
[2022-11-26] MEDS: MELATONIN 5 MG TABLETS PO SCH (21:26)
[2022-11-26] MEDS: THIAMINE HCL 100 MG TABLET (FP) PO SCH (21:26)
[2022-11-26] MEDS: QUEtiapine FUMARATE 50 MG TABLET PO SCH (21:26)
[2022-11-27] MEDS: DARUNAVIR/COB/EMTRI/TENOF (SYMTUZA) TABLET (NF) PO SCH (07:06)
[2022-11-27] MEDS: SULFAMETHOXAZOLE/TRIMETHOPRIM 800MG/160MG D.S. TABLET PO SCH (10:17)
[2022-11-27] MEDS: PRENATAL VITAMINS W/ FOLIC ACID TABLET (FP) PO SCH (10:17)
[2022-11-27] MEDS: BUDESONIDE/FORMETEROL FUMARATE 160/4.5 mcg INHALER IH SCH ×2 (10:17→21:35)
[2022-11-27] MEDS: MELATONIN 5 MG TABLETS PO SCH (21:35)
[2022-11-27] MEDS: QUEtiapine FUMARATE 50 MG TABLET PO SCH (21:35)
[2022-11-27] MEDS: THIAMINE HCL 100 MG TABLET (FP) PO SCH (21:35)
[2022-11-28] MEDS: DARUNAVIR/COB/EMTRI/TENOF (SYMTUZA) TABLET (NF) PO SCH (07:01)
[2022-11-28] MEDS: BUDESONIDE/FORMETEROL FUMARATE 160/4.5 mcg INHALER IH SCH ×2 (09:54→21:27)
[2022-11-28] MEDS: PRENATAL VITAMINS W/ FOLIC ACID TABLET (FP) PO SCH (09:54)
[2022-11-28] MEDS: ALBUTEROL SO4 HFA INHALER IH PRN (09:55)
[2022-11-28] MEDS: SULFAMETHOXAZOLE/TRIMETHOPRIM 800MG/160MG D.S. TABLET PO SCH (09:55)
[2022-11-28] MEDS: QUEtiapine FUMARATE 50 MG TABLET PO SCH (21:26)
[2022-11-28] MEDS: MELATONIN 5 MG TABLETS PO SCH (21:26)
[2022-11-28] MEDS: THIAMINE HCL 100 MG TABLET (FP) PO SCH (21:27)
[2022-11-29] MEDS: DARUNAVIR/COB/EMTRI/TENOF (SYMTUZA) TABLET (NF) PO SCH (07:15)
[2022-11-29] MEDS: PRENATAL VITAMINS W/ FOLIC ACID TABLET (FP) PO SCH (09:42)
[2022-11-29] MEDS: SULFAMETHOXAZOLE/TRIMETHOPRIM 800MG/160MG D.S. TABLET PO SCH (09:42)
[2022-11-29] MEDS: BUDESONIDE/FORMETEROL FUMARATE 160/4.5 mcg INHALER IH SCH ×2 (09:42→21:49)
[2022-11-29] MEDS: ALBUTEROL SO4 HFA INHALER IH PRN (09:43)
[2022-11-29] MEDS: THIAMINE HCL 100 MG TABLET (FP) PO SCH (21:49)
[2022-11-29] MEDS: QUEtiapine FUMARATE 50 MG TABLET PO SCH (21:49)
[2022-11-29] MEDS: MELATONIN 5 MG TABLETS PO SCH (22:26)
[2022-11-30] MEDS: DARUNAVIR/COB/EMTRI/TENOF (SYMTUZA) TABLET (NF) PO SCH (07:12)
[2022-11-30] MEDS: BUDESONIDE/FORMETEROL FUMARATE 160/4.5 mcg INHALER IH SCH ×2 (09:40→21:41)
[2022-11-30] MEDS: ALBUTEROL SO4 HFA INHALER IH PRN (09:41)
[2022-11-30] MEDS: PRENATAL VITAMINS W/ FOLIC ACID TABLET (FP) PO SCH (09:42)
[2022-11-30] MEDS: SULFAMETHOXAZOLE/TRIMETHOPRIM 800MG/160MG D.S. TABLET PO SCH (09:42)
[2022-11-30] MEDS: THIAMINE HCL 100 MG TABLET (FP) PO SCH (21:41)
[2022-11-30] MEDS: MELATONIN 5 MG TABLETS PO SCH (21:41)
[2022-11-30] MEDS: QUEtiapine FUMARATE 50 MG TABLET PO SCH (21:41)
[2022-12-01] MEDS: DARUNAVIR/COB/EMTRI/TENOF (SYMTUZA) TABLET (NF) PO SCH (07:01)
[2022-12-01] MEDS: SULFAMETHOXAZOLE/TRIMETHOPRIM 800MG/160MG D.S. TABLET PO SCH (09:35)
[2022-12-01] MEDS: BUDESONIDE/FORMETEROL FUMARATE 160/4.5 mcg INHALER IH SCH ×2 (09:35→21:26)
[2022-12-01] MEDS: PRENATAL VITAMINS W/ FOLIC ACID TABLET (FP) PO SCH (09:35)
[2022-12-01] MEDS: THIAMINE HCL 100 MG TABLET (FP) PO SCH (21:26)
[2022-12-01] MEDS: QUEtiapine FUMARATE 50 MG TABLET PO SCH (21:26)
[2022-12-01] MEDS: MELATONIN 5 MG TABLETS PO SCH (21:26)
[2022-12-02] MEDS: DARUNAVIR/COB/EMTRI/TENOF (SYMTUZA) TABLET (NF) PO SCH (07:08)
[2022-12-02] MEDS: BUDESONIDE/FORMETEROL FUMARATE 160/4.5 mcg INHALER IH SCH ×2 (09:45→21:39)
[2022-12-02] MEDS: SULFAMETHOXAZOLE/TRIMETHOPRIM 800MG/160MG D.S. TABLET PO SCH (09:45)
[2022-12-02] MEDS: PRENATAL VITAMINS W/ FOLIC ACID TABLET (FP) PO SCH (09:45)
[2022-12-02] MEDS: ALBUTEROL SO4 HFA INHALER IH PRN (09:46)
[2022-12-02] MEDS: THIAMINE HCL 100 MG TABLET (FP) PO SCH (21:39)
[2022-12-02] MEDS: MELATONIN 5 MG TABLETS PO SCH (21:39)
[2022-12-02] MEDS: QUEtiapine FUMARATE 50 MG TABLET PO SCH (21:39)
[2022-12-03] MEDS: DARUNAVIR/COB/EMTRI/TENOF (SYMTUZA) TABLET (NF) PO SCH (07:45)
[2022-12-03] MEDS: BUDESONIDE/FORMETEROL FUMARATE 160/4.5 mcg INHALER IH SCH ×2 (09:52→21:33)
[2022-12-03] MEDS: PRENATAL VITAMINS W/ FOLIC ACID TABLET (FP) PO SCH (09:52)
[2022-12-03] MEDS: SULFAMETHOXAZOLE/TRIMETHOPRIM 800MG/160MG D.S. TABLET PO SCH (09:52)
[2022-12-03] MEDS: ALBUTEROL SO4 HFA INHALER IH PRN (09:53)
[2022-12-03] MEDS: QUEtiapine FUMARATE 50 MG TABLET PO SCH (21:34)
[2022-12-03] MEDS: MELATONIN 5 MG TABLETS PO SCH (21:34)
[2022-12-03] MEDS: THIAMINE HCL 100 MG TABLET (FP) PO SCH (21:34)
[2022-12-04] MEDS: ALBUTEROL SO4 HFA INHALER IH PRN (06:48)
[2022-12-04] MEDS: DARUNAVIR/COB/EMTRI/TENOF (SYMTUZA) TABLET (NF) PO SCH (07:43)
[2022-12-04] MEDS: BUDESONIDE/FORMETEROL FUMARATE 160/4.5 mcg INHALER IH SCH ×2 (09:45→21:40)
[2022-12-04] MEDS: PRENATAL VITAMINS W/ FOLIC ACID TABLET (FP) PO SCH (09:45)
[2022-12-04] MEDS: SULFAMETHOXAZOLE/TRIMETHOPRIM 800MG/160MG D.S. TABLET PO SCH (09:45)
[2022-12-04] MEDS: THIAMINE HCL 100 MG TABLET (FP) PO SCH (21:40)
[2022-12-04] MEDS: QUEtiapine FUMARATE 50 MG TABLET PO SCH (21:40)
[2022-12-04] MEDS: MELATONIN 5 MG TABLETS PO SCH (21:40)
[2022-12-05] MEDS: DARUNAVIR/COB/EMTRI/TENOF (SYMTUZA) TABLET (NF) PO SCH (07:08)
[2022-12-05 07:18] VITALS: TEMP 97.4
[2022-12-05] MEDS: IBUPROFEN 600 MG TABLET (FP) PO PRN ×2 (08:57→20:55)
[2022-12-05] MEDS: BUDESONIDE/FORMETEROL FUMARATE 160/4.5 mcg INHALER IH SCH ×2 (09:46→21:34)
[2022-12-05] MEDS: PRENATAL VITAMINS W/ FOLIC ACID TABLET (FP) PO SCH (09:47)
[2022-12-05] MEDS: SULFAMETHOXAZOLE/TRIMETHOPRIM 800MG/160MG D.S. TABLET PO SCH (09:47)
[2022-12-05] MEDS: QUEtiapine FUMARATE 50 MG TABLET PO SCH (21:34)
[2022-12-05] MEDS: MELATONIN 5 MG TABLETS PO SCH (21:34)
[2022-12-05] MEDS: THIAMINE HCL 100 MG TABLET (FP) PO SCH (21:34)
[2022-12-06] MEDS: DARUNAVIR/COB/EMTRI/TENOF (SYMTUZA) TABLET (NF) PO SCH (07:12)
[2022-12-06 07:18] VITALS: BP 126/90; PULSE 81
[2022-12-06] MEDS: SULFAMETHOXAZOLE/TRIMETHOPRIM 800MG/160MG D.S. TABLET PO SCH (09:35)
[2022-12-06] MEDS: PRENATAL VITAMINS W/ FOLIC ACID TABLET (FP) PO SCH (09:35)
[2022-12-06] MEDS: BUDESONIDE/FORMETEROL FUMARATE 160/4.5 mcg INHALER IH SCH (09:36)
== END 2022-12-06 10:32 | disposition home or self-care (01) | DRG 895 ==
LOC: YASAS 15:56 → Y5N 15:57
PROVIDERS: ADMIT Allergy & Immunology; ATTEND Psychiatry & Neurology Pain Medicine
PROC: HZ42ZZZ Group Counseling for Substance Abuse Treatment, Cognitive-Behavioral (ICD-10-PCS; principal; 2022-11-21)
DX: F10.20 Alcohol dependence, uncomplicated (principal); F14.20 Cocaine dependence, uncomplicated; F12.20 Cannabis dependence, uncomplicated; F17.210 Nicotine dependence, cigarettes, uncomplicated; Z21 Asymptomatic human immunodeficiency virus [HIV] infection status; F64.0 Transsexualism
CPT/HCPCS: 83036

== ENCOUNTER 2024-02-27 11:02 | Inpatient (IN) | payer OTHER ==
[2024-02-27 11:50] VITALS: BMI 22.9
[2024-02-27] MEDS ORDERED: LOPERAMIDE HCL 2 MG CAPSULE PO PRN (12:06)
[2024-02-27] MEDS ORDERED: DICYCLOMINE HCL 10 MG CAPSULE PO PRN (12:06)
[2024-02-27] MEDS ORDERED: ONDANSETRON *ODT* 4 MG TABLET SL PRN (12:06)
[2024-02-27] MEDS ORDERED: guaiFENesin 600 MG TABLET.ER (FP) PO PRN (12:06)
[2024-02-27] MEDS ORDERED: IBUPROFEN 400 MG TABLET (FP) PO PRN (12:06)
[2024-02-27] MEDS ORDERED: BENZONATATE 200 MG CAPSULE PO PRN (12:06)
[2024-02-27] MEDS ORDERED: MAG HYDROX/AL HYDROX/SIMETH 30 ML UNIT-DOSE CUP PO PRN (12:06)
[2024-02-27] MEDS ORDERED: MAGNESIUM HYDROX 2400MG/30ML ORAL SUSPENSION 30 ML CUP PO PRN (12:06)
[2024-02-27] MEDS ORDERED: NALOXONE (NARCAN) HCL 4 MG/0.1 ML SPRAY NS PRN (12:06)
[2024-02-27] MEDS ORDERED: BISMUTH SUBSALICYLATE 262 MG/15 ML BTL PO PRN (12:06)
[2024-02-27] MEDS ORDERED: POLYETHYLENE GLYCOL (HEALTHYLAX) 3350 17 GM PACKET PO PRN (12:06)
[2024-02-27] MEDS ORDERED: BENZOCAINE/MENTHOL (CHLORASEPTIC ) LOZENGE MM PRN (12:06)
[2024-02-27] MEDS ORDERED: ALBUTEROL SO4 HFA INHALER IH PRN (12:24)
[2024-02-27] MEDS ORDERED: NICOTINE POLACRILEX 2 MG GUM BUC PRN (12:26)
[2024-02-27] MEDS ORDERED: ELVITEG/COB/EMTRI/TENOF (GENVOYA) TABLET PO SCH (12:30)
[2024-02-27] MEDS: NICOTINE 21 MG/24 HOURS TOPICAL PATCH TD SCH (12:36)
[2024-02-27] MEDS: chlordiazePOXIDE HCL 25 MG CAPSULE PO PRN (12:42)
[2024-02-27] MEDS ORDERED: NICOTINE 21 MG/24 HOURS TOPICAL PATCH ONE (12:45)
[2024-02-27] MEDS ORDERED: chlordiazePOXIDE HCL 25 MG CAPSULE ONE (12:45)
[2024-02-27] MEDS: METHOCARBAMOL 500 MG TABLET PO PRN (12:46)
[2024-02-27] MEDS ORDERED: METHOCARBAMOL 500 MG TABLET ONE (13:11)
[2024-02-27] MEDS: DARUNAVIR/COB/EMTRI/TENOF ALAF 1 EACH TABLET PO SCH (13:51)
[2024-02-27] MEDS: SULFAMETHOXAZOLE/TRIMETHOPRIM 800MG/160MG D.S. TABLET PO SCH (13:51)
[2024-02-27] MEDS: chlordiazePOXIDE HCL 25 MG CAPSULE PO SCH (17:16)
[2024-02-27] MEDS: BUDESONIDE/FORMETEROL FUMARATE 160/4.5 mcg INHALER IH SCH (22:41)
[2024-02-27] MEDS: THIAMINE 100 MG TABLET PO SCH (22:42)
[2024-02-27] MEDS: MELATONIN 5 MG TABLETS PO SCH (22:42)
[2024-02-27] MEDS: risperiDONE 1 MG TABLET PO SCH (22:42)
[2024-02-28] MEDS: BUDESONIDE/FORMETEROL FUMARATE 80/4.5 mcg INHALER IH SCH (00:41)
[2024-02-28] MEDS: PRENATAL VITAMINS W/ FOLIC ACID TABLET (FP) PO SCH (10:14)
[2024-02-28 11:33] LABS: POTASSIUM 4.4 mmol/L (3.5-5.1)
[2024-02-28 11:35] LABS: CALCIUM 8.5 mg/dL (8.5-10.1)
[2024-02-28 11:36] LABS: ALBUMIN 3.1 g/dl (3.4-5.0); BLOOD UREA NITROGEN 21.8 mg/dL (7-18); HEMATOCRIT 32.7 % (32.4-45.2); HEMOGLOBIN 10.8 GM/dL (10.7-15.3); MEAN CELL VOLUME 84.8 fl (80-96); MEAN PLT VOLUME 7.1 fl (7.5-11.1); PLATELET COUNT 271 10^3/uL (134-434); RBC 3.85 M/mm3 (3.60-5.2); RDW 13.8 % (11.6-15.6); WHITE BLOOD COUNT 4.6 K/mm3 (4.0-10.0)
[2024-02-28 11:40] LABS: BILIRUBIN,TOTAL 0.2 mg/dL (0.2-1); TOT PROT 6.4 g/dl (6.4-8.2)
[2024-02-28] MEDS: ACETAMINOPHEN 325 MG TABLET (FP) PO PRN (17:45)
[2024-02-29] MEDS: chlordiazePOXIDE HCL 25 MG CAPSULE PO SCH (05:50)
[2024-02-29] MEDS: IBUPROFEN 600 MG TABLET (FP) PO PRN (20:40)
[2024-03-01] MEDS ORDERED: chlordiazePOXIDE HCL 10 MG CAPSULE PO PRN
[2024-03-01] MEDS: chlordiazePOXIDE HCL 10 MG CAPSULE PO SCH (05:40)
[2024-03-01] MEDS: ESTRADIOL 2 MG TABLET (NON-FORMULARY) PO SCH (22:18)
[2024-03-02] MEDS: hydrOXYzine PAMOATE 25 MG CAPSULE (FP) PO PRN (01:59)
[2024-03-02] MEDS: chlordiazePOXIDE HCL 10 MG CAPSULE PO SCH (05:20)
[2024-03-02 17:03] VITALS: RESP 18
[2024-03-03] MEDS: chlordiazePOXIDE HCL 10 MG CAPSULE PO ONE (05:53)
[2024-03-03] MEDS ORDERED: NALOXONE (NYS OPIOID OVERDOSE PROGRAM) 4 MG/0.1 ML SPRAY NS PRN (08:00)
[2024-03-03 11:38] VITALS: BP 113/70; PULSE 79; TEMP 98
== END 2024-03-03 10:50 | disposition other institution (70) | DRG 897 ==
LOC: YASAS 11:02 → Y3N 12:36
PROVIDERS: ADMIT Allergy & Immunology; ATTEND Surgery
PROC: HZ2ZZZZ Detoxification Services for Substance Abuse Treatment (ICD-10-PCS; principal; 2024-02-27)
DX: F10.230 Alcohol dependence with withdrawal, uncomplicated (principal); F14.20 Cocaine dependence, uncomplicated; F12.20 Cannabis dependence, uncomplicated; F17.210 Nicotine dependence, cigarettes, uncomplicated; F19.24 Other psychoactive substance dependence with psychoactive substance-induced mood disorder; F31.9 Bipolar disorder, unspecified; Z21 Asymptomatic human immunodeficiency virus [HIV] infection status; E11.9 Type 2 diabetes mellitus without complications; J45.20 Mild intermittent asthma, uncomplicated; K21.9 Gastro-esophageal reflux disease without esophagitis; Z86.69 Personal history of other diseases of the nervous system and sense organs; Z79.899 Other long term (current) drug therapy
CPT/HCPCS: 36415; 80053; 80178; 80305; 80307; 81025; 83036; 85027; 86593; 86780; 93005; 93010

== ENCOUNTER 2024-03-03 11:55 | Inpatient (IN) | payer OTHER ==
[2024-03-03] MEDS ORDERED: BENZONATATE 200 MG CAPSULE PO PRN (15:29)
[2024-03-03] MEDS ORDERED: NICOTINE POLACRILEX 2 MG GUM BUC PRN (15:29)
[2024-03-03] MEDS ORDERED: POLYETHYLENE GLYCOL (HEALTHYLAX) 3350 17 GM PACKET PO PRN (15:29)
[2024-03-03] MEDS ORDERED: IBUPROFEN 600 MG TABLET (FP) PO PRN (15:29)
[2024-03-03] MEDS ORDERED: ACETAMINOPHEN 325 MG TABLET (FP) PO PRN (15:29)
[2024-03-03] MEDS ORDERED: NALOXONE (NARCAN) HCL 4 MG/0.1 ML SPRAY NS PRN (15:29)
[2024-03-03] MEDS ORDERED: IBUPROFEN 400 MG TABLET (FP) PO PRN (15:29)
[2024-03-03] MEDS ORDERED: BENZOCAINE/MENTHOL (CHLORASEPTIC ) LOZENGE MM PRN (15:29)
[2024-03-03] MEDS ORDERED: guaiFENesin 600 MG TABLET.ER (FP) PO PRN (15:29)
[2024-03-03] MEDS ORDERED: NALOXONE HCL 0.4 MG/ML VIAL IVPUSH PRN (15:29)
[2024-03-03] MEDS ORDERED: MAGNESIUM HYDROX 2400MG/30ML ORAL SUSPENSION 30 ML CUP PO PRN (15:29)
[2024-03-03] MEDS ORDERED: PATIENT'S OWN MEDICATION (NON-FORMULARY) (Fluticasone Propion/Salmeterol [Advair 250-50 Di IH SCH (22:00)
[2024-03-03] MEDS: risperiDONE 1 MG TABLET PO SCH (22:31)
[2024-03-03] MEDS: MELATONIN 5 MG TABLETS PO SCH (22:31)
[2024-03-03] MEDS: THIAMINE 100 MG TABLET PO SCH (22:33)
[2024-03-03] MEDS: BUDESONIDE/FORMETEROL FUMARATE 80/4.5 mcg INHALER IH SCH (22:34)
[2024-03-04] MEDS: NICOTINE 21 MG/24 HOURS TOPICAL PATCH TD SCH (09:12)
[2024-03-04] MEDS: PRENATAL VITAMINS W/ FOLIC ACID TABLET (FP) PO SCH (09:12)
[2024-03-04] MEDS: SULFAMETHOXAZOLE/TRIMETHOPRIM 800MG/160MG D.S. TABLET PO SCH (09:13)
[2024-03-04] MEDS: ESTRADIOL 2 MG TABLET (NON-FORMULARY) PO SCH (09:13)
[2024-03-04] MEDS: DARUNAVIR/COB/EMTRI/TENOF ALAF 1 EACH TABLET PO SCH (09:14)
[2024-03-04] MEDS ORDERED: ESTRADIOL 2 MG TABLET (NON-FORMULARY) PO SCH ×2 (10:00)
[2024-03-04] MEDS: METHOCARBAMOL 500 MG TABLET PO PRN (16:57)
[2024-03-04] MEDS: hydrOXYzine PAMOATE 25 MG CAPSULE (FP) PO PRN (16:57)
[2024-03-09] MEDS: NICOTINE 7 MG/24 HOURS TOPICAL PATCH TD SCH (15:36)
[2024-03-09] MEDS: LOPERAMIDE HCL 2 MG CAPSULE PO PRN (19:09)
[2024-03-11] MEDS: MAG HYDROX/AL HYDROX/SIMETH 30 ML UNIT-DOSE CUP PO PRN (13:26)
[2024-03-14] MEDS: MELATONIN 5 MG TABLETS PO SCH (21:12)
[2024-03-14] MEDS: LIDOCAINE PATCH REMOVAL MC SCH (21:13)
[2024-03-15] MEDS: LIDOCAINE 4% PATCH TP SCH (03:10)
[2024-03-15] MEDS: NICOTINE 14 MG/24 HOURS TOPICAL PATCH TD SCH (10:44)
[2024-03-16] MEDS ORDERED: LANOLIN (EMOLL) 30 GM TUBE TP SCH (10:00)
[2024-03-16] MEDS: PETROLATUM, WHITE 30 GM TUBE TP SCH (10:29)
[2024-03-16] MEDS: VITAMINS A AND D TOPICAL OINTMENT TP SCH (10:29)
[2024-03-19 07:06] VITALS: BP 124/76; PULSE 63; RESP 18; TEMP 97.7
[2024-03-19] MEDS: NALOXONE (NYS OPIOID OVERDOSE PROGRAM) 4 MG/0.1 ML SPRAY NS SCH (10:14)
== END 2024-03-19 10:20 | disposition home or self-care (01) | DRG 895 ==
LOC: YASAS 11:55 → Y3NR 11:58 → Y5N 03-05 12:09
PROVIDERS: ADMIT Neuromusculoskeletal Medicine & OMM; ATTEND Psychiatry & Neurology Pain Medicine
PROC: HZ42ZZZ Group Counseling for Substance Abuse Treatment, Cognitive-Behavioral (ICD-10-PCS; principal; 2024-03-03)
DX: F10.20 Alcohol dependence, uncomplicated (principal); F14.20 Cocaine dependence, uncomplicated; F16.10 Hallucinogen abuse, uncomplicated; F12.10 Cannabis abuse, uncomplicated; F17.210 Nicotine dependence, cigarettes, uncomplicated; F41.8 Other specified anxiety disorders; F64.0 Transsexualism; Z21 Asymptomatic human immunodeficiency virus [HIV] infection status; J45.909 Unspecified asthma, uncomplicated; Z86.59 Personal history of other mental and behavioral disorders
CPT/HCPCS: 80305; 80307; 87811

== ENCOUNTER 2024-09-17 14:28 | Inpatient (IN) | payer OTHER ==
[2024-09-17 14:55] VITALS: BMI 23.9
[2024-09-17] MEDS ORDERED: IBUPROFEN 600 MG TABLET (FP) PO PRN (15:14)
[2024-09-17] MEDS ORDERED: LOPERAMIDE HCL 2 MG CAPSULE PO PRN (15:14)
[2024-09-17] MEDS ORDERED: BENZONATATE 200 MG CAPSULE PO PRN (15:14)
[2024-09-17] MEDS ORDERED: DICYCLOMINE HCL 10 MG CAPSULE PO PRN (15:14)
[2024-09-17] MEDS ORDERED: ONDANSETRON *ODT* 4 MG TABLET SL PRN (15:14)
[2024-09-17] MEDS ORDERED: IBUPROFEN 400 MG TABLET (FP) PO PRN (15:14)
[2024-09-17] MEDS ORDERED: MAGNESIUM HYDROX 2400MG/30ML ORAL SUSPENSION 30 ML CUP PO PRN (15:14)
[2024-09-17] MEDS ORDERED: NALOXONE (NARCAN) HCL 4 MG/0.1 ML SPRAY NS PRN (15:14)
[2024-09-17] MEDS ORDERED: ACETAMINOPHEN 325 MG TABLET (FP) PO PRN (15:14)
[2024-09-17] MEDS ORDERED: BISMUTH SUBSALICYLATE 524 MG/30 ML PO PRN (15:14)
[2024-09-17] MEDS ORDERED: chlordiazePOXIDE HCL 25 MG CAPSULE PO PRN (15:14)
[2024-09-17] MEDS ORDERED: BENZOCAINE/MENTHOL (CHLORASEPTIC ) LOZENGE MM PRN (15:14)
[2024-09-17] MEDS ORDERED: POLYETHYLENE GLYCOL (HEALTHYLAX) 3350 17 GM PACKET PO PRN (15:14)
[2024-09-17] MEDS ORDERED: ALBUTEROL SO4 HFA INHALER IH PRN (17:05)
[2024-09-17] MEDS ORDERED: amLODIPine BESYLATE 5 MG TABLET (FP) ONE (17:56)
[2024-09-17] MEDS: amLODIPine BESYLATE 5 MG TABLET (FP) PO SCH (17:59)
[2024-09-17] MEDS: DARUNAVIR/COB/EMTRI/TENOF ALAF 1 EACH TABLET PO SCH (18:13)
[2024-09-17] MEDS: NALTREXONE HCL 50 MG TABLET PO ONE ×2 (19:17→19:18)
[2024-09-17] MEDS: MAG HYDROX/AL HYDROX/SIMETH 30 ML UNIT-DOSE CUP PO PRN (21:06)
[2024-09-17] MEDS: ESTRADIOL 2 MG TABLET (NON-FORMULARY) PO SCH (22:06)
[2024-09-17] MEDS: chlordiazePOXIDE HCL 25 MG CAPSULE PO SCH (22:25)
[2024-09-17] MEDS: MELATONIN 5 MG TABLETS PO SCH (22:25)
[2024-09-17] MEDS: METHOCARBAMOL 500 MG TABLET PO PRN (22:25)
[2024-09-17] MEDS: THIAMINE 100 MG TABLET PO SCH (22:25)
[2024-09-17] MEDS: BUDESONIDE/FORMETEROL FUMARATE 80/4.5 mcg INHALER IH SCH (22:26)
[2024-09-18] MEDS: PRENATAL VITAMINS W/ FOLIC ACID TABLET (FP) PO SCH (10:41)
[2024-09-18] MEDS: SULFAMETHOXAZOLE/TRIMETHOPRIM 800MG/160MG D.S. TABLET PO SCH (10:42)
[2024-09-18] MEDS: NICOTINE 21 MG/24 HOURS TOPICAL PATCH TD SCH (10:43)
[2024-09-18] MEDS: NALTREXONE HCL 50 MG TABLET PO SCH (10:43)
[2024-09-18 11:24] LABS: HEMATOCRIT 37.9 % (34.1-44.9); HEMOGLOBIN 11.4 g/dL (11.2-15.7); MCHC 30.1 g/dl (32.2-35.5); MEAN CELL VOLUME 87.5 fl (79.4-94.8); MEAN PLT VOLUME 9.1 fl (9.4-12.3); PLATELET COUNT 339 x10^3/uL (182-369); POTASSIUM 4.3 mmol/L (3.5-5.1)
[2024-09-18 11:30] LABS: ALBUMIN 3.4 g/dl (3.4-5.0); CALCIUM 9.3 mg/dL (8.5-10.1)
[2024-09-18 11:31] LABS: BLOOD UREA NITROGEN 11.3 mg/dL (7-18)
[2024-09-18 11:34] LABS: BILIRUBIN,TOTAL 0.3 mg/dL (0.2-1); CREATININE 1.2 mg/dL (0.55-1.3); TOT PROT 7.1 g/dl (6.4-8.2)
[2024-09-19] MEDS: chlordiazePOXIDE HCL 25 MG CAPSULE PO SCH (06:00)
[2024-09-19] MEDS: hydrOXYzine PAMOATE 25 MG CAPSULE (FP) PO PRN (12:20)
[2024-09-19] MEDS: risperiDONE 1 MG TABLET PO SCH (22:48)
[2024-09-19] MEDS: guaiFENesin 600 MG TABLET.ER (FP) PO PRN (22:51)
[2024-09-20] MEDS ORDERED: chlordiazePOXIDE HCL 10 MG CAPSULE PO PRN
[2024-09-20] MEDS: chlordiazePOXIDE HCL 10 MG CAPSULE PO SCH ×2 (06:00→13:20)
[2024-09-21] MEDS: chlordiazePOXIDE HCL 10 MG CAPSULE PO SCH (06:16)
[2024-09-21] MEDS: chlordiazePOXIDE 5 MG CAPSULE PO SCH (17:05)
[2024-09-22] MEDS ORDERED: chlordiazePOXIDE HCL 10 MG CAPSULE PO ONE (05:00)
[2024-09-22] MEDS: chlordiazePOXIDE 5 MG CAPSULE PO ONE (06:18)
[2024-09-22 07:08] VITALS: RESP 18
[2024-09-22 09:30] VITALS: BP 114/80; PULSE 90; TEMP 98.9
== END 2024-09-22 10:49 | disposition other institution (70) | DRG 897 ==
LOC: YASAS 14:28 → Y6N 17:46
PROVIDERS: ADMIT Family Medicine; ATTEND Family Medicine
PROC: HZ2ZZZZ Detoxification Services for Substance Abuse Treatment (ICD-10-PCS; principal; 2024-09-17)
DX: F10.230 Alcohol dependence with withdrawal, uncomplicated (principal); F14.20 Cocaine dependence, uncomplicated; F12.20 Cannabis dependence, uncomplicated; F17.210 Nicotine dependence, cigarettes, uncomplicated; F31.9 Bipolar disorder, unspecified; F64.0 Transsexualism; Z21 Asymptomatic human immunodeficiency virus [HIV] infection status; I10 Essential (primary) hypertension; H44.9 Unspecified disorder of globe; Z20.2 Contact with and (suspected) exposure to infections with a predominantly sexual mode of transmission; Z79.899 Other long term (current) drug therapy
CPT/HCPCS: 0241U-QW; 36415; 71046-TC-FY; 80053; 80305; 80307; 81025; 85027; 86593; 86780; 86803; 93005; 93010